=== PATIENT | male | born 1955 | race Caucasian/White ===

== ENCOUNTER 2016-12-20 19:02 | Inpatient (IN) | payer OTHER ==
[2016-12-20] VITALS (9 sets, daily range): BP systolic 129–160; BP diastolic 89–99; PULSE 96–110; RESP 16–18; TEMP 97.8; O2SAT 82–98
[~2016-12-20] VITALS: Ht 172.7 cm; Wt 68.0 kg
[~2016-12-20 19:02] MED LIST: CHLO10 PO; DUONI NEB; FERR324T4 PO; FORM12I INH; IPRAAER IN; NICO21T TD; OMEP20TA39 PO; OXYC5 PO; TEMA15CA PO; THIA100T PO; ZOLP1TAB32 PO
[2016-12-20] MEDS ORDERED: SODIUM CHLORIDE 0.9% FLUSH 5 ML FLUSH IVF PRN (19:30)
[2016-12-20] MEDS ORDERED: methylPREDNISolone SOD SUCC 125 MG/2 ML VIAL IVP ONE (19:30)
[2016-12-20] MEDS: RESP: ALBUTEROL 2.5 MG/IPRATROPIUM 0.5 MG NEB (SCH) INH ×3 (19:43→23:14)
--- NOTE | 2016-12-20 19:52 | PD ---
HPI Chief Complaint: Respiratory Symptoms Time Seen by Provider: 19:16 Travel History International Travel<30 days: No Contact w/Intl Traveler<30days: No Traveled to known affect area: No History of Present Illness HPI 61-year-old male with history of COPD here for evaluation of shortness of breath. The patient has had progressive worsening shortness of breath over the last 2 weeks with cough productive of greenish sputum. No hemoptysis. Coworkers noted that the patient did not look well today and advised that he present to the emergency department for evaluation. He denies chest pain. He does feel clammy with subjective fevers. Dyspnea is at rest, worse with exertion. O2 saturation was noted to be and 60% in triage, and the patient was brought straight back to a room. PFSH Past Medical History Asthma: No Cancer: No Cardiovascular Problems: No Chemotherapy: No COPD: Yes Diminished Hearing: No Endocrine: No Gastrointestinal Disorders: Yes (BLOOD IN STOOL) Genitourinary: No Immune Disorder: No Musculoskeletal: No Neurologic: No Psychiatric: No Reproductive: No Respiratory: Yes Radiation Therapy: No Past Surgical History Abdominal Surgery: No AICD: No Arteriovenous Shunt: No Cardiac Surgery: No Ear Surgery: No Endocrine Surgery: No Eye Surgery: No Genitourinary Surgery: No Gynecologic Surgery: No Insulin Pump: No Joint Replacement: No Oral Surgery: Yes (TONSILLECTOMY) Pacemaker: No Thoracic Surgery: No Tonsillectomy: Yes Other Surgery: Yes Social History Alcohol Use: Yes (SEVERAL BEERS AT NIGHT) Tobacco Use: Yes (> 1 PPD) Substance Use: No Allergies-Medications (Allergen,Severity, Reaction): Coded Allergies: No Known Allergies (Verified , 03/15/15) Reported Meds & Prescriptions Reported Meds & Active Scripts Active Reported Vitamin B-Complex (B-Complex Vitamins) 1 Tab 1 Tab PO DAILY [place] (Hydrocodone-Acetaminophen) 10-325 Mg Tab 1 Tab PO Q6H PRN Multiple Vitamin 1 Tab 1 Tab PO DAILY Omeprazole 20 Mg Tab 20 Mg PO DAILY Nicotine Patch (Nicotine) 21 Mg/24 Hr Patch 21 Mg T-DERMAL DAILY Ferrous Sulfate 325 Mg Tab 325 Mg PO DAILY Combivent Respimat Inh (Ipratropium-Albuterol Inh) 20-100 Detention/Act Aero 1 Puff INH QID Albuterol Neb (Albuterol Sulfate) 2.5 Mg/0.5 Ml Neb 2.5 Mg NEB QID NEB PRN Note: The Albuterol Sulfate Inhalation Solution is concentrated and must be diluted. Read complete instructions carefully before using. Review of Systems Except as stated in HPI: all other systems reviewed are Neg Physical Exam Narrative GENERAL: Well-developed, thin, awake, alert, speaking full sentences, mild respiratory distress. SKIN: Warm and dry. HEAD: Atraumatic. Normocephalic. EYES: Pupils equal and round. No scleral icterus. No injection or drainage. ENT: Mucous membranes pink and moist. NECK: Trachea midline. No JVD. CARDIOVASCULAR: Regular rate and rhythm. No murmur appreciated. RESPIRATORY: No accessory muscle use. Bilateral inspiratory and expiratory wheezes with coarse breath sounds bilaterally. Breath sounds equal bilaterally. GASTROINTESTINAL: Abdomen soft, non-tender, nondistended. MUSCULOSKELETAL: No obvious deformities. No clubbing. No cyanosis. No edema. NEUROLOGICAL: Awake and alert. No obvious cranial nerve deficits. Motor grossly within normal limits. Normal speech. PSYCHIATRIC: Appropriate mood and affect; insight and judgment normal. Data Data Orders Complete Blood Count With Diff (12/20/16 19:22) Comprehensive Metabolic Panel (12/20/16 19:22) B-Type Natriuretic Peptide (12/20/16 19:22) Act Partial Throm Time (Ptt) (12/20/16 19:22) Prothrombin Time / Inr (Pt) (12/20/16 19:22) Ckmb (Isoenzyme) Profile (12/20/16 19:22) Troponin I (12/20/16 19:22) Influenzae A/B Antigen (12/20/16 19:22) Blood Culture (12/20/16 19:22) Iv Access Insert/Monitor (12/20/16 19:22) Electrocardiogram (12/20/16 19:22) Ecg Monitoring (12/20/16 19:22) Oximetry (12/20/16 19:22) Oxygen Administration (12/20/16 19:22) Chest, Single Ap (12/20/16 19:22) Sodium Chloride 0.9% Flush (Ns Flush) (12/20/16 19:30) Methylprednisolone So Succ Inj (Solumedr (12/20/16 19:30) Albuterol-Ipratropium Neb (Duoneb Neb) (12/20/16 19:30) Lactic Acid (2/8/17 19:22) Ceftriaxone Inj (Rocephin Inj) (12/20/16 20:15) Azithromycin Inj (Zithromax Inj) (12/20/16 20:15) Sodium Chlor 0.9% 1000 Ml Inj (Ns 1000 M (12/20/16 20:30) Sodium Polysty Sulfate Liq (Kayexalate L (12/20/16 21:00) Labs Laboratory Tests Test 12/20/16 12/20/16 19:25 19:52 White Blood Count 5.9 TH/MM3 Red Blood Count 4.02 MIL/MM3 Hemoglobin 13.6 GM/DL Hematocrit 41.2 % Mean Corpuscular Volume 102.3 FL Mean Corpuscular Hemoglobin 33.9 PG Mean Corpuscular Hemoglobin 33.1 % Concent Red Cell Distribution Width 13.4 % Platelet Count 139 TH/MM3 Mean Platelet Volume 9.4 FL Neutrophils (%) (Auto) 87.8 % Lymphocytes (%) (Auto) 5.7 % Monocytes (%) (Auto) 5.7 % Eosinophils (%) (Auto) 0.7 % Basophils (%) (Auto) 0.1 % Neutrophils # (Auto) 5.3 TH/MM3 Lymphocytes # (Auto) 0.3 TH/MM3 Monocytes # (Auto) 0.3 TH/MM3 Eosinophils # (Auto) 0.0 TH/MM3 Basophils # (Auto) 0.0 TH/MM3 CBC Comment AUTO DIFF Neutrophils % (Manual) 76 % Band Neutrophils % 12 % Lymphocytes % 8 % Monocytes % 4 % Neutrophils # (Manual) 5.2 TH/MM3 Differential Comment FINAL DIFF MANUAL Platelet Estimate LOW Platelet Morphology Comment NORMAL Prothrombin Time 10.9 SEC Prothromb Time International 1.0 RATIO Ratio Activated Partial 44.1 SEC Thromboplast Time Sodium Level 122 MEQ/L Potassium Level 5.7 MEQ/L Chloride Level 85 MEQ/L Carbon Dioxide Level 30.8 MEQ/L Anion Gap 6 MEQ/L Blood Urea Nitrogen 29 MG/DL Creatinine 1.60 MG/DL Estimat Glomerular Filtration 44 ML/MIN Rate Random Glucose 88 MG/DL Calcium Level 8.6 MG/DL Total Bilirubin 0.7 MG/DL Aspartate Amino Transf 27 U/L (AST/SGOT) Alanine Aminotransferase 24 U/L (ALT/SGPT) Alkaline Phosphatase 138 U/L Total Creatine Kinase 61 U/L Troponin I 0.06 NG/ML B-Type Natriuretic Peptide 1535 PG/ML Total Protein 7.2 GM/DL Albumin 3.2 GM/DL Lactic Acid Level 2.2 mmol/L MDM Medical Decision Making Medical Screen Exam Complete: Yes Emergency Medical Condition: Yes Medical Record Reviewed: Yes Interpretation(s) EKG: Sinus, rate 101, rightward axis, normal intervals, no acute ischemic abnormality. Differential Diagnosis COPD exacerbation, pneumonia, pulmonary edema, CHF, pleural effusion, PE, influenza, ACS Narrative Course Vital signs CBC shows WBC 5.9, hemoglobin 13.6, hematocrit 41.2, platelets 139. Neutrophils 76%, band neutrophils 12%. CMP is remarkable for sodium 122, potassium 5.7, chloride 85, BUN 29, creatinine 1.6, GFR 44. Lactic acid is 2.2. BNP is 1535. Troponin is 0.06. Chest x-ray shows new right basilar airspace disease most characteristic of bronchopneumonia. The patient was given 3 DuoNeb treatments and IV Solu-Medrol and is reporting significant subjective improvement in breathing. He saw his coarse breath sounds bilaterally with end expiratory wheezes bilaterally. O2 saturation is now 78% on room air, 93% on 2 L nasal cannula. Patient was also given IV azithromycin and IV Rocephin. There are no EKG changes for hyperkalemia. The patient was given Kayexalate. A long discussion was had with the patient with his family at the bedside. The patient states he does not wish to stay in the hospital and that he is feeling improved. I continued to reinforce how sick the patient is and that he requires admission to the ICU. It took about 20 minutes to convince patient to be admitted at least for overnight. Case discussed with principal bioinformatics specialist Dr. Williamson. The patient will be admitted to the intensive care service here in [place]. Critical Care Narrative Aggregate critical care time was 45 minutes. Time to perform other separately billable procedures was not included in the critical care time. My time did not include minutes spent treating any other patients simultaneously or on activities that did not directly contribute to the patient's treatment. The services I provided to this patient were to treat and/or prevent clinically significant deterioration that could result in: , permanent disability, septic shock, respiratory failure I provided critical care services requiring my management, as noted below: Chart data review, documentation time, medication orders and management, vital sign assessments/reviewing monitor data, ordering and reviewing lab tests, ordering and interpreting/reviewing x-rays and diagnostic studies, care of the patient and discussion of the patient with the admitting physicians. Diagnosis Primary Impression: Sepsis Qualified Code: A41.9 - Sepsis, due to unspecified organism Additional Impressions: Pneumonia Qualified Code: J18.1 - Pneumonia of right lower lobe due to infectious organism Hyponatremia Hyperkalemia Admitting Information Admitting Physician Requests: Admit Ramana Shook MD Dec 20, 2016 19:52
--- NOTE | 2016-12-20 20:01 | RADHPO ---
EXAM DATE/TIME: 12/20/2016 19:28 [facility] COMPARISON: CHEST SINGLE AP, March 15, 2015, 9:24. INDICATIONS : Shortness of breath. MEDICAL HISTORY : Chronic obstructive pulmonary disease. SURGICAL HISTORY : None. ENCOUNTER: Initial ACUITY: 1 day PAIN SCORE: 3/10 LOCATION: Bilateral chest FINDINGS: Examination reveals ill-defined airspace disease right lung base most characteristic of a bronchopneu monia. Heart size upper limits normal. Parenchymal scarring left suprahilar region with retraction si milar to prior study. Underlying emphysema. CONCLUSION: 1. New right basilar airspace disease most characteristic of bronchopneumonia. Comparison March 2015. Westley Del Cid MD on December 20, 2016 at 19:58 Board Certified Radiologist. This report was verified electronically.
[2016-12-20 20:10] LABS: AUTOMATED NEUTROPHIL # 5.3 TH/MM3 (1.8-7.7); BASOPHIL % 0.1 % (0.0-2.0); EOSINOPHIL % 0.7 % (0.0-4.0); HEMATOCRIT 41.2 % (39.0-51.0); LYMPH % 5.7 % (9.0-44.0); LYMPHOCYTE # 0.3 TH/MM3 (1.0-4.8); MEAN CELL VOLUME 102.3 FL (80.0-100.0); MEAN CORPUSCULAR HEMOGLOBIN 33.9 PG (27.0-34.0); MEAN CORPUSCULAR HGB CONC 33.1 % (32.0-36.0); MONO % 5.7 % (0.0-8.0); NEUT % 87.8 % (16.0-70.0); PLATELET COUNT 139 TH/MM3 (150-450); RED BLOOD COUNT 4.02 MIL/MM3 (4.50-5.90); RED CELL DISTRIBUTION WIDTH 13.4 % (11.6-17.2); WHITE BLOOD COUNT 5.9 TH/MM3 (4.0-11.0)
[2016-12-20 20:13] LABS: HEMO FLAGS AUTO DIFF
[2016-12-20] MEDS ORDERED: cefTRIAXone INJ 1,000 MG in SODIUM CHLORIDE 0.9% INJ 100 ML IV ONE (20:15)
[2016-12-20] MEDS ORDERED: AZITHROMYCIN INJ 500 MG in SODIUM CHLOR 0.9% 250 ML INJ 250 ML IV ONE (20:15)
[2016-12-20 20:22] LABS: ANION GAP 6 MEQ/L (5-15); BICARBONATE 30.8 MEQ/L (21.0-32.0); BLOOD UREA NITROGEN 29 MG/DL (7-18); CHLORIDE 85 MEQ/L (98-107); POTASSIUM 5.7 MEQ/L (3.5-5.1)
[2016-12-20 20:23] LABS: APTT (PATIENT) 44.1 SEC (24.3-30.1); PROTHROMBIN TIME - PATIENT 10.9 SEC (9.8-11.6)
[2016-12-20 20:30] LABS: ALKALINE PHOSPHATASE 138 U/L (45-117); ALT (GPT) 24 U/L (12-78); AST (GOT) 27 U/L (15-37); CREATINE KINASE 61 U/L (39-308); GLOMERULAR FILTRATION RATE 44 ML/MIN (>89); TOTAL BILIRUBIN ADULT 0.7 MG/DL (0.2-1.0)
[2016-12-20] MEDS ORDERED: SODIUM CHLOR 0.9% 1000 ML INJ 1,000 ML IV ONE (20:30)
[2016-12-20 20:32] LABS: SODIUM (NA) 122 MEQ/L (136-145)
[2016-12-20 20:41] LABS: BANDS 12 % (0-6); NEUTROPHIL # MANUAL DIFF 5.2 TH/MM3 (1.8-7.7); PLATELET ESTIMATE SMEAR LOW (NORMAL); PLATELET MORPHOLOGY NORMAL (NORMAL); POLYS (SEG NEUTROPHILS) 76 % (16-70); SCAN/DIFF FINAL DIFF MANUAL
[2016-12-20] MEDS ORDERED: SODIUM POLYSTYRENE SULFONATE SUSP 15 GM/60 ML CUP PO ONE (21:00)
[2016-12-20] MEDS ORDERED: IPRAAER INH (21:07)
[2016-12-20] MEDS ORDERED: ALBU.5I NEB (21:07)
[2016-12-20] MEDS ORDERED: FERR325T PO (21:07)
[2016-12-20] MEDS ORDERED: B-COTAB41 PO (21:12)
[2016-12-20] MEDS ORDERED: OMEP20TA PO (21:12)
[2016-12-20] MEDS ORDERED: MULTTAB67 PO (21:12)
[2016-12-20] MEDS ORDERED: HYDR-3366 PO (21:12)
[2016-12-20] MEDS ORDERED: NICO21DI2 T-DERMAL (21:12)
[2016-12-20] MEDS ORDERED: CEFEPIME INJ 2,000 MG in SODIUM CHLORIDE 0.9% INJ 100 ML IV SCH (21:30)
[2016-12-20] MEDS ORDERED: ACETAMINOPHEN 325 MG TAB PO PRN (21:30)
[2016-12-20] MEDS ORDERED: SENNOSIDES 8.6 MG TAB PO PRN (21:30)
[2016-12-20] MEDS ORDERED: LORazepam 2 MG/ML VIAL IV PUSH PRN ×4 (21:30)
[2016-12-20] MEDS ORDERED: DEXTROSE 50% IN WATER 50 ML VIAL(D50) IV PUSH PRN (21:30)
[2016-12-20] MEDS ORDERED: MISCELLANEOUS NURSING INFORMATION XX SCH (21:30)
[2016-12-20] MEDS ORDERED: GLUCAGON 1 MG/ML VIAL OTHER PRN (21:30)
[2016-12-20] MEDS ORDERED: LORazepam 2 MG TAB PO PRN (21:30)
[2016-12-20] MEDS ORDERED: MORPHINE SULFATE 4 MG/ML INJ IV PRN (21:30)
[2016-12-20] MEDS ORDERED: FLUMAZENIL 0.5 MG/5 ML VIAL IV PUSH PRN (21:30)
[2016-12-20] MEDS ORDERED: ONDANSETRON HCL 4 MG/2 ML VIAL IV PRN (21:30)
[2016-12-20] MEDS ORDERED: CHLORHEXIDINE GLUCONATE 2 % 1 PACK (2 CLOTHS) TOP PRN (21:30)
--- NOTE | 2016-12-20 21:33 | PD.PROCEDR ---
Procedure Note Procedure We are asked to admit Mr. Edin Guzmán by Dr. Shook/ED physician. Patient is currently on 3 L nasal cannula but desaturates easily once nasal cannula removed. History of tobaccoism and EtOH use. According to ED physician, patient is attempting to leave AMA. Request patient be kept in ED overnight in case of respiratory compromise for possible intubation or attempts to leave AMA as I'm unable to travel to [facility] per my contrast with [facility]. They required to stay admitting campus to evaluate patients at this facility. CIWA protocol initiated along with daily vitamin bag. Nicotine patch will be continued. If the patient decompensates and is intubated, we will for request emergency transfer to either [place] ER to [facility] ER or to ICU bed we are not able to travel to [place] to evaluate patients from 6 PM to 6 AM. ICU Physician will be notified in a.m. of admission of this patient to [place]. Ayad Williamson MD Dec 20, 2016 21:33
[2016-12-20] MEDS: SODIUM CHLOR 0.9% 1000 ML INJ 1,000 ML IV SCH (21:42)
[2016-12-20] MEDS: HEPARIN SODIUM - SQ 10,000 UNITS/ML VIAL SQ SCH (21:47)
[2016-12-20] MEDS ORDERED: AZITHROMYCIN INJ 500 MG in SODIUM CHLOR 0.9% 250 ML INJ 250 ML IV SCH (22:00)
[2016-12-20] MEDS: methylPREDNISolone SOD SUCC 40 MG/1 ML VIAL IV PUSH SCH (23:34)
[2016-12-20] MEDS: CEFEPIME INJ 2,000 MG in SODIUM CHLORIDE 0.9% INJ 100 ML IV SCH (23:35)
[2016-12-21] VITALS (25 sets, daily range): BP systolic 128–180; BP diastolic 82–108; PULSE 80–102; RESP 14–25; TEMP 97.8–98.6; O2SAT 94–99
[2016-12-21 00:08] LABS: CORTISOL 93.1 MCG/DL
[2016-12-21] MEDS: RESP: ALBUTEROL 2.5 MG/IPRATROPIUM 0.5 MG NEB (SCH) INH ×6 (03:10→23:11)
[2016-12-21] MEDS: CHLORHEXIDINE GLUCONATE 2 % 1 PACK (2 CLOTHS) TOP SCH (04:00)
--- NOTE | 2016-12-21 04:57 | EKG ---
Date Performed: 12/20/2016 Time Performed: 19:21:42 PTAGE: 61 years EKG: Sinus tachycardia Rightward axis rSr'(V1) - probable normal variant Borderline ECG COMPARED TO PRIOR ELECTROCARDIOGRAM, Rate has increased. PREVIOUS TRACING : 03/15/2015 08.57 DOCTOR: Ryan Devlin Interpretating Date/Time 12/21/2016 04:56:44
[2016-12-21 05:58] LABS: AUTOMATED NEUTROPHIL # 4.1 TH/MM3 (1.8-7.7); BASOPHIL % 0.1 % (0.0-2.0); EOSINOPHIL % 0.1 % (0.0-4.0); HEMATOCRIT 37.1 % (39.0-51.0); LYMPHOCYTE # 0.2 TH/MM3 (1.0-4.8); MEAN CELL VOLUME 101.6 FL (80.0-100.0); MEAN CORPUSCULAR HEMOGLOBIN 34.1 PG (27.0-34.0); MEAN CORPUSCULAR HGB CONC 33.6 % (32.0-36.0); MONO % 4.2 % (0.0-8.0); NEUT % 91.6 % (16.0-70.0); PLATELET COUNT 125 TH/MM3 (150-450); RED BLOOD COUNT 3.65 MIL/MM3 (4.50-5.90); WHITE BLOOD COUNT 4.5 TH/MM3 (4.0-11.0)
[2016-12-21 06:08] LABS: HEMO FLAGS DIFF FINAL
[2016-12-21 06:10] LABS: CHLORIDE 91 MEQ/L (98-107); POTASSIUM 5.2 MEQ/L (3.5-5.1); SODIUM (NA) 128 MEQ/L (136-145)
--- NOTE | 2016-12-21 06:23 | RADHPO ---
EXAM DATE/TIME: 12/21/2016 05:19 [facility] COMPARISON: CT THORAX W/O CONTRAST, March 17, 2015, 20:22. CHEST SINGLE AP, December 20, 2016, 19:28. INDICATIONS : Short of breath. MEDICAL HISTORY : Chronic obstructive pulmonary disease. SURGICAL HISTORY : None. ENCOUNTER: Subsequent ACUITY: 2 days PAIN SCORE: 3/10 LOCATION: Bilateral chest FINDINGS: Right lower lobe consolidation again seen greatest in the right lower lobe. Hyperinflation. Cardiomeg natalie. Left upper lobe 3.7 cm masslike area identified. CT chest suggested. CONCLUSION: Right lower lobe consolidation and abnormal opacity in the left upper lobe suspect for a mass. Jerry Hoskins MD on December 21, 2016 at 6:21 Board Certified Radiologist. This report was verified electronically.
[2016-12-21 06:34] LABS: ALKALINE PHOSPHATASE 123 U/L (45-117); ALT (GPT) 20 U/L (12-78); ANION GAP 7 MEQ/L (5-15); AST (GOT) 20 U/L (15-37); BICARBONATE 29.6 MEQ/L (21.0-32.0); BLOOD UREA NITROGEN 25 MG/DL (7-18); GLOMERULAR FILTRATION RATE 68 ML/MIN (>89); MAGNESIUM 2.2 MG/DL (1.5-2.5); TOTAL BILIRUBIN ADULT 0.5 MG/DL (0.2-1.0)
[2016-12-21] MEDS: methylPREDNISolone SOD SUCC 40 MG/1 ML VIAL IV PUSH SCH ×3 (06:40→21:21)
[2016-12-21] MEDS: INSULIN NovoLIN REGULAR SUPPLEMENTAL SCALE SQ SCH ×3 (06:42→21:00)
[2016-12-21] MEDS: DOCUSATE SODIUM 100 MG CAP PO SCH ×2 (09:00→20:52)
[2016-12-21] MEDS: REMOVE OLD PATCH T-DERMAL SCH (09:00)
[2016-12-21] MEDS: HEPARIN SODIUM - SQ 10,000 UNITS/ML VIAL SQ SCH ×2 (10:18→21:21)
[2016-12-21] MEDS: PANTOPRAZOLE SOD 20 MG DELAYED RELEASE TAB PO SCH (10:18)
[2016-12-21] MEDS: VITAMIN B COMPLEX/VIT C TAB PO SCH (10:18)
[2016-12-21] MEDS: MULTIVITAMIN TAB PO SCH (10:18)
[2016-12-21] MEDS: FERROUS SULFATE 325 MG (65 MG ELEMENTAL IRON) TAB PO SCH (10:19)
[2016-12-21] MEDS: CEFEPIME INJ 2,000 MG in SODIUM CHLORIDE 0.9% INJ 100 ML IV SCH ×2 (10:20→23:22)
[2016-12-21] MEDS: NICOTINE 21 MG/24 HR PATCH T-DERMAL SCH (10:24)
[2016-12-21] MEDS: SODIUM CHLOR 0.9% 1000 ML INJ 1,000 ML IV SCH ×2 (10:29→21:12)
[2016-12-21] MEDS: SODIUM CHLORIDE 0.9% FLUSH 5 ML FLUSH IV FLUSH SCH ×2 (10:29→21:00)
[2016-12-21] MEDS: ACETAMINOPHEN/HYDROcodone 325 MG/10 MG TAB PO PRN ×2 (10:34→21:39)
--- NOTE | 2016-12-21 13:00 | EC ---
Study Study Date:12/21/2016 STUDY CONCLUSIONS SUMMARY - Left ventricle: The cavity size was normal. Wall thickness was normal. Systolic function was normal. The estimated ejection fraction was in the range of 55% to 60%. Wall motion was normal; there were no regional wall motion abnormalities. - Mitral valve: Mild regurgitation. - Tricuspid valve: Mild regurgitation. - Pulmonary arteries: Systolic pressure was moderately to severely increased. PA peak pressure: 64mm Hg (S). If LV function is below 40, please consider prescribing an ACEI or ARB or document rationale for non-use. PROCEDURE DATA STUDY STATUS: Elective. Procedure: Transthoracic echocardiography. Image quality was good. Scanning was performed from the parasternal, apical, and subcostal acoustic windows. Study completion: The patient tolerated the procedure well. Transthoracic echocardiography. M-mode, complete 2D, complete spectral Doppler, and color Doppler. Patient status: Inpatient. CARDIAC ANATOMY LEFT VENTRICLE: The cavity size was normal. Wall thickness was normal. Systolic function was normal. The estimated ejection fraction was in the range of 55% to 60%. Wall motion was normal; there were no regional wall motion abnormalities. AORTIC VALVE: Trileaflet; normal thickness leaflets. Doppler: Transvalvular velocity was within the normal range. There was no stenosis. No regurgitation. AORTA: Aortic root: The aortic root was normal in size. MITRAL VALVE: Structurally normal valve. Doppler: Transvalvular velocity was within the normal range. There was no evidence for stenosis. Mild regurgitation. LEFT ATRIUM: The atrium was normal in size. RIGHT VENTRICLE: The cavity size was normal. Wall thickness was normal. PULMONIC VALVE: Doppler: Transvalvular velocity was within the normal range. There was no evidence for stenosis. No regurgitation. TRICUSPID VALVE: Structurally normal valve. Doppler: Transvalvular velocity was within the normal range. Mild regurgitation. PULMONARY ARTERY: The main pulmonary artery was normal-sized. Systolic pressure was moderately to severely increased. RIGHT ATRIUM: The atrium was normal in size. PERICARDIUM: There was no pericardial effusion. SYSTEMIC VEINS: Inferior vena cava: The vessel was normal in size. BASIC MEASUREMENTS ADULT Normal Left ventricle LV internal dimension, ED, chordal level, *39.9 mm 43-52 PLAX LV internal dimension, ES, chordal level, 30 mm 23-38 PLAX Fractional shortening, chordal level, PLAX *25 % >29 LV posterior wall thickness, ED 10.8 mm IVS/LVPW ratio, ED 1.12 <1.3 Ventricular septum Septal thickness, ED 12.1 mm Aortic valve Leaflet separation 23 mm 15-26 Right ventricle RV internal dimension, ED, PLAX 36.7 mm 19-38 BASIC MEASUREMENTS ADULT Normal Aortic valve Leaflet separation 23 mm 15-26 Aorta Root diameter, ED 36 mm 20-37 Left atrium Anterior-posterior dimension, ES 40 mm 19-40 LA/aortic root ratio 1.11 DOPPLER MEASUREMENTS ADULT Normal Main pulmonary artery Pressure, S *64 mm Hg =30 Tricuspid valve Regurgitant peak velocity 349 cm/s Peak RV-RA gradient, S 49 mm Hg Maximal regurgitant velocity 349 cm/s Systemic veins Estimated CVP 10 mm Hg Right ventricle RV pressure, S *64 mm Hg <30 LEGEND: Mean values are shown as u=mean value. Asterisk (*) hurtado values outside specified normal range. Prepared and signed by Marcellus Rob [id number]
[2016-12-21 13:32] LABS: FREE T3 1.2 PG/ML (2.18-3.98); FREE T4 1.5 NG/DL (0.76-1.46)
--- NOTE | 2016-12-21 14:49 | HHI.HP ---
HPI Service Critical Care Medicine Primary Care Physician [facility] Admission Diagnosis sepsis, pneumonia, hyponatremia, hyperkalemia Diagnosis: Chief Complaint: Shortness of breath Travel History International Travel<30 Days: No Contact w/Intl Traveler <30 Da: No Traveled to Known Affected Are: No History of Present Illness History of Present Illness HPI 61-year-old male with history of COPD here for evaluation of shortness of breath. The patient has had progressive worsening shortness of breath over the last 2 weeks with cough productive of greenish sputum. No hemoptysis. Coworkers noted that the patient did not look well today and advised that he present to the emergency department for evaluation. He denies chest pain. He does feel clammy with subjective fevers. Dyspnea is at rest, worse with exertion. O2 saturation was noted to be and 60% in triage, patient was placed on nasal cannula in the ER and given IV steroids, antibiotics and bronchodilators. ER physician felt patient needed to be admitted to the ICU under the wood turner service as he might need intubation and also for risk of going into alcohol withdrawal. Patient was accepted for admission by critical care medicine service at night. I evaluated the patient this morning in the ER. At the time of my evaluation he was in the ER stretcher on nasal cannula and did not appear to be in acute distress however did have significant expiratory wheezing. History PFSH Past Medical History Asthma: No Cancer: No Cardiovascular Problems: No Chemotherapy: No COPD: Yes Diminished Hearing: No Endocrine: No Gastrointestinal Disorders: Yes (BLOOD IN STOOL) Genitourinary: No Immune Disorder: No Musculoskeletal: No Neurologic: No Psychiatric: No Reproductive: No Respiratory: Yes Radiation Therapy: No Past Surgical History Abdominal Surgery: No AICD: No Arteriovenous Shunt: No Cardiac Surgery: No Ear Surgery: No Endocrine Surgery: No Eye Surgery: No Genitourinary Surgery: No Gynecologic Surgery: No Insulin Pump: No Joint Replacement: No Oral Surgery: Yes (TONSILLECTOMY) Pacemaker: No Thoracic Surgery: No Tonsillectomy: Yes Other Surgery: Yes Social History Alcohol Use: Yes (SEVERAL BEERS AT NIGHT) Tobacco Use: Yes (> 1 PPD) Substance Use: No Allergies-Medications Allergies-Medications (Allergen,Severity, Reaction): Coded Allergies: No Known Allergies (Verified , 03/15/15) Reported Meds & Prescriptions Reported Meds & Active Scripts Active Reported Vitamin B-Complex (B-Complex Vitamins) 1 Tab 1 Tab PO DAILY [place] (Hydrocodone-Acetaminophen) 10-325 Mg Tab 1 Tab PO Q6H PRN Multiple Vitamin 1 Tab 1 Tab PO DAILY Omeprazole 20 Mg Tab 20 Mg PO DAILY Nicotine Patch (Nicotine) 21 Mg/24 Hr Patch 21 Mg T-DERMAL DAILY Ferrous Sulfate 325 Mg Tab 325 Mg PO DAILY Combivent Respimat Inh (Ipratropium-Albuterol Inh) 20-100 Correction/Act Aero 1 Puff INH QID Albuterol Neb (Albuterol Sulfate) 2.5 Mg/0.5 Ml Neb 2.5 Mg NEB QID NEB PRN Note: The Albuterol Sulfate Inhalation Solution is concentrated and must be diluted. Read complete instructions carefully before using. ROS Review of Systems Except as stated in HPI: all other systems reviewed are Neg Physical Exam Vital Signs Vital Signs Date Time Temp Pulse Resp B/P Pulse Ox O2 Delivery O2 Flow Rate FiO2 12/21/16 11:18 100 21 180/98 94 12/21/16 09:15 97.8 94 25 160/99 12/21/16 09:00 97 12/21/16 07:45 94 20 Nasal Cannula 3.00 12/21/16 07:45 20 98 Nasal Cannula 3 12/21/16 07:45 98 Nasal Cannula 3 12/21/16 07:45 97.9 97 20 140/94 98 Nasal Cannula 3 12/21/16 07:41 95 Nasal Cannula 3.00 12/21/16 06:00 91 18 137/88 97 Room Air 12/21/16 06:00 18 99 Room Air 3 12/21/16 05:00 91 18 130/86 99 Nasal Cannula 3 12/21/16 04:00 92 18 130/86 99 Nasal Cannula 3 12/21/16 04:00 99 Nasal Cannula 3 12/21/16 02:40 93 16 139/83 98 Nasal Cannula 3 12/21/16 01:40 95 16 152/87 95 Nasal Cannula 3 12/21/16 01:40 95 18 98 Nasal Cannula 3 12/21/16 00:40 96 16 134/85 98 Nasal Cannula 3 12/20/16 23:40 98 16 145/89 98 Nasal Cannula 3 12/20/16 22:40 100 16 129/89 97 Nasal Cannula 3 12/20/16 22:00 98 18 93 Nasal Cannula 12/20/16 21:40 96 18 144/99 97 Nasal Cannula 3 12/20/16 21:15 100 18 141/93 93 Nasal Cannula 3 12/20/16 20:45 93 Nasal Cannula 2 12/20/16 20:45 18 92 Nasal Cannula 3 12/20/16 20:40 110 18 160/90 82 Room Air 12/20/16 20:40 18 82 Room Air 12/20/16 19:45 94 Nasal Cannula 3.00 12/20/16 19:15 97.8 105 18 131/92 82 Physical Exam Narrative GENERAL: Well-developed, thin, awake, alert, laying in ER stretcher, mild respiratory distress. SKIN: Warm and dry. HEAD: Atraumatic. Normocephalic. EYES: Pupils equal and round. No scleral icterus. No injection or drainage. ENT: Mucous membranes pink and moist. NECK: Trachea midline. No JVD. CARDIOVASCULAR: Regular rate and rhythm. No murmur appreciated. RESPIRATORY: No accessory muscle use. Bilateral expiratory wheezes with coarse breath sounds bilaterally. Breath sounds equal bilaterally. GASTROINTESTINAL: Abdomen soft, non-tender, nondistended. MUSCULOSKELETAL: No obvious deformities. No clubbing. No cyanosis. No edema. NEUROLOGICAL: Awake and alert. No obvious cranial nerve deficits. Motor grossly within normal limits. Normal speech. PSYCHIATRIC: Appropriate mood and affect; insight and judgment normal. Laboratory Laboratory Tests Test 12/20/16 12/20/16 12/20/16 12/21/16 19:25 19:52 21:50 05:40 White Blood Count 5.9 Red Blood Count 4.02 Hemoglobin 13.6 Hematocrit 41.2 Mean Corpuscular Volume 102.3 Mean Corpuscular Hemoglobin 33.9 Mean Corpuscular Hemoglobin 33.1 Concent Red Cell Distribution Width 13.4 Platelet Count 139 Mean Platelet Volume 9.4 Neutrophils (%) (Auto) 87.8 Lymphocytes (%) (Auto) 5.7 Monocytes (%) (Auto) 5.7 Eosinophils (%) (Auto) 0.7 Basophils (%) (Auto) 0.1 Neutrophils # (Auto) 5.3 Lymphocytes # (Auto) 0.3 Monocytes # (Auto) 0.3 Eosinophils # (Auto) 0.0 Basophils # (Auto) 0.0 CBC Comment AUTO DIFF Neutrophils % (Manual) 76 Band Neutrophils % 12 Lymphocytes % 8 Monocytes % 4 Neutrophils # (Manual) 5.2 Differential Comment FINAL DIFF MANUAL Platelet Estimate LOW Platelet Morphology Comment NORMAL Prothrombin Time 10.9 Prothromb Time International 1.0 Ratio Activated Partial 44.1 Thromboplast Time Sodium Level 122 Potassium Level 5.7 Chloride Level 85 Carbon Dioxide Level 30.8 Anion Gap 6 Blood Urea Nitrogen 29 Creatinine 1.60 Estimat Glomerular Filtration 44 Rate Random Glucose 88 Uric Acid 5.5 Calcium Level 8.6 Total Bilirubin 0.7 Aspartate Amino Transf 27 (AST/SGOT) Alanine Aminotransferase 24 (ALT/SGPT) Alkaline Phosphatase 138 Total Creatine Kinase 61 Troponin I 0.06 B-Type Natriuretic Peptide 1535 Total Protein 7.2 Albumin 3.2 Lactic Acid Level 2.2 Serum Osmolality 266 Random Cortisol 93.1 Urine Osmolality 296 Urine Random Sodium 12 Test 12/21/16 05:45 White Blood Count 4.5 Red Blood Count 3.65 Hemoglobin 12.5 Hematocrit 37.1 Mean Corpuscular Volume 101.6 Mean Corpuscular Hemoglobin 34.1 Mean Corpuscular Hemoglobin 33.6 Concent Red Cell Distribution Width 13.0 Platelet Count 125 Mean Platelet Volume 9.4 Neutrophils (%) (Auto) 91.6 Lymphocytes (%) (Auto) 4.0 Monocytes (%) (Auto) 4.2 Eosinophils (%) (Auto) 0.1 Basophils (%) (Auto) 0.1 Neutrophils # (Auto) 4.1 Lymphocytes # (Auto) 0.2 Monocytes # (Auto) 0.2 Eosinophils # (Auto) 0.0 Basophils # (Auto) 0.0 CBC Comment DIFF FINAL Differential Comment Sodium Level 128 Potassium Level 5.2 Chloride Level 91 Carbon Dioxide Level 29.6 Anion Gap 7 Blood Urea Nitrogen 25 Creatinine 1.10 Estimat Glomerular Filtration 68 Rate Random Glucose 119 Calcium Level 7.5 Phosphorus Level 3.6 Magnesium Level 2.2 Total Bilirubin 0.5 Aspartate Amino Transf 20 (AST/SGOT) Alanine Aminotransferase 20 (ALT/SGPT) Alkaline Phosphatase 123 Total Protein 6.0 Albumin 2.5 Free Thyroxine 1.50 Free Triiodothyronine (T3) 1.20 pg/dL Thyroid Stimulating Hormone 0.089 3rd Gen Date/Time Procedure Status Source Growth 12/20/16 20:05 Influenza Types A,B Antigen ([place]) - Final Complete Nasal Washing NEGATIVE FOR FLU A AND B ANTIGEN.... 12/20/16 19:32 Aerobic Blood Culture - Preliminary Resulted Blood Peripheral NO GROWTH IN 1 DAY 12/20/16 19:32 Anaerobic Blood Culture - Preliminary Resulted Blood Peripheral NO GROWTH IN 1 DAY Result Diagram: 12/21/16 0545 12/21/16 0545 Imaging Last 24 hours Impressions Chest X-Ray 12/21/16 0000 Signed Impressions: Service Date/Time: December 05:19 - CONCLUSION: Right lower lobe consolidation and abnormal opacity in the left upper lobe suspect for a mass. Jerry Hoskins MD Chest X-Ray 12/20/161921 Signed Impressions: Service Date/Time: Tuesday, December 20, 2016 19:28 - CONCLUSION: 1. New right basilar airspace disease most characteristic of bronchopneumonia. Comparison March 2015. Westley Del Cid MD Assessment and Plan Assessment and Plan 61-year-old male with: Acute respiratory failure COPD exacerbation Suspected pneumonia History of alcohol abuse Possible hyperthyroidism hyponatremia Plan: Neuro: Follow neuro status. Pain medications as needed. Cardiovascular: Elevated BNP noted. Check 2-D echo. Continue maintenance IV fluid. Pulmonary: Continue supplemental O2. BiPAP as needed. Pulmonary consult for advanced COPD/suspected lung mass GI/liver: Advance by mouth diet if respiratory status permits. Renal/: IV hydration, strict intake output, monitor and replete electro lites , follow BUN/creatinine. Possible SIADH as etiology of hyponatremia. ID: Empiric IV antibiotic coverage with azithromycin, cefepime. Follow-up cultures Endocrine: SSI for glycemic control as needed Heme: Follow CBC Prophylaxis: PPI/SCDs/subcutaneous Lovenox Estiven Hutson MD Dec 21, 2016 14:49
--- NOTE | 2016-12-21 20:06 | MB ---
cc: CHAY BRYANT MD DATE OF CONSULTATION: 12/21/2016. REASON FOR CONSULTATION: Respiratory failure and pneumonia. REQUESTING PHYSICIAN: Dr. Hutson. HISTORY OF PRESENT ILLNESS: Mr. Guzmán is a 61-year-old white male with longstanding history of nicotine use and alcohol use. He has not been feeling well for the last two weeks or so. He had cough and congestion, mild discomfort in his chest. He did not have any fevers or chills and no night sweats. He has lot quite a bit of weight over the last year or so. He was evaluated in the emergency room. His chest x-ray shows he has right lower lobe consolidation and abnormal opacity. His WBC count is 4.5, hemoglobin 12.5, hematocrit 37.1, MCV 101, platelet count 125,000. Sodium 120, potassium 5.2, chloride 91, carbon dioxide 29, BUN 25, creatinine 1.0. PAST MEDICAL HISTORY: His past medical history is significant for: 1. History of hypertension. 2. COPD. 3. Nicotine use. 4. Alcohol use. MEDICATIONS: He is currently takin. Zithromax 500 milligrams a day. 2. Labetalol 20 milligrams PRN. 3. Ferrous sulfate 325 milligrams a day. 4. Nicotine patch. 5. Protonix 20 milligrams a day. 6. A multivitamin. 7. Solu-Medrol 40 milligrams q. 8 hours. 8. Cefepime 2 grams q. 12 hours. ALLERGIES: NO KNOWN DRUG ALLERGIES. SOCIAL HISTORY: He is for the last few years or so. He was a long time ago before. He has a long history of smoking which he has cut down to half a pack a day and he used to drink heavily and he has cut down to three to four beers a day. 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 FAMILY HISTORY: Noncontributory. REVIEW OF SYSTEMS: He has lost weight. His appetite is good. No fever or chills. No night sweats. No hemoptysis. No DVT or pulmonary embolism. PHYSICAL EXAMINATION: GENERAL: A well-built and well-nourished mild short of breath. VITAL SIGNS: Blood pressure 180/90, heart rate 102, respirations 21, temperature 97.8. HEAD, EYES, EARS, NOSE, THROAT: Pupils are equal and reactive to light. Oral mucosa and nasal mucosa are normal. NECK: The neck is supple. JVP not raised. CHEST: He has bilateral expiratory rhonchi. CARDIOVASCULAR: S1 and S2 normal. No ABDOMEN: Abdomen benign. EXTREMITIES: No edema. IMPRESSION: 1. COPD exacerbation. 2. Pneumonia. 3. Weight loss. 4. Nicotine use. 5. Alcohol use. PLAN: 1. I discussed with the patient and his we will give him aerosol treatment with albuterol and Atrovent. 2. Continue IV Solu-Medrol. 3. Antibiotics cefepime and Zithromax. 4. I will get a CT scan of the chest. 5. I advised him to quit smoking. 6. We will check his PFT when he gets better. Further treatment will depend on the course in the hospital. Thank you, Dr. Hutson, for this consult. MD TIFFANY Stanton/JCC /7:48 PM /7:56 PM QUINN
[2016-12-21] MEDS ORDERED: TEMA30CA PO (20:55)
[2016-12-21] MEDS: AZITHROMYCIN INJ 500 MG in SODIUM CHLOR 0.9% 250 ML INJ 250 ML IV SCH (21:23)
[2016-12-21] MEDS: MULTIVITAMIN INJ 10 ML, THIAMINE INJ 100 MG, FOLIC ACID INJ 1 MG in SODIUM CHLORID 0.9%... IV SCH (21:33)
[2016-12-21] MEDS: LABETALOL HCL 100 MG/20 ML VIAL IV PRN (21:40)
[2016-12-21] MEDS: TEMAZEPAM 15 MG CAP PO SCH (23:22)
[2016-12-22] VITALS (33 sets, daily range): BP systolic 116–177; BP diastolic 77–115; PULSE 74–86; RESP 10–33; TEMP 97.6–98.4; O2SAT 90–100
[2016-12-22] MEDS: CHLORHEXIDINE GLUCONATE 2 % 1 PACK (2 CLOTHS) TOP SCH (04:00)
[2016-12-22] MEDS: RESP: ALBUTEROL 2.5 MG/IPRATROPIUM 0.5 MG NEB (SCH) INH ×6 (04:19→22:53)
[2016-12-22] MEDS: SODIUM CHLOR 0.9% 1000 ML INJ 1,000 ML IV SCH (05:08)
[2016-12-22] MEDS: methylPREDNISolone SOD SUCC 40 MG/1 ML VIAL IV PUSH SCH ×3 (05:09→22:09)
[2016-12-22] MEDS: INSULIN NovoLIN REGULAR SUPPLEMENTAL SCALE SQ SCH ×4 (08:00→21:00)
[2016-12-22] MEDS: DOCUSATE SODIUM 100 MG CAP PO SCH ×2 (09:00→21:00)
[2016-12-22] MEDS: REMOVE OLD PATCH T-DERMAL SCH (09:00)
[2016-12-22] MEDS: PANTOPRAZOLE SOD 20 MG DELAYED RELEASE TAB PO SCH (09:18)
[2016-12-22] MEDS: VITAMIN B COMPLEX/VIT C TAB PO SCH (09:18)
[2016-12-22] MEDS: FERROUS SULFATE 325 MG (65 MG ELEMENTAL IRON) TAB PO SCH (09:18)
[2016-12-22] MEDS: ACETAMINOPHEN/HYDROcodone 325 MG/10 MG TAB PO PRN ×2 (09:19→16:34)
[2016-12-22] MEDS: HEPARIN SODIUM - SQ 10,000 UNITS/ML VIAL SQ SCH ×2 (09:19→21:39)
[2016-12-22] MEDS: NICOTINE 21 MG/24 HR PATCH T-DERMAL SCH (09:19)
[2016-12-22] MEDS: SODIUM CHLORIDE 0.9% FLUSH 5 ML FLUSH IV FLUSH SCH ×2 (09:20→21:46)
[2016-12-22] MEDS: MULTIVITAMIN TAB PO SCH (09:20)
[2016-12-22] MEDS: CEFEPIME INJ 2,000 MG in SODIUM CHLORIDE 0.9% INJ 100 ML IV SCH ×2 (09:20→22:09)
[2016-12-22] MEDS: MULTIVITAMIN INJ 10 ML, THIAMINE INJ 100 MG, FOLIC ACID INJ 1 MG in SODIUM CHLORID 0.9%... IV SCH (10:15)
--- NOTE | 2016-12-22 10:19 | RADHPO ---
EXAM DATE/TIME: 12/22/2016 08:17 [place] COMPARISON: CT THORAX W/O CONTRAST, March 17, 2015, 20:22. INDICATIONS : Short of breath. Abnormal chest x-ray. Evaluate lung density. RADIATION DOSE: 6.86 CTDIvol (mGy) MEDICAL HISTORY : Hypertension. Chronic obstructive pulmonary disease. Gastroesophageal reflux disease. SURGICAL HISTORY : None. ENCOUNTER: Initial ACUITY: 1 day PAIN SCALE: 0/10 LOCATION: Bilateral chest TECHNIQUE: Volumetric scanning of the chest was performed. Using automated exposure control and adjustment of t he mA and/or kV according to patient size, radiation dose was kept as low as reasonably achievable to obtain optimal diagnostic quality images. FINDINGS: The lungs are marked hyperinflated. Minimal patchy air space disease is present with peribronchial t hickening in both lungs with minimal interstitial and alveolar opacity in the right lower lobe. Small bilateral p leural effusions are noted larger on the right than the left. There is no axillary adenopathy. There is no radiographically significant mediastinal adenopathy. There is no pericardial effusion. CONCLUSION: Hyperinflation with patchy air space disease. Peribronchial thickening is present in both lungs with interstitial alveolar opacity in the right lung suspicious for an inflammatory process. Broderick Mcarthur MD FACR on December 22, 2016 at 9:57 Board Certified Radiologist. This report was verified electronically.
[2016-12-22] MEDS: LABETALOL HCL 100 MG/20 ML VIAL IV PRN (10:20)
[2016-12-22] MEDS: DILTIAZEM HCL 60 MG TAB PO SCH ×4 (12:29→22:05)
[2016-12-22 13:11] LABS: BICARBONATE 27.5 MEQ/L (21.0-32.0); MAGNESIUM 2.3 MG/DL (1.5-2.5); POTASSIUM 4.6 MEQ/L (3.5-5.1)
[2016-12-22 14:14] LABS: AUTOMATED NEUTROPHIL # 3.5 TH/MM3 (1.8-7.7); BASOPHIL % 0.2 % (0.0-2.0); HEMATOCRIT 36.3 % (39.0-51.0); LYMPH % 5.3 % (9.0-44.0); LYMPHOCYTE # 0.2 TH/MM3 (1.0-4.8); MEAN CELL VOLUME 101.8 FL (80.0-100.0); MEAN CORPUSCULAR HEMOGLOBIN 34.1 PG (27.0-34.0); MEAN CORPUSCULAR HGB CONC 33.5 % (32.0-36.0); MONO % 7.1 % (0.0-8.0); NEUT % 87.4 % (16.0-70.0); PLATELET COUNT 167 TH/MM3 (150-450); RED BLOOD COUNT 3.57 MIL/MM3 (4.50-5.90); RED CELL DISTRIBUTION WIDTH 13.2 % (11.6-17.2)
[2016-12-22 14:20] LABS: HEMO FLAGS DIFF FINAL
[2016-12-22] MEDS ORDERED: POTASSIUM CL 40 MEQ/30 ML LIQ UDC PO/TUBE PRN ×2 (16:30)
[2016-12-22] MEDS ORDERED: MAGNESIUM SULFATE INJ 2 GM in SODIUM CHLORIDE 0.9% INJ 96 ML IV PRN (16:30)
[2016-12-22] MEDS ORDERED: POTASSIUM PHOSPHATE MONOBASIC 500 MG TAB PO/TUBE PRN (16:30)
[2016-12-22] MEDS ORDERED: POTASSIUM CHLOR 40 MEQ PREMIX 100 ML IV PRN ×2 (16:30)
[2016-12-22] MEDS ORDERED: POTASSIUM PHOSPHATE INJ 30 MMOL in SODIUM CHLOR 0.9% 250 ML INJ 250 ML IV PRN (16:30)
[2016-12-22] MEDS ORDERED: POTASSIUM CHLOR 20 MEQ PREMIX 100 ML IV PRN ×2 (16:30)
[2016-12-22] MEDS ORDERED: MAGNESIUM OXIDE 400 MG TAB PO PRN (16:30)
[2016-12-22] MEDS ORDERED: MAGNESIUM SULFATE INJ 4 GM in SODIUM CHLORIDE 0.9% INJ 92 ML IV PRN (16:30)
[2016-12-22] MEDS ORDERED: POTASSIUM PHOSPHATE MONOBASIC 500 MG TAB PO PRN (16:30)
[2016-12-22] MEDS ORDERED: SODIUM PHOSPHATE INJ 30 MMOL in SODIUM CHLOR 0.9% 250 ML INJ 240 ML IV PRN (16:30)
--- NOTE | 2016-12-22 16:40 | HHI.CCPN ---
Subjective Remarks/Hospital Course 61-year-old male with history of COPD here for evaluation of shortness of breath. The patient has had progressive worsening shortness of breath over the last 2 weeks with cough productive of greenish sputum. No hemoptysis. Coworkers noted that the patient did not look well today and advised that he present to the emergency department for evaluation. He denies chest pain. He does feel clammy with subjective fevers. Dyspnea is at rest, worse with exertion. O2 saturation was noted to be and 60% in triage, patient was placed on nasal cannula in the ER and given IV steroids, antibiotics and bronchodilators. ER physician felt patient needed to be admitted to the ICU under the clearing house clerk service as he might need intubation and also for risk of going into alcohol withdrawal. Patient was accepted for admission by critical care medicine service at night. I evaluated the patient this morning in the ER. At the time of my evaluation he was in the ER stretcher on nasal cannula and did not appear to be in acute distress however did have significant expiratory wheezing. 12/22 Patient is on 2L oxygen with good sats, afebrile. Objective Vital Signs Date Time Temp Pulse Resp B/P Pulse Ox O2 Delivery O2 Flow Rate FiO2 12/22/16 15:00 78 10 134/79 90 12/22/16 08:00 97.6 12/22/16 07:43 Nasal Cannula 2.00 Intake and Output 12/21/16 12/21/16 12/22/16 08:00 16:00 00:00 Intake Total 1450 ml 720 ml 1740 ml Output Total 450 ml 400 ml Balance 1450 ml 270 ml 1340 ml Result Diagram: 12/22/16 1402 12/22/16 1220 Other Results Laboratory Tests Test 12/22/16 12/22/16 12:20 14:02 Sodium Level 135 MEQ/L Potassium Level 4.6 MEQ/L Chloride Level 99 MEQ/L Carbon Dioxide Level 27.5 MEQ/L Anion Gap 9 MEQ/L Blood Urea Nitrogen 20 MG/DL Creatinine 0.75 MG/DL Estimat Glomerular Filtration 105 ML/MIN Rate Random Glucose 126 MG/DL Calcium Level 8.2 MG/DL Phosphorus Level 2.1 MG/DL Magnesium Level 2.3 MG/DL White Blood Count 4.0 TH/MM3 Red Blood Count 3.57 MIL/MM3 Hemoglobin 12.1 GM/DL Hematocrit 36.3 % Mean Corpuscular Volume 101.8 FL Mean Corpuscular Hemoglobin 34.1 PG Mean Corpuscular Hemoglobin 33.5 % Concent Red Cell Distribution Width 13.2 % Platelet Count 167 TH/MM3 Mean Platelet Volume 8.4 FL Neutrophils (%) (Auto) 87.4 % Lymphocytes (%) (Auto) 5.3 % Monocytes (%) (Auto) 7.1 % Eosinophils (%) (Auto) 0.0 % Basophils (%) (Auto) 0.2 % Neutrophils # (Auto) 3.5 TH/MM3 Lymphocytes # (Auto) 0.2 TH/MM3 Monocytes # (Auto) 0.3 TH/MM3 Eosinophils # (Auto) 0.0 TH/MM3 Basophils # (Auto) 0.0 TH/MM3 CBC Comment DIFF FINAL Differential Comment Imaging Last Impressions Chest X-Ray 12/21/16 0000 Signed Impressions: Service Date/Time: , December 21, 2016 05:19 - CONCLUSION: Right lower lobe consolidation and abnormal opacity in the left upper lobe suspect for a mass. Jerry Hoskins MD Objective Remarks GENERAL: Patient is 61yo lying in bed in NAD SKIN: Warm and dry. HEAD: Normocephalic. EYES: No scleral icterus. No injection or drainage. NECK: Supple, trachea midline. No JVD or lymphadenopathy. CARDIOVASCULAR: Regular rate and rhythm without murmurs, gallops, or rubs. RESPIRATORY: Breath sounds equal bilaterally. Diminished with few scattered wheezing GASTROINTESTINAL: Abdomen soft, non-tender, nondistended. MUSCULOSKELETAL: No cyanosis, or edema. Neuro: A/Ox3 A/P Assessment and Plan 61-year-old male with: Resp Insiff COPD exacerbation Suspected pneumonia History of alcohol abuse Possible hyperthyroidism hyponatremia Plan: Neuro: Monitor neuro status, avoid sedatives., on CIWA protocol. On MVI/Thiamine/Folic acid Pulm: Continue with oxygen keep sat >92% Bronchodilators, place on Symbicort, Solumederol 40mg Q8 NIPPV PRN for resp distress, pulm is following- Dr. Aparicio CV: Place on Cardizem 60mg QID, monitor HR and BP keep MAP>65mmHg Echo showed EF 55-60%, no RWMA, mod pulm HTN with PAP 64mmhg GI/liver: On Po diet Renal/: Monitor renal function, I/O's, electrolytes replacement per protocol. Will need Phos replacement today. d/c IVF ID: Empiric IV antibiotic coverage with azithromycin, cefepime. Monitor for signs of infections ( Fever, WBC) Nasal washing for Influenza negative, follow up on BC Endocrine: SSI for glycemic control as needed Heme: Monitor CBC Prophylaxis: PPI/SCDs/subcutaneous Lovenox Level 3 Marilyn Martinez MD Dec 22, 2016 16:40
--- NOTE | 2016-12-22 18:27 | HHI.PR ---
Subjective Remarks 61 YOWM with COPD, Pn, Nicotine use Breathing better On [place] CT chest hyperinflation, patchy lung infilt No Fever Objective Vital Signs Vital Signs Date Time Temp Pulse Resp B/P Pulse Ox O2 Delivery O2 Flow Rate FiO2 12/22/16 16:00 97.9 82 19 151/87 96 12/22/16 16:00 82 12/22/16 15:00 78 10 134/79 90 12/22/16 14:00 78 10 134/79 90 12/22/16 14:00 86 12/22/16 13:00 84 17 151/90 97 12/22/16 12:00 86 12/22/16 11:02 80 29 177/114 96 12/22/16 11:00 76 25 155/101 97 12/22/16 10:31 74 15 148/85 100 12/22/16 10:16 84 23 170/97 100 12/22/16 10:13 84 19 173/115 100 12/22/16 10:00 82 18 167/97 96 12/22/16 10:00 82 12/22/16 09:01 84 22 158/91 100 12/22/16 09:00 82 12/22/16 08:39 84 11 164/95 97 12/22/16 08:00 97.6 82 13 138/84 91 12/22/16 08:00 82 12/22/16 07:43 95 Nasal Cannula 2.00 12/22/16 07:00 80 15 139/86 98 12/22/16 06:00 78 12/22/16 06:00 78 15 124/85 97 12/22/16 05:00 76 14 137/88 98 12/22/16 04:00 97.6 84 14 160/86 95 12/22/16 04:00 80 12/22/16 03:00 76 15 118/80 95 12/22/16 02:00 76 12/22/16 02:00 76 15 120/80 98 12/22/16 01:00 78 15 116/77 97 12/22/16 00:00 80 12/22/16 00:00 97.7 80 14 121/85 98 12/21/16 23:00 80 14 128/92 96 12/21/16 22:00 80 22 165/108 94 12/21/16 22:00 80 12/21/16 21:00 90 15 162/99 94 12/21/16 20:00 98.6 90 14 158/97 96 12/21/16 20:00 90 12/21/16 19:23 96 Nasal Cannula 3.00 12/21/16 19:00 92 17 157/94 96 I/O 12/21/16 12/21/16 12/21/16 12/22/16 12/22/16 12/22/16 07:00 15:00 23:00 07:00 15:00 23:00 Intake Total 1450 ml 720 ml 1740 ml 950 ml 1559 ml Output Total 450 ml 400 ml 750 ml 975 ml Balance 1450 ml 270 ml 1340 ml 200 ml 584 ml Intake Oral 720 ml 420 ml 100 ml 720 ml IV Total 1450 ml 1320 ml 850 ml 839 ml Output Urine Total 450 ml 400 ml 750 ml 975 ml # Voids 1 1 # Bowel Movements 2 0 0 0 Result Diagram: 12/22/16 1402 12/22/16 1220 Objective Remarks GENERAL: MBMN WM, mild sob SKIN: Warm and dry. HEAD: Normocephalic. EYES: No scleral icterus. No injection or drainage. NECK: Supple, trachea midline. No JVD or lymphadenopathy. CARDIOVASCULAR: Regular rate and rhythm without murmurs, gallops, or rubs. RESPIRATORY: Breath sounds equal bilaterally. No accessory muscle use. Exp rhonchi GASTROINTESTINAL: Abdomen soft, non-tender, nondistended. MUSCULOSKELETAL: No cyanosis, or edema. BACK: Nontender without obvious deformity. No CVA tenderness. A/P Assessment and Plan COPD exac Pneumonia Nicotine use ETOH Use Weight loss PLAN: IV Solumedrol Cont Abx Wean 02 Check cultures Smoking cessation Available prn over weekend. Morgan Aparicio MD Dec 22, 2016 18:27
[2016-12-22] MEDS: AZITHROMYCIN INJ 500 MG in SODIUM CHLOR 0.9% 250 ML INJ 250 ML IV SCH (21:40)
[2016-12-22] MEDS: TEMAZEPAM 15 MG CAP PO SCH (22:09)
[2016-12-22] MEDS: BUDESONIDE-FORMOTEROL 160/4.5 MCG INHALER INH SCH (22:13)
[2016-12-23] VITALS (41 sets, daily range): BP systolic 102–163; BP diastolic 60–90; PULSE 68–98; RESP 14–27; TEMP 97.8–99.1; O2SAT 84–100
[2016-12-23] MEDS: RESP: ALBUTEROL 2.5 MG/IPRATROPIUM 0.5 MG NEB (SCH) INH ×5 (03:27→19:39)
[2016-12-23] MEDS: CHLORHEXIDINE GLUCONATE 2 % 1 PACK (2 CLOTHS) TOP SCH (04:00)
[2016-12-23 06:03] LABS: AUTOMATED NEUTROPHIL # 1.7 TH/MM3 (1.8-7.7); BASOPHIL % 0.7 % (0.0-2.0); HEMATOCRIT 32.9 % (39.0-51.0); LYMPH % 10.1 % (9.0-44.0); LYMPHOCYTE # 0.2 TH/MM3 (1.0-4.8); MEAN CELL VOLUME 101.7 FL (80.0-100.0); MEAN CORPUSCULAR HEMOGLOBIN 33.4 PG (27.0-34.0); MEAN CORPUSCULAR HGB CONC 32.8 % (32.0-36.0); MONO % 8.8 % (0.0-8.0); NEUT % 80.4 % (16.0-70.0); PLATELET COUNT 150 TH/MM3 (150-450); RED BLOOD COUNT 3.24 MIL/MM3 (4.50-5.90); RED CELL DISTRIBUTION WIDTH 13.2 % (11.6-17.2); WHITE BLOOD COUNT 2.1 TH/MM3 (4.0-11.0)
[2016-12-23 06:06] LABS: HEMO FLAGS DIFF FINAL
[2016-12-23 06:13] LABS: POTASSIUM 4.3 MEQ/L (3.5-5.1)
[2016-12-23 06:16] LABS: MAGNESIUM 2.2 MG/DL (1.5-2.5)
[2016-12-23] MEDS: methylPREDNISolone SOD SUCC 40 MG/1 ML VIAL IV PUSH SCH ×3 (06:26→21:30)
[2016-12-23] MEDS: INSULIN NovoLIN REGULAR SUPPLEMENTAL SCALE SQ SCH ×4 (07:00→21:30)
[2016-12-23] MEDS: HEPARIN SODIUM - SQ 10,000 UNITS/ML VIAL SQ SCH ×2 (08:10→21:30)
[2016-12-23] MEDS: BUDESONIDE-FORMOTEROL 160/4.5 MCG INHALER INH SCH ×2 (08:10→21:35)
[2016-12-23] MEDS: PANTOPRAZOLE SOD 20 MG DELAYED RELEASE TAB PO SCH (08:11)
[2016-12-23] MEDS: LORazepam 1 MG TAB PO PRN (08:11)
[2016-12-23] MEDS: FERROUS SULFATE 325 MG (65 MG ELEMENTAL IRON) TAB PO SCH (08:11)
[2016-12-23] MEDS: DILTIAZEM HCL 60 MG TAB PO SCH ×4 (08:11→21:31)
[2016-12-23] MEDS: VITAMIN B COMPLEX/VIT C TAB PO SCH (08:11)
[2016-12-23] MEDS: SODIUM CHLORIDE 0.9% FLUSH 5 ML FLUSH IV FLUSH SCH ×2 (08:11→21:30)
[2016-12-23] MEDS: MULTIVITAMIN TAB PO SCH (08:11)
[2016-12-23] MEDS: DOCUSATE SODIUM 100 MG CAP PO SCH ×2 (08:12→21:00)
[2016-12-23] MEDS: REMOVE OLD PATCH T-DERMAL SCH (08:18)
[2016-12-23] MEDS: NICOTINE 21 MG/24 HR PATCH T-DERMAL SCH (08:18)
[2016-12-23] MEDS: MULTIVITAMIN INJ 10 ML, THIAMINE INJ 100 MG, FOLIC ACID INJ 1 MG in SODIUM CHLORID 0.9%... IV SCH (09:08)
[2016-12-23] MEDS: CEFEPIME INJ 2,000 MG in SODIUM CHLORIDE 0.9% INJ 100 ML IV SCH ×2 (10:41→17:56)
[2016-12-23] MEDS: ACETAMINOPHEN/HYDROcodone 325 MG/10 MG TAB PO PRN ×2 (14:53→23:38)
--- NOTE | 2016-12-23 16:36 | HHI.CCPN ---
Subjective Remarks/Hospital Course 61-year-old male with history of COPD here for evaluation of shortness of breath. The patient has had progressive worsening shortness of breath over the last 2 weeks with cough productive of greenish sputum. No hemoptysis. Coworkers noted that the patient did not look well today and advised that he present to the emergency department for evaluation. He denies chest pain. He does feel clammy with subjective fevers. Dyspnea is at rest, worse with exertion. O2 saturation was noted to be and 60% in triage, patient was placed on nasal cannula in the ER and given IV steroids, antibiotics and bronchodilators. ER physician felt patient needed to be admitted to the ICU under the psychological anthropologist service as he might need intubation and also for risk of going into alcohol withdrawal. Patient was accepted for admission by critical care medicine service at night. I evaluated the patient this morning in the ER. At the time of my evaluation he was in the ER stretcher on nasal cannula and did not appear to be in acute distress however did have significant expiratory wheezing. 12/22 Patient is on 2L oxygen with good sats, afebrile. Objective Vital Signs Date Time Temp Pulse Resp B/P Pulse Ox O2 Delivery O2 Flow Rate FiO2 12/23/16 11:02 78 18 135/78 96 12/23/16 08:02 99.1 12/23/16 08:01 Nasal Cannula 4.00 Intake and Output 12/22/16 12/22/16 12/23/16 08:00 16:00 00:00 Intake Total 950 ml 1559 ml 1275 ml Output Total 750 ml 975 ml 475 ml Balance 200 ml 584 ml 800 ml Result Diagram: 12/23/16 0545 12/23/16 0545 Other Results Microbiology Date/Time Procedure Status Source Growth 12/20/16 20:05 Influenza Types A,B Antigen ([place]) - Final Complete Nasal Washing NEGATIVE FOR FLU A AND B ANTIGEN.... Imaging Last Impressions Chest X-Ray 12/21/16 0000 Signed Impressions: Service Date/Time: December 05:19 - CONCLUSION: Right lower lobe consolidation and abnormal opacity in the left upper lobe suspect for a mass. Jerry Hoskins MD Objective Remarks GENERAL: Patient is 61yo lying in bed in NAD SKIN: Warm and dry. HEAD: Normocephalic. EYES: No scleral icterus. No injection or drainage. NECK: Supple, trachea midline. No JVD or lymphadenopathy. CARDIOVASCULAR: Regular rate and rhythm without murmurs, gallops, or rubs. RESPIRATORY: Breath sounds equal bilaterally. Diminished with few scattered wheezing GASTROINTESTINAL: Abdomen soft, non-tender, nondistended. MUSCULOSKELETAL: No cyanosis, or edema. Neuro: A/Ox3 A/P Assessment and Plan 61-year-old male with: Resp Insiff COPD exacerbation Suspected pneumonia History of alcohol abuse Possible hyperthyroidism hyponatremia Plan: Neuro: Monitor neuro status, avoid sedatives., on CIWA protocol. On MVI/Thiamine/Folic acid No signs of withdrawal Pulm: Continue with oxygen keep sat >92% Bronchodilators, place on Symbicort, Solumederol 40mg Q8 NIPPV PRN for resp distress, pulm is following- Dr. Aparicio CV: Place on Cardizem 60mg QID, monitor HR and BP keep MAP>65mmHg Echo showed EF 55-60%, no RWMA, mod pulm HTN with PAP 64mmhg GI/liver: On Po diet Renal/: Monitor renal function, I/O's, electrolytes replacement per protocol. Will need Phos replacement today. d/c IVF ID: Empiric IV antibiotic coverage with azithromycin, cefepime. Monitor for signs of infections ( Fever, WBC) Nasal washing for Influenza negative, follow up on BC Endocrine: SSI for glycemic control as needed Heme: Monitor CBC Prophylaxis: PPI/SCDs/subcutaneous Lovenox Level 3 Toby Nicole MD Dec 23, 2016 16:36
[2016-12-23] MEDS: AZITHROMYCIN INJ 500 MG in SODIUM CHLOR 0.9% 250 ML INJ 250 ML IV SCH (21:27)
[2016-12-23] MEDS: TEMAZEPAM 15 MG CAP PO SCH (21:31)
[2016-12-24] VITALS (34 sets, daily range): BP systolic 108–163; BP diastolic 63–101; PULSE 70–92; RESP 12–28; TEMP 97.5–98.7; O2SAT 89–100
[2016-12-24] MEDS: RESP: ALBUTEROL 2.5 MG/IPRATROPIUM 0.5 MG NEB (SCH) INH ×7 (00:30→22:55)
[2016-12-24] MEDS: CEFEPIME INJ 2,000 MG in SODIUM CHLORIDE 0.9% INJ 100 ML IV SCH ×3 (01:15→18:07)
[2016-12-24] MEDS: CHLORHEXIDINE GLUCONATE 2 % 1 PACK (2 CLOTHS) TOP SCH (04:00)
[2016-12-24] MEDS: INSULIN NovoLIN REGULAR SUPPLEMENTAL SCALE SQ SCH ×4 (05:38→20:39)
[2016-12-24] MEDS: methylPREDNISolone SOD SUCC 40 MG/1 ML VIAL IV PUSH SCH ×3 (05:40→20:30)
[2016-12-24 06:01] LABS: BLOOD GAS BASE EXCESS 3.7 mmol/L (-2-2); BLOOD GAS HCO3 30 mmol/L (22-26); BLOOD GAS METHEMOGLOBIN 0.5 % (0-2); BLOOD GAS O2 HGB SATURATION 93 % (90-100); BLOOD GAS OXYGEN CONTENT 14.1 Vol % (12.0-20.0); BLOOD GAS PCO2 67 mmHg (38-42); BLOOD GAS PO2 78 mmHg (61-120); BLOOD GAS TOTAL HGB 10.7 G/DL (12.0-16.0); CRITICAL VALUE YES; DRAW SITE RT BRACHIAL; LITER FLOW 2 L/M; NUMBER OF ARTERIAL PUNCTURES 1; OXYGEN DEVICE NASAL CANNULA; STAT NO
[2016-12-24 06:25] LABS: AUTOMATED NEUTROPHIL # 2.1 TH/MM3 (1.8-7.7); BASOPHIL % 0.1 % (0.0-2.0); EOSINOPHIL % 0.1 % (0.0-4.0); HEMATOCRIT 33.1 % (39.0-51.0); LYMPH % 9.3 % (9.0-44.0); LYMPHOCYTE # 0.2 TH/MM3 (1.0-4.8); MEAN CELL VOLUME 103.1 FL (80.0-100.0); MEAN CORPUSCULAR HEMOGLOBIN 33.5 PG (27.0-34.0); MEAN CORPUSCULAR HGB CONC 32.5 % (32.0-36.0); MONO % 8.5 % (0.0-8.0); PLATELET COUNT 147 TH/MM3 (150-450); RED BLOOD COUNT 3.21 MIL/MM3 (4.50-5.90); RED CELL DISTRIBUTION WIDTH 13.3 % (11.6-17.2); WHITE BLOOD COUNT 2.5 TH/MM3 (4.0-11.0)
[2016-12-24 06:32] LABS: HEMO FLAGS AUTO DIFF
[2016-12-24 06:37] LABS: POTASSIUM 4.2 MEQ/L (3.5-5.1)
[2016-12-24 06:40] LABS: BICARBONATE 30.2 MEQ/L (21.0-32.0); MAGNESIUM 2.1 MG/DL (1.5-2.5)
--- NOTE | 2016-12-24 06:41 | RADHPO ---
EXAM DATE/TIME: 12/24/2016 06:12 [facility] COMPARISON: CT THORAX W/O CONTRAST, December 22, 2016, 8:17. CHEST SINGLE AP, December 21, 2016, 5:19. INDICATIONS : Shortness of breath. MEDICAL HISTORY : Hypertension. Chronic obstructive pulmonary disease. Gastroesophageal reflux disease. SURGICAL HISTORY : None. ENCOUNTER: Subsequent ACUITY: 3 days PAIN SCORE: 0/10 LOCATION: Bilateral chest FINDINGS: Bibasilar and left perihilar consolidation not significantly changed. Small bilateral pleural effusio ns are present. The pleural effusion on the right appears to be new or increasing. CONCLUSION: Developing right pleural effusion. No significant change bibasilar and left perihilar consolidation. Ed Ramos MD on December 24, 2016 at 6:37 Board Certified Radiologist. This report was verified electronically.
[2016-12-24 07:28] LABS: SCAN/DIFF AUTO DIFF CONFIRMED
[2016-12-24] MEDS: FERROUS SULFATE 325 MG (65 MG ELEMENTAL IRON) TAB PO SCH (08:32)
[2016-12-24] MEDS: LORazepam 1 MG TAB PO PRN (08:32)
[2016-12-24] MEDS: MULTIVITAMIN TAB PO SCH (08:32)
[2016-12-24] MEDS: DILTIAZEM HCL 60 MG TAB PO SCH ×4 (08:32→20:30)
[2016-12-24] MEDS: PANTOPRAZOLE SOD 20 MG DELAYED RELEASE TAB PO SCH (08:32)
[2016-12-24] MEDS: DOCUSATE SODIUM 100 MG CAP PO SCH ×2 (08:32→20:31)
[2016-12-24] MEDS: VITAMIN B COMPLEX/VIT C TAB PO SCH (08:32)
[2016-12-24] MEDS: NICOTINE 21 MG/24 HR PATCH T-DERMAL SCH (08:32)
[2016-12-24] MEDS: REMOVE OLD PATCH T-DERMAL SCH (08:33)
[2016-12-24] MEDS: HEPARIN SODIUM - SQ 10,000 UNITS/ML VIAL SQ SCH ×2 (08:33→20:30)
[2016-12-24] MEDS: MULTIVITAMIN INJ 10 ML, THIAMINE INJ 100 MG, FOLIC ACID INJ 1 MG in SODIUM CHLORID 0.9%... IV SCH (10:56)
[2016-12-24] MEDS: SODIUM CHLORIDE 0.9% FLUSH 5 ML FLUSH IV FLUSH SCH ×2 (10:56→20:31)
[2016-12-24] MEDS: BUDESONIDE-FORMOTEROL 160/4.5 MCG INHALER INH SCH ×2 (10:57→20:31)
--- NOTE | 2016-12-24 17:51 | HHI.CCPN ---
Subjective Remarks/Hospital Course 61-year-old male with history of COPD here for evaluation of shortness of breath. The patient has had progressive worsening shortness of breath over the last 2 weeks with cough productive of greenish sputum. No hemoptysis. Coworkers noted that the patient did not look well today and advised that he present to the emergency department for evaluation. He denies chest pain. He does feel clammy with subjective fevers. Dyspnea is at rest, worse with exertion. O2 saturation was noted to be and 60% in triage, patient was placed on nasal cannula in the ER and given IV steroids, antibiotics and bronchodilators. ER physician felt patient needed to be admitted to the ICU under the straw hat brim cutter operator service as he might need intubation and also for risk of going into alcohol withdrawal. Patient was accepted for admission by critical care medicine service at night. I evaluated the patient this morning in the ER. At the time of my evaluation he was in the ER stretcher on nasal cannula and did not appear to be in acute distress however did have significant expiratory wheezing. 12/22 Patient is on 2L oxygen with good sats, afebrile. Objective Vital Signs Date Time Temp Pulse Resp B/P Pulse Ox O2 Delivery O2 Flow Rate FiO2 12/24/16 13:02 84 17 152/77 95 12/24/16 12:02 98.0 12/24/16 00:30 Nasal Cannula 2.00 Intake and Output 12/23/16 12/23/16 12/24/16 08:00 16:00 00:00 Intake Total 100 ml 1176 ml 860 ml Output Total 1000 ml 350 ml Balance 100 ml 176 ml 510 ml Result Diagram: 12/24/16 0540 12/24/16 0540 Other Results Laboratory Tests Test 12/24/16 05:48 Blood Gas Puncture Site RT BRACHIAL Blood Gas Patient Temperature 37.0 Blood Gas HCO3 30 mmol/L (22-26) Blood Gas Base Excess 3.7 mmol/L (-2-2) Blood Gas Oxygen Saturation 93 % (90-100) Arterial Blood pH 7.28 (7.380-7.420) Arterial Blood Partial 67 mmHg (38-42) Pressure CO2 Arterial Blood Partial 78 mmHg Pressure O2 (61-120) Arterial Blood Oxygen Content 14.1 Vol % (12.0-20.0) Arterial Blood 1.0 % (0-4) Carboxyhemoglobin Arterial Blood Methemoglobin 0.5 % (0-2) Blood Gas Hemoglobin 10.7 G/DL (12.0-16.0) Oxygen Delivery Device NASAL CANNULA Blood Gas Liter Flow 2 L/M Imaging Last Impressions Chest X-Ray 12/21/16 0000 Signed Impressions: Service Date/Time: December 05:19 - CONCLUSION: Right lower lobe consolidation and abnormal opacity in the left upper lobe suspect for a mass. Jerry Hoskins MD Objective Remarks GENERAL: Patient is 61yo lying in bed in NAD SKIN: Warm and dry. HEAD: Normocephalic. EYES: No scleral icterus. No injection or drainage. NECK: Supple, trachea midline. No JVD or lymphadenopathy. CARDIOVASCULAR: Regular rate and rhythm without murmurs, gallops, or rubs. RESPIRATORY: Breath sounds equal bilaterally. Diminished with few scattered wheezing GASTROINTESTINAL: Abdomen soft, non-tender, nondistended. MUSCULOSKELETAL: No cyanosis, or edema. Neuro: A/Ox3 A/P Assessment and Plan 61-year-old male with: Resp Insiff COPD exacerbation Suspected pneumonia History of alcohol abuse Possible hyperthyroidism hyponatremia Plan: Neuro: Monitor neuro status, avoid sedatives., on CIWA protocol. On MVI/Thiamine/Folic acid Pulm: Continue with oxygen keep sat >92% Bronchodilators, place on Symbicort, Solumederol 40mg Q8 NIPPV PRN for resp distress, pulm is following- Dr. Aparicio CV: Place on Cardizem 60mg QID, monitor HR and BP keep MAP>65mmHg Echo showed EF 55-60%, no RWMA, mod pulm HTN with PAP 64mmhg GI/liver: On Po diet Renal/: Monitor renal function, I/O's, electrolytes replacement per protocol. Will need Phos replacement today. d/c IVF ID: Empiric IV antibiotic coverage with azithromycin, cefepime. Monitor for signs of infections ( Fever, WBC) Nasal washing for Influenza negative, follow up on BC Endocrine: SSI for glycemic control as needed Heme: Monitor CBC Prophylaxis: PPI/SCDs/subcutaneous Lovenox Clinicaly improved, CCM no more need to follow Level 3 Toby Nicole MD Dec 24, 2016 17:51
[2016-12-24] MEDS: ACETAMINOPHEN/HYDROcodone 325 MG/10 MG TAB PO PRN ×2 (18:11→23:12)
[2016-12-24] MEDS: AZITHROMYCIN INJ 500 MG in SODIUM CHLOR 0.9% 250 ML INJ 250 ML IV SCH (20:30)
[2016-12-24] MEDS: TEMAZEPAM 15 MG CAP PO SCH (21:31)
[2016-12-25] VITALS (22 sets, daily range): BP systolic 108–176; BP diastolic 65–95; PULSE 68–115; RESP 14–28; TEMP 97.6–98.2; O2SAT 92–100
[2016-12-25] MEDS: CEFEPIME INJ 2,000 MG in SODIUM CHLORIDE 0.9% INJ 100 ML IV SCH ×2 (01:30→08:44)
[2016-12-25] MEDS: CHLORHEXIDINE GLUCONATE 2 % 1 PACK (2 CLOTHS) TOP SCH (01:32)
[2016-12-25] MEDS: RESP: ALBUTEROL 2.5 MG/IPRATROPIUM 0.5 MG NEB (PRN) INH ×4 (04:00→16:18)
[2016-12-25 05:08] LABS: CHLORIDE 104 MEQ/L (98-107); POTASSIUM 3.8 MEQ/L (3.5-5.1); SODIUM (NA) 142 MEQ/L (136-145)
[2016-12-25 05:12] LABS: ANION GAP 5 MEQ/L (5-15); BICARBONATE 33.1 MEQ/L (21.0-32.0); BLOOD UREA NITROGEN 19 MG/DL (7-18)
[2016-12-25 05:15] LABS: ALT (GPT) 33 U/L (12-78); AST (GOT) 14 U/L (15-37); GLOMERULAR FILTRATION RATE 176 ML/MIN (>89)
[2016-12-25 05:17] LABS: TOTAL BILIRUBIN ADULT 0.4 MG/DL (0.2-1.0)
[2016-12-25 05:18] LABS: ALKALINE PHOSPHATASE 71 U/L (45-117)
[2016-12-25 05:22] LABS: AUTOMATED NEUTROPHIL # 2.6 TH/MM3 (1.8-7.7); BASOPHIL % 0.1 % (0.0-2.0); EOSINOPHIL % 0.1 % (0.0-4.0); HEMATOCRIT 33.4 % (39.0-51.0); LYMPH % 7.6 % (9.0-44.0); LYMPHOCYTE # 0.2 TH/MM3 (1.0-4.8); MEAN CELL VOLUME 101.3 FL (80.0-100.0); MEAN CORPUSCULAR HEMOGLOBIN 33.2 PG (27.0-34.0); MEAN CORPUSCULAR HGB CONC 32.7 % (32.0-36.0); MONO % 5.7 % (0.0-8.0); NEUT % 86.5 % (16.0-70.0); PLATELET COUNT 175 TH/MM3 (150-450); RED CELL DISTRIBUTION WIDTH 13.1 % (11.6-17.2); WHITE BLOOD COUNT 3.1 TH/MM3 (4.0-11.0)
[2016-12-25 05:30] LABS: HEMO FLAGS DIFF FINAL
[2016-12-25] MEDS: methylPREDNISolone SOD SUCC 40 MG/1 ML VIAL IV PUSH SCH ×2 (05:47→14:09)
[2016-12-25] MEDS: INSULIN NovoLIN REGULAR SUPPLEMENTAL SCALE SQ SCH ×4 (05:48→21:00)
[2016-12-25] MEDS: BUDESONIDE-FORMOTEROL 160/4.5 MCG INHALER INH SCH ×2 (08:43→21:09)
[2016-12-25] MEDS: DILTIAZEM HCL 60 MG TAB PO SCH ×4 (08:44→21:12)
[2016-12-25] MEDS: FERROUS SULFATE 325 MG (65 MG ELEMENTAL IRON) TAB PO SCH (08:44)
[2016-12-25] MEDS: DOCUSATE SODIUM 100 MG CAP PO SCH ×2 (08:44→21:11)
[2016-12-25] MEDS: VITAMIN B COMPLEX/VIT C TAB PO SCH (08:44)
[2016-12-25] MEDS: SODIUM CHLORIDE 0.9% FLUSH 5 ML FLUSH IV FLUSH SCH ×2 (08:44→21:10)
[2016-12-25] MEDS: HEPARIN SODIUM - SQ 10,000 UNITS/ML VIAL SQ SCH ×2 (08:44→21:13)
[2016-12-25] MEDS: REMOVE OLD PATCH T-DERMAL SCH (09:00)
[2016-12-25] MEDS: NICOTINE 21 MG/24 HR PATCH T-DERMAL SCH (09:12)
[2016-12-25] MEDS: MULTIVITAMIN TAB PO SCH (09:13)
[2016-12-25] MEDS: PANTOPRAZOLE SOD 20 MG DELAYED RELEASE TAB PO SCH (09:13)
[2016-12-25] MEDS: MULTIVITAMIN INJ 10 ML, THIAMINE INJ 100 MG, FOLIC ACID INJ 1 MG in SODIUM CHLORID 0.9%... IV SCH (12:31)
[2016-12-25] MEDS ORDERED: OXYGENTANK NAS.CANULA (15:06)
--- NOTE | 2016-12-25 16:19 | HHI.PR ---
Subjective Remarks Patient denies dyspnea. He got up with physical therapy today and ambulated. Nurse notes that he still has significant wheezing. A shunt denies any alcohol withdrawal symptoms. Patient endorses that he plans to quit smoking tobacco. Objective Vitals Vital Signs Date Time Temp Pulse Resp B/P Pulse Ox O2 Delivery O2 Flow Rate FiO2 12/25/16 14:00 88 23 158/83 96 12/25/16 14:00 88 12/25/16 13:00 92 23 157/84 95 12/25/16 13:00 92 12/25/16 12:00 98.0 90 15 135/67 95 12/25/16 12:00 90 12/25/16 11:00 90 20 153/84 95 12/25/16 10:00 94 27 153/86 92 12/25/16 10:00 94 12/25/16 09:00 84 16 166/95 92 12/25/16 09:00 84 12/25/16 08:32 2.00 12/25/16 08:06 98 Nasal Cannula 2.00 12/25/16 08:00 84 28 150/82 98 12/25/16 08:00 84 12/25/16 07:00 97.6 80 18 150/86 97 12/25/16 06:00 76 16 149/83 97 12/25/16 05:00 76 16 144/81 98 12/25/16 04:00 98.0 70 16 126/72 92 12/25/16 04:00 70 12/25/16 03:00 74 21 138/69 94 12/25/16 02:00 68 12/25/16 02:00 68 15 108/65 100 12/25/16 01:00 70 17 120/75 95 12/25/16 00:00 98.2 74 17 133/77 96 12/25/16 00:00 74 12/24/16 23:18 78 22 136/83 95 12/24/16 22:03 80 25 124/75 94 12/24/16 21:02 90 21 150/88 96 12/24/16 20:02 98.7 86 16 158/87 97 12/24/16 20:00 88 12/24/16 20:00 88 12/24/16 19:24 95 Nasal Cannula 2.00 12/24/16 19:02 88 14 149/73 97 12/24/16 18:02 92 19 158/88 95 12/24/16 17:02 92 21 163/101 92 12/24/16 16:25 78 I/O 12/24/16 12/24/16 12/24/16 12/25/16 12/25/16 12/25/16 07:00 15:00 23:00 07:00 15:00 23:00 Intake Total 250 ml 1170 ml 670 ml 190 ml 905 ml Output Total 450 ml 1050 ml 200 ml 725 ml 550 ml Balance -200 ml 120 ml 470 ml -535 ml 355 ml Intake Oral 100 ml 600 ml 320 ml 60 ml 480 ml IV Total 150 ml 570 ml 350 ml 130 ml 425 ml Output Urine Total 450 ml 1050 ml 200 ml 725 ml 550 ml Stool Total 0 ml # Voids 2 1 0 # Bowel Movements 0 0 0 0 Result Diagram: 12/25/1643112/25/16431 Objective Remarks GENERAL: Well-nourished, well-developed pleasant lean male patient. SKIN: Warm and dry. HEAD: Normocephalic. EYES: No scleral icterus. No injection or drainage. NECK: Supple, trachea midline. No JVD or lymphadenopathy. CARDIOVASCULAR: Regular rate and rhythm without murmurs, gallops, or rubs. RESPIRATORY: Prolonged breath sounds bilaterally with expiratory wheezing. Breath sounds equal bilaterally. No accessory muscle use. GASTROINTESTINAL: Abdomen soft, non-tender, nondistended. EXTREMITIES: No cyanosis, or edema. NEUROLOGICAL: Awake, alert, and oriented x 3. Non-focal. A/P Assessment and Plan -Acute hypoxic and hypercapnic respiratory failure secondary to COPD exacerbation - improving. Continue oxygen via nasal cannula, Solu-Medrol IV, DuoNeb's. Appreciate pulmonology following the patient. Patient will require home oxygen as per walk test today. Tobacco cessation has been encouraged with the patient. I will start him on Spiriva as well. -Severe hyponatremia, resolved. Was likely secondary to alcohol. -Right lung pneumonia. Appears mild on CT. Receive 3 days of cefepime and Zithromax. Will transition to Levaquin. -Hypertension. The patient is on Cardizem by mouth. I will change this to CD version tomorrow morning. -Possible hyperthyroidism - f/u at [facility]. -DVT px - lovenox SQ. [place],Elly Melva MD Dec 25, 2016 16:19
[2016-12-25] MEDS ORDERED: RESP: ALBUTEROL 2.5 MG/IPRATROPIUM 0.5 MG NEB (PRN) NEB (16:30)
--- NOTE | 2016-12-25 16:46 | HHI.PR ---
Subjective Remarks 61 YOWM with COPD, Pn, Nicotine use Breathing better On [place] CT chest hyperinflation, patchy lung infilt No Fever desaturates easily Objective Vital Signs Vital Signs Date Time Temp Pulse Resp B/P Pulse Ox O2 Delivery O2 Flow Rate FiO2 12/25/16 14:00 88 23 158/83 96 12/25/16 14:00 88 12/25/16 13:00 92 23 157/84 95 12/25/16 13:00 92 12/25/16 12:00 98.0 90 15 135/67 95 12/25/16 12:00 90 12/25/16 11:00 90 20 153/84 95 12/25/16 10:00 94 27 153/86 92 12/25/16 10:00 94 12/25/16 09:00 84 16 166/95 92 12/25/16 09:00 84 12/25/16 08:32 2.00 12/25/16 08:06 98 Nasal Cannula 2.00 12/25/16 08:00 84 28 150/82 98 12/25/16 08:00 84 12/25/16 07:00 97.6 80 18 150/86 97 12/25/16 06:00 76 16 149/83 97 12/25/16 05:00 76 16 144/81 98 12/25/16 04:00 98.0 70 16 126/72 92 12/25/16 04:00 70 12/25/16 03:00 74 21 138/69 94 12/25/16 02:00 68 12/25/16 02:00 68 15 108/65 100 12/25/16 01:00 70 17 120/75 95 12/25/16 00:00 98.2 74 17 133/77 96 12/25/16 00:00 74 12/24/16 23:18 78 22 136/83 95 12/24/16 22:03 80 25 124/75 94 12/24/16 21:02 90 21 150/88 96 12/24/16 20:02 98.7 86 16 158/87 97 12/24/16 20:00 88 12/24/16 20:00 88 12/24/16 19:24 95 Nasal Cannula 2.00 12/24/16 19:02 88 14 149/73 97 12/24/16 18:02 92 19 158/88 95 12/24/16 17:02 92 21 163/101 92 I/O 12/24/16 12/24/16 12/24/16 12/25/16 12/25/16 12/25/16 07:00 15:00 23:00 07:00 15:00 23:00 Intake Total 250 ml 1170 ml 670 ml 190 ml 905 ml Output Total 450 ml 1050 ml 200 ml 725 ml 550 ml Balance -200 ml 120 ml 470 ml -535 ml 355 ml Intake Oral 100 ml 600 ml 320 ml 60 ml 480 ml IV Total 150 ml 570 ml 350 ml 130 ml 425 ml Output Urine Total 450 ml 1050 ml 200 ml 725 ml 550 ml Stool Total 0 ml # Voids 2 1 0 # Bowel Movements 0 0 0 0 Result Diagram: 12/25/1643112/25/16431 Objective Remarks GENERAL: MBMN WM, mild sob SKIN: Warm and dry. HEAD: Normocephalic. EYES: No scleral icterus. No injection or drainage. NECK: Supple, trachea midline. No JVD or lymphadenopathy. CARDIOVASCULAR: Regular rate and rhythm without murmurs, gallops, or rubs. RESPIRATORY: Breath sounds equal bilaterally. No accessory muscle use. Exp rhonchi GASTROINTESTINAL: Abdomen soft, non-tender, nondistended. MUSCULOSKELETAL: No cyanosis, or edema. BACK: Nontender without obvious deformity. No CVA tenderness. A/P Assessment and Plan COPD exac Pneumonia Nicotine use ETOH Use Weight loss PLAN: Solumedrol 60 mg q 6 hrs Cont Abx Wean 02 Check cultures Smoking cessation Will need home 02 Morgan Aparicio MD Dec 25, 2016 16:46
[2016-12-25] MEDS ORDERED: NEBULIZER1 MI1 (17:04)
[2016-12-25] MEDS: methylPREDNISolone SOD SUCC 125 MG/2 ML VIAL IV PUSH SCH (18:20)
[2016-12-25] MEDS: ACETAMINOPHEN/HYDROcodone 325 MG/10 MG TAB PO PRN (19:22)
[2016-12-25] MEDS: RESP: ALBUTEROL 2.5 MG/IPRATROPIUM 0.5 MG NEB (SCH) NEB (19:35)
--- NOTE | 2016-12-25 20:38 | HHI.PR ---
Subjective Remarks 61 YOWM with COPD, Pn, Nicotine use Breathing better On [place] CT chest hyperinflation, patchy lung infilt No Fever desaturates easily Did't tolerate walking Objective Vital Signs Vital Signs Date Time Temp Pulse Resp B/P Pulse Ox O2 Delivery O2 Flow Rate FiO2 12/25/16 18:00 90 12/25/16 18:00 90 14 160/84 97 12/25/16 17:00 94 12/25/16 16:00 88 12/25/16 16:00 98.1 88 25 163/83 97 12/25/16 14:00 88 23 158/83 96 12/25/16 14:00 88 12/25/16 13:00 92 23 157/84 95 12/25/16 13:00 92 12/25/16 12:00 98.0 90 15 135/67 95 12/25/16 12:00 90 12/25/16 11:00 90 20 153/84 95 12/25/16 10:00 94 27 153/86 92 12/25/16 10:00 94 12/25/16 09:00 84 16 166/95 92 12/25/16 09:00 84 12/25/16 08:32 2.00 12/25/16 08:06 98 Nasal Cannula 2.00 12/25/16 08:00 84 28 150/82 98 12/25/16 08:00 84 12/25/16 07:00 97.6 80 18 150/86 97 12/25/16 06:00 76 16 149/83 97 12/25/16 05:00 76 16 144/81 98 12/25/16 04:00 98.0 70 16 126/72 92 12/25/16 04:00 70 12/25/16 03:00 74 21 138/69 94 12/25/16 02:00 68 12/25/16 02:00 68 15 108/65 100 12/25/16 01:00 70 17 120/75 95 12/25/16 00:00 98.2 74 17 133/77 96 12/25/16 00:00 74 12/24/16 23:18 78 22 136/83 95 12/24/16 22:03 80 25 124/75 94 12/24/16 21:02 90 21 150/88 96 I/O 2/12/17 2/12/12/24/16 12/25/16 12/25/16 12/25/16 07:00 15:00 23:00 07:00 15:00 23:00 Intake Total 250 ml 1170 ml 670 ml 190 ml 905 ml Output Total 450 ml 1050 ml 200 ml 725 ml 550 ml 450 ml Balance -200 ml 120 ml 470 ml -535 ml 355 ml -450 ml Intake Oral 100 ml 600 ml 320 ml 60 ml 480 ml IV Total 150 ml 570 ml 350 ml 130 ml 425 ml Output Urine Total 450 ml 1050 ml 200 ml 725 ml 550 ml 450 ml Stool Total 0 ml # Voids 2 1 0 # Bowel Movements 0 0 0 0 Result Diagram: 12/25/1643112/25/16431 Objective Remarks GENERAL: MBMN WM, mild sob SKIN: Warm and dry. HEAD: Normocephalic. EYES: No scleral icterus. No injection or drainage. NECK: Supple, trachea midline. No JVD or lymphadenopathy. CARDIOVASCULAR: Regular rate and rhythm without murmurs, gallops, or rubs. RESPIRATORY: Breath sounds equal bilaterally. No accessory muscle use. Exp rhonchi GASTROINTESTINAL: Abdomen soft, non-tender, nondistended. MUSCULOSKELETAL: No cyanosis, or edema. BACK: Nontender without obvious deformity. No CVA tenderness. A/P Assessment and Plan COPD exac Pneumonia Nicotine use ETOH Use Weight loss PLAN: Solumedrol 60 mg q 6 hrs Cont Abx Wean 02 Check cultures Smoking cessation Will need home 02 Morgan Aparicio MD Dec 25, 2016 20:38
[2016-12-25] MEDS: TEMAZEPAM 15 MG CAP PO SCH (21:10)
[2016-12-26] VITALS: BP 157/96; PULSE 80; RESP 20; TEMP 96.9; O2SAT 94
[2016-12-26] MEDS: SODIUM CHLORIDE 0.9% FLUSH 5 ML FLUSH IV FLUSH PRN ×2 (00:23→06:30)
[2016-12-26] MEDS: methylPREDNISolone SOD SUCC 125 MG/2 ML VIAL IV PUSH SCH ×3 (00:23→12:17)
[2016-12-26 04:00] VITALS: BP 146/75; PULSE 83; RESP 20; TEMP 96.9; O2SAT 94
[2016-12-26] MEDS: CHLORHEXIDINE GLUCONATE 2 % 1 PACK (2 CLOTHS) TOP SCH (04:00)
[2016-12-26] MEDS: ACETAMINOPHEN/HYDROcodone 325 MG/10 MG TAB PO PRN ×2 (06:34→12:17)
[2016-12-26] MEDS: INSULIN NovoLIN REGULAR SUPPLEMENTAL SCALE SQ SCH ×2 (06:38→11:00)
[2016-12-26 07:30] VITALS: O2SAT 97
[2016-12-26] MEDS: RESP: ALBUTEROL 2.5 MG/IPRATROPIUM 0.5 MG NEB (SCH) NEB ×3 (07:31→15:29)
[2016-12-26 08:20] VITALS: BP 171/105; PULSE 83; RESP 18; TEMP 96.4; O2SAT 95
[2016-12-26] MEDS: SODIUM CHLORIDE 0.9% FLUSH 5 ML FLUSH IV FLUSH SCH (08:54)
[2016-12-26] MEDS: BUDESONIDE-FORMOTEROL 160/4.5 MCG INHALER INH SCH (08:54)
[2016-12-26] MEDS: VITAMIN B COMPLEX/VIT C TAB PO SCH (08:55)
[2016-12-26] MEDS: MULTIVITAMIN TAB PO SCH (08:55)
[2016-12-26] MEDS: PANTOPRAZOLE SOD 20 MG DELAYED RELEASE TAB PO SCH (08:55)
[2016-12-26] MEDS: DOCUSATE SODIUM 100 MG CAP PO SCH (08:56)
[2016-12-26] MEDS: REMOVE OLD PATCH T-DERMAL SCH (08:56)
[2016-12-26] MEDS: FERROUS SULFATE 325 MG (65 MG ELEMENTAL IRON) TAB PO SCH (08:56)
[2016-12-26] MEDS: NICOTINE 21 MG/24 HR PATCH T-DERMAL SCH (08:56)
[2016-12-26] MEDS: HEPARIN SODIUM - SQ 10,000 UNITS/ML VIAL SQ SCH (08:57)
[2016-12-26] MEDS ORDERED: DILTIAZEM-CD 240 MG CAP ER PO SCH (09:00)
[2016-12-26] MEDS ORDERED: LEVOFLOXACIN 750 MG TAB PO SCH (09:00)
[2016-12-26] MEDS: LABETALOL HCL 100 MG/20 ML VIAL IV PRN (12:18)
[2016-12-26 12:20] VITALS: BP 175/101; PULSE 93; RESP 18; TEMP 97; O2SAT 94
[2016-12-26 13:25] VITALS: BP 186/109
[2016-12-26] MEDS ORDERED: cloNIDine HCL 0.1 MG TAB PO PRN (13:30)
[2016-12-26] MEDS ORDERED: LISINOPRIL 10 MG TAB PO SCH (13:30)
[2016-12-26] MEDS ORDERED: IPRASOL NEB (14:15)
[2016-12-26] MEDS ORDERED: PRED10PA2 PO (14:15)
[2016-12-26] MEDS ORDERED: CARD240C6 PO (14:15)
[2016-12-26] MEDS ORDERED: LISI10TA3 PO (14:15)
[2016-12-26] MEDS ORDERED: SPIRCAP INH (14:15)
[2016-12-26] MEDS ORDERED: LEVA750T PO (14:15)
--- NOTE | 2016-12-26 14:20 | HHI.DS ---
Discharge Summary Admission Date Dec 20, 2016 at 21:22 Discharge Date: Dec 26, 2016 Admitting Diagnosis sepsis, pneumonia, hyponatremia, hyperkalemia (1) Pneumonia ICD Code: J18.9 (2) COPD exacerbation ICD Code: J44.1 (3) Respiratory failure ICD Code: J96.90 (4) Hyponatremia ICD Code: E87.1 (5) Tobacco abuse ICD Code: Z72.0 (6) Alcohol abuse ICD Code: F10.10 Procedures None Brief History - From Admission 61-year-old male with history of COPD who presented to the ER for evaluation of shortness of breath. He had had progressive worsening shortness of breath over the last 2 weeks with cough productive of greenish sputum. No hemoptysis. Coworkers noted that the patient did not look well today and advised that he present to the emergency department for evaluation. O2 saturation was noted to be 60% in triage, patient was placed on nasal cannula in the ER and given IV steroids, antibiotics and bronchodilators. ER physician felt patient needed to be admitted to the ICU under the lime trimmer service as he might need intubation and also for risk of going into alcohol withdrawal. ABG showed acute respiratory acidosis. CBC/BMP: 12/25/16 0432 12/25/16 0432 Significant Findings Laboratory Tests Test 12/24/16 12/24/16 12/25/16 05:40 05:48 04:32 White Blood Count 2.5 TH/MM3 3.1 TH/MM3 (4.0-11.0) (4.0-11.0) Red Blood Count 3.21 MIL/MM3 3.30 MIL/MM3 (4.50-5.90) (4.50-5.90) Hemoglobin 10.8 GM/DL 10.9 GM/DL (13.0-17.0) (13.0-17.0) Hematocrit 33.1 % 33.4 % (39.0-51.0) (39.0-51.0) Mean Corpuscular Volume 103.1 FL 101.3 FL (80.0-100.0) (80.0-100.0) Platelet Count 147 TH/MM3 (150-450) Neutrophils (%) (Auto) 82.0 % 86.5 % (16.0-70.0) (16.0-70.0) Monocytes (%) (Auto) 8.5 % (0.0-8.0) Lymphocytes # (Auto) 0.2 TH/MM3 0.2 TH/MM3 (1.0-4.8) (1.0-4.8) Blood Urea Nitrogen 19 MG/DL (7-18) 19 MG/DL (7-18) Creatinine 0.59 MG/DL 0.48 MG/DL (0.60-1.30) (0.60-1.30) Random Glucose 137 MG/DL 127 MG/DL (74-106) (74-106) Calcium Level 7.7 MG/DL 8.0 MG/DL (8.5-10.1) (8.5-10.1) Blood Gas HCO3 30 mmol/L (22-26) Blood Gas Base Excess 3.7 mmol/L (-2-2) Arterial Blood pH 7.28 (7.380-7.420) Arterial Blood Partial 67 mmHg (38-42) Pressure CO2 Blood Gas Hemoglobin 10.7 G/DL (12.0-16.0) Lymphocytes (%) (Auto) 7.6 % (9.0-44.0) Carbon Dioxide Level 33.1 MEQ/L (21.0-32.0) Aspartate Amino Transf 14 U/L (15-37) (AST/SGOT) Total Protein 5.3 GM/DL (6.4-8.2) Albumin 2.4 GM/DL (3.4-5.0) Imaging Last Impressions Chest X-Ray 12/24/16599 Signed Impressions: Service Date/Time: Saturday, December 24, 2016 06:12 - CONCLUSION: Developing right pleural effusion. No significant change bibasilar and left perihilar consolidation. Ed Ramos MD Chest CT 12/22/16599 Signed Impressions: Service Date/Time: Thursday, December 22, 2016 08:17 - CONCLUSION: Hyperinflation with patchy air space disease. Peribronchial thickening is present in both lungs with interstitial alveolar opacity in the right lung suspicious for an inflammatory process. Broderick Mcarthur MD FACR PE at Discharge GENERAL: Well-nourished, well-developed pleasant lean male patient. SKIN: Warm and dry. HEAD: Normocephalic. EYES: No scleral icterus. No injection or drainage. NECK: Supple, trachea midline. No JVD or lymphadenopathy. CARDIOVASCULAR: Regular rate and rhythm without murmurs, gallops, or rubs. RESPIRATORY: Improved air exchange with no wheezing today. No accessory muscle use. GASTROINTESTINAL: Abdomen soft, non-tender, nondistended. EXTREMITIES: No cyanosis, or edema. NEUROLOGICAL: Awake, alert, and oriented x 3. Non-focal. Hospital Course The patient was admitted to the ICU. He did not require intubation or BiPAP. He did improve with high-dose IV steroids and bronchodilators and oxygen. His hyponatremia resolved with IV fluids. He was placed on the [facility] protocol for alcohol withdrawal which was mild. Pulmonology was consulted. Chest CT did show hyperinflation as well as a right lung alveolar opacity in the interstitium suspicious for inflammatory process. He was treated with antibiotics for this. He did improve. He does require home oxygen. He has high blood pressure and was started on Cardizem and lisinopril. The patient has improved today with no wheezing on exam. He would like to go home today as his is ill. He agrees to follow-up at the [facility] clinic tomorrow. Pt Condition on Discharge: Stable Discharge Disposition: Discharge Home Discharge Time: > 30 minutes Discharge Instructions DIET: Follow Instructions for: As Tolerated, No Restrictions Activities you can perform: Regular-No Restrictions Follow up Referrals: PCP Follow-up - Next Day New Medications: Oxygen tank (Oxygen tank) 1 Ea Tank 2 LITER NASIR.CANULA CONTINUOUS Oxygen Concentrator Portable Gaseous 2 L/min via Nasal Cannula Continuous For 99 months HYPOXEMIA PREVENTION #2 CYLINDER Prednisone (48) 10 mg tab Dose Pack (Prednisone (48) 10 mg tab Dose Pack) 10 Mg Dspk 10 MG PO DIRECTED Take 3 tabs by mouth twice a day 3 days then 2 tabs twice a day 3 days then 1 tab twice a day 3 days then stop. Inflammation #33 Ref 0 TAB Tiotropium Inh (Spiriva Handihaler) 18 Mcg Cap 18 MCG INH DAILY 1 capsule = 18 mcg COPD #30 Ref 0 CAP Diltiazem CD 24 HR (Cardizem CD 24 HR) 240 Mg Caper 240 MG PO DAILY Blood Pressure Management #30 CAP Ipratropium-Albuterol Neb (Duoneb) 0.5-2.5 Mg/3 Ml Neb 1 AMPULE NEB Q4HR WHILE AWAKE NEB Dyspnea #120 ML Levofloxacin (Levaquin) 750 Mg Tab 750 MG PO DAILY Infection #3 TAB Lisinopril (Lisinopril) 10 Mg Tab 10 MG PO DAILY Blood Pressure Management #30 TAB Continued Medications: B-Complex Vitamins (Vitamin B-Complex) 1 Tab 1 TAB PO DAILY Ferrous Sulfate (Ferrous Sulfate) 325 Mg Tab 325 MG PO DAILY Nutritional Supplement #30 Ref 0 TAB Hydrocodone-Acetaminophen (K[place]) 10-325 Mg Tab 1 TAB PO Q6H PRN PAIN Ref 0 TAB Multiple Vitamin (Multiple Vitamin) 1 Tab 1 TAB PO DAILY Nutritional Supplement Ref 0 TAB Nicotine Patch (Nicotine Patch) 21 Mg/24 Hr Patch 21 MG T-DERMAL DAILY Smoking Cessation #30 Ref 0 PATCH Omeprazole (Omeprazole) 20 Mg Tab 20 MG PO DAILY #30 Ref 0 TAB Temazepam (Temazepam) 30 Mg Cap 30 MG PO HS INSOMNIA #30 Ref 0 CAP Discontinued Medications: Albuterol Neb (Albuterol Neb) 2.5 Mg/0.5 Ml Neb 2.5 MG NEB QID NEB Note: The Albuterol Sulfate Inhalation Solution is concentrated and must be diluted. Read complete instructions carefully before using. PRN SOB/WHEEZING #120 Ref 0 NEBULE Ipratropium-Albuterol Inh (Combivent Respimat Inh) 20-100 Chcf/Act Aero 1 PUFF INH QID Asthma Management #1 Ref 0 INHALER Elly Callahan MD Dec 26, 2016 14:20 GENERAL: Well-nourished, well-developed pleasant lean male patient. SKIN: Warm and dry. HEAD: Normocephalic. EYES: No scleral icterus. No injection or drainage. NECK: Supple, trachea midline. No JVD or lymphadenopathy. CARDIOVASCULAR: Regular rate and rhythm without murmurs, gallops, or rubs. RESPIRATORY: Prolonged breath sounds bilaterally with expiratory wheezing. Breath sounds equal bilaterally. No accessory muscle use. GASTROINTESTINAL: Abdomen soft, non-tender, nondistended. EXTREMITIES: No cyanosis, or edema. NEUROLOGICAL: Awake, alert, and oriented x 3. Non-focal. Pt Condition on Discharge: Stable Discharge Disposition: Discharge Home Discharge Time: > 30 minutes Discharge Instructions DIET: Follow Instructions for: As Tolerated, No Restrictions Activities you can perform: Regular-No Restrictions Follow up Referrals: PCP Follow-up - Next Day New Medications: Oxygen tank (Oxygen tank) 1 Ea Tank 2 LITER NASIR.CANULA CONTINUOUS Oxygen Concentrator Portable Gaseous 2 L/min via Nasal Cannula Continuous For 99 months HYPOXEMIA PREVENTION #2 CYLINDER Prednisone (48) 10 mg tab Dose Pack (Prednisone (48) 10 mg tab Dose Pack) 10 Mg Dspk 10 MG PO DIRECTED Take 3 tabs by mouth twice a day 3 days then 2 tabs twice a day 3 days then 1 tab twice a day 3 days then stop. Inflammation #33 Ref 0 TAB Tiotropium Inh (Spiriva Handihaler) 18 Mcg Cap 18 MCG INH DAILY 1 capsule = 18 mcg COPD #30 Ref 0 CAP Diltiazem CD 24 HR (Cardizem CD 24 HR) 240 Mg Caper 240 MG PO DAILY Blood Pressure Management #30 CAP Ipratropium-Albuterol Neb (Duoneb) 0.5-2.5 Mg/3 Ml Neb 1 AMPULE NEB Q4HR WHILE AWAKE NEB Dyspnea #120 ML Levofloxacin (Levaquin) 750 Mg Tab 750 MG PO DAILY Infection #3 TAB Lisinopril (Lisinopril) 10 Mg Tab 10 MG PO DAILY Blood Pressure Management #30 TAB Continued Medications: B-Complex Vitamins (Vitamin B-Complex) 1 Tab 1 TAB PO DAILY Ferrous Sulfate (Ferrous Sulfate) 325 Mg Tab 325 MG PO DAILY Nutritional Supplement #30 Ref 0 TAB Hydrocodone-Acetaminophen (K[place]) 10-325 Mg Tab 1 TAB PO Q6H PRN PAIN Ref 0 TAB Multiple Vitamin (Multiple Vitamin) 1 Tab 1 TAB PO DAILY Nutritional Supplement Ref 0 TAB Nicotine Patch (Nicotine Patch) 21 Mg/24 Hr Patch 21 MG T-DERMAL DAILY Smoking Cessation #30 Ref 0 PATCH Omeprazole (Omeprazole) 20 Mg Tab 20 MG PO DAILY #30 Ref 0 TAB Temazepam (Temazepam) 30 Mg Cap 30 MG PO HS INSOMNIA #30 Ref 0 CAP Discontinued Medications: Albuterol Neb (Albuterol Neb) 2.5 Mg/0.5 Ml Neb 2.5 MG NEB QID NEB Note: The Albuterol Sulfate Inhalation Solution is concentrated and must be diluted. Read complete instructions carefully before using. PRN SOB/WHEEZING #120 Ref 0 NEBULE Ipratropium-Albuterol Inh (Combivent Respimat Inh) 20-100 Chcf/Act Aero 1 PUFF INH QID Asthma Management #1 Ref 0 INHALER Elly Callahan MD Dec 26, 2016 14:20
--- NOTE | 2017-01-04 11:48 | PQ ---
Physician Query Response Document PATIENT: SOHA LOPEZ : 1955 ADMIT DATE: 12/20/2016 9:22 PM DISCH DATE: 12/26/2016 4:13 PM RESPONDING PROVIDER #: [email or web address] QUERY TEXT: Sepsis Query Based on your medical judgement, can you further clarify the folowiing: Depending on your selection above, please indicate one of the below if applicable: - Sepsis was present on Admission - Sepsis developed after admission - Sepsis was NOT present on Admission -Unable to determine - please explain The patient's Clinical Indicators include: TX pneumonia azithromycin, cefepime. lactic acid 2.2 / bands 12/ HEART rate 105 progressive worsening shortness of breath over the last 2 weeks with cough clammy with subjective fev ers O2 saturation was noted to be and 60% in triage, CT chest peribronchial thickening is present in both lungs with interstitial alveolar opacity in righ t lung suspicious for an inflammatory process. given IV steroids, antibiotics and bronchodilators Query created by: Helen Johnson on 01/01/2017 3:20 PM RESPONSE TEXT: Provider disagreed with this CDI query. Electronically signed by: Elly Callahan MD 01/04/2017 11:44 AM
== END 2016-12-26 16:13 | disposition home or self-care (01) | DRG 193 ==
LOC: PHED 19:02 → PHEDA 21:22 → PHEDH 12-21 01:22 → PHICU 12-21 08:50 → PH3A 12-25 19:55
PROVIDERS: ADMIT Family Medicine; ATTEND Family Medicine
PROC: 3E0F7GC Introduction of Other Therapeutic Substance into Respiratory Tract, Via Natural or Artificial Opening (ICD-10-PCS; principal; 2016-12-20)
DX: J18.9 Pneumonia, unspecified organism (principal); J96.01 Acute respiratory failure with hypoxia; J96.02 Acute respiratory failure with hypercapnia; E87.1 Hypo-osmolality and hyponatremia; J44.1 Chronic obstructive pulmonary disease with (acute) exacerbation; E87.2 Acidosis; F10.239 Alcohol dependence with withdrawal, unspecified; I27.2 Other secondary pulmonary hypertension; I10 Essential (primary) hypertension; E87.5 Hyperkalemia; F17.210 Nicotine dependence, cigarettes, uncomplicated; R63.4 Abnormal weight loss; R91.8 Other nonspecific abnormal finding of lung field
CPT/HCPCS: 36600; 71010; 71250; 76937; 80048; 80053; 82533; 82550; 82805; 82948; 83605; 83735; 83880; 83930; 83935; 84100; 84300; 84439; 84443; 84481; 84484; 84550; 85007; 85025; 85027; 85610; 85730; 87040; 87641; 87804; 93005; 93306; 94150; 94620; 94640; 94664; 94667; 94668; 96365; 96375; J0456; J0692; J0696; J1644; J2405; J2920; J2930; J3411; J7030; J7040; J7050

== ENCOUNTER 2017-10-13 06:18 | Inpatient (IN) | payer OTHER ==
[2017-10-13] VITALS (32 sets, daily range): BP systolic 79–149; BP diastolic 56–104; PULSE 73–130; RESP 15–97; TEMP 98–99.2; O2SAT 98–100
[~2017-10-13] VITALS: Ht 177.8 cm; Wt 51.9 kg
[~2017-10-13 06:18] MED LIST changes: +B-COTAB41 PO; +CARD240C6 PO; -CHLO10 PO; -DUONI NEB; -FERR324T4 PO; +FERR325T PO; -FORM12I INH; +HYDR-3366 PO; -IPRAAER IN; +IPRASOL NEB; +LEVA750T PO; +LISI10TA3 PO; +MULTTAB67 PO; +NICO21DI2 T-DERMAL; -NICO21T TD; -OMEP20TA39 PO; +OMEP20TA93 PO; -OXYC5 PO; +OXYGENTANK NAS.CANULA; +PRED10PA2 PO; +SPIRCAP INH; -TEMA15CA PO; +TEMA30CA PO; -THIA100T PO; -ZOLP1TAB32 PO
[2017-10-13] MEDS ORDERED: PROPOFOL 1000 MG/100 ML INJ 100 ML ONE (06:22)
[2017-10-13] MEDS ORDERED: AZITHROMYCIN INJ 500 MG in SODIUM CHLOR 0.9% 250 ML INJ 250 ML IV STA (06:23)
[2017-10-13] MEDS ORDERED: CEFEPIME INJ 2,000 MG in SODIUM CHLORIDE 0.9% INJ 100 ML IV STA (06:23)
[2017-10-13] MEDS ORDERED: methylPREDNISolone SOD SUCC 125 MG/2 ML VIAL IV PUSH ONE (06:30)
[2017-10-13] MEDS ORDERED: MIDAZOLAM HCL 2 MG/2 ML VIAL IV PUSH ONE (06:30)
[2017-10-13] MEDS: PROPOFOL 1000 MG/100 ML INJ 100 ML IV PRN ×3 (06:30→20:21)
[2017-10-13] MEDS ORDERED: SODIUM CHLORID 0.9% 500 ML INJ 500 ML IV ONE (06:30)
--- NOTE | 2017-10-13 06:43 | PD ---
HPI Chief Complaint: respiratory issue Time Seen by Provider: 06:23 Travel History International Travel<30 days: No Contact w/Intl Traveler<30days: No History of Present Illness HPI 62-year-old male presents by ambulance. He was found prone with pulse ox in the 60s on room air when the ambulance team arrived. Report was [facility] Patient was given Ativan and etomidate and on second attempt EMS and intubated the patient. Here patient is moving and intubated and cannot provide any history, end tidal was in the 70s with the ambulance team [facility] Past Medical History Narrative Medical By records Asthma: No Cancer: No Cardiovascular Problems: No Chemotherapy: No COPD: Yes Diminished Hearing: No Endocrine: No Gastrointestinal Disorders: Yes (BLOOD IN STOOL) GERD: Yes Genitourinary: No Immune Disorder: No Musculoskeletal: No Neurologic: No Psychiatric: No Reproductive: No Respiratory: Yes Radiation Therapy: No Past Surgical History Narrative Surgical By records Abdominal Surgery: No AICD: No Arteriovenous Shunt: No Cardiac Surgery: No Ear Surgery: No Endocrine Surgery: No Eye Surgery: No Genitourinary Surgery: No Gynecologic Surgery: No Insulin Pump: No Joint Replacement: No Oral Surgery: Yes (TONSILLECTOMY) Pacemaker: No Thoracic Surgery: No Tonsillectomy: Yes Other Surgery: Yes Social History Narrative Social History By records Alcohol Use: Yes (SEVERAL BEERS AT NIGHT) Tobacco Use: Yes (> 1/2 PPD) Substance Use: No Allergies-Medications (Allergen,Severity, Reaction): Coded Allergies: No Known Allergies (Verified , 03/15/15) Reported Meds & Prescriptions Reported Meds & Active Scripts Active Prednisone (48) 10 mg tab Dose Pack (Prednisone) 10 Mg Dspk 10 Mg PO DIRECTED Take 3 tabs by mouth twice a day 3 days then 2 tabs twice a day 3 days then 1 tab twice a day 3 days then stop. Spiriva Handihaler (Tiotropium Inh) 18 Mcg Cap 18 Mcg INH DAILY 1 capsule = 18 mcg Cardizem CD 24 HR (Diltiazem CD 24 HR) 240 Mg Caper 240 Mg PO DAILY Lisinopril 10 Mg Tab 10 Mg PO DAILY Levaquin (Levofloxacin) 750 Mg Tab 750 Mg PO DAILY Duoneb (Ipratropium-Albuterol Neb) 0.5-2.5 Mg/3 Ml Neb 1 Ampule NEB Q4HR WHILE AWAKE NEB Oxygen tank (Oxygen) 1 Ea Tank 2 Liter NASIR.CANULA CONTINUOUS Oxygen Concentrator Portable Gaseous 2 L/min via Nasal Cannula Continuous For 99 months Reported Temazepam 30 Mg Cap 30 Mg PO HS Vitamin B-Complex (B-Complex Vitamins) 1 Tab 1 Tab PO DAILY [place] (Hydrocodone-Acetaminophen) 10-325 Mg Tab 1 Tab PO Q6H PRN Multiple Vitamin 1 Tab 1 Tab PO DAILY Omeprazole 20 Mg Tab 20 Mg PO DAILY Nicotine Patch (Nicotine) 21 Mg/24 Hr Patch 21 Mg T-DERMAL DAILY Ferrous Sulfate 325 Mg Tab 325 Mg PO DAILY Review of Systems ROS Limitations: Clinical Condition Physical Exam Exam Limitations: Clinical Condition Narrative GENERAL: ill appearing intubated patient. SKIN: Warm and dry. HEAD: Normocephalic and atraumatic. EYES: No injection or drainage. ENT: No nasal drainage noted. NECK: Supple, trachea midline. CARDIOVASCULAR: Regular rate and rhythm RESPIRATORY: decreased aeration with faint wheezing bilaterally. No accessory muscle use. GASTROINTESTINAL: Abdomen nondistended. NEUROLOGICAL: moves extremities, intubated Data Data Last Documented VS Vital Signs Date Time Temp Pulse Resp B/P (MAP) Pulse Ox O2 Delivery O2 Flow Rate FiO2 10/13/17 08:00 120 16 135/104 (114) 100 40 Orders Orders Propofol 1000 Mg/100 Ml Inj (Diprivan 10 (10/13/17 06:22) Sepsis Workup Initiated (10/13/17 ) Electrocardiogram (10/13/17 06:23) Complete Blood Count With Diff (10/13/17 06:23) Comprehensive Metabolic Panel (10/13/17 06:23) Prothrombin Time / Inr (Pt) (10/13/17 06:23) Act Partial Throm Time (Ptt) (10/13/17 06:23) Lactic Acid Sepsis Protocol (10/13/17 06:23) Magnesium (Mg) (10/13/17 06:23) Phosphorus (Po4) (10/13/17 06:23) Ckmb (Isoenzyme) Profile (10/13/17 06:23) Troponin I (10/13/17 06:23) Urinalysis - C+S If Indicated (10/13/17 06:23) Blood Culture (10/13/17 06:23) Chest, Single Ap (10/13/17 06:23) Arterial Blood Gas (Abg) (10/13/17 06:23) Blood Glucose (10/13/17 06:23) Ecg Monitoring (10/13/17 06:23) Iv Access Insert/Monitor (10/13/17 06:23) Oximetry (10/13/17 06:23) Oxygen Administration (10/13/17 06:23) Cefepime Inj (Maxipime Inj) (10/13/17 06:23) Azithromycin Inj (Zithromax Inj) (10/13/17 06:23) Methylprednisolone So Succ Inj (Solumedr (10/13/17 06:30) Albuterol-Ipratropium Neb (Duoneb Neb) (10/13/17 06:30) Sodium Chlorid 0.9% 500 Ml Inj (Ns 500 M (10/13/17 06:30) Propofol 1000 Mg/100 Ml Inj (Diprivan 10 (10/13/17 06:30) RASS (10/13/17 06:30) Neurological Rass Scale JOEL.Q2H (10/13/17 06:30) Midazolam Inj (Versed Inj) (10/13/17 06:30) ^ Infusion (10/13/17 06:30) Neurological Rass Scale Q30MX2,Q2HX4,Q4H (10/13/17 06:53) Fentanyl Drip (Fentanyl Drip) (10/13/17 07:00) Admit Order (Ed Use Only) (10/13/17 08:13) Labs Laboratory Tests Test 10/13/17 06:50 10/13/17 07:15 10/13/17 08:00 White Blood Count 7.0 TH/MM3 Red Blood Count 3.56 MIL/MM3 Hemoglobin 12.3 GM/DL Hematocrit 37.3 % Mean Corpuscular Volume 105.0 FL Mean Corpuscular Hemoglobin 34.5 PG Mean Corpuscular Hemoglobin Concent 32.9 % Red Cell Distribution Width 15.1 % Platelet Count 459 TH/MM3 Mean Platelet Volume 8.0 FL Neutrophils (%) (Auto) 85.6 % Lymphocytes (%) (Auto) 4.9 % Monocytes (%) (Auto) 9.2 % Eosinophils (%) (Auto) 0.2 % Basophils (%) (Auto) 0.1 % Neutrophils # (Auto) 6.0 TH/MM3 Lymphocytes # (Auto) 0.3 TH/MM3 Monocytes # (Auto) 0.7 TH/MM3 Eosinophils # (Auto) 0.0 TH/MM3 Basophils # (Auto) 0.0 TH/MM3 CBC Comment DIFF FINAL Differential Comment Prothrombin Time 11.8 SEC Prothromb Time International Ratio 1.2 RATIO Activated Partial Thromboplast Time 42.2 SEC Blood Urea Nitrogen 11 MG/DL Creatinine 0.89 MG/DL Random Glucose 108 MG/DL Total Protein 7.9 GM/DL Albumin 3.4 GM/DL Calcium Level 9.1 MG/DL Phosphorus Level 3.9 MG/DL Magnesium Level 1.8 MG/DL Alkaline Phosphatase 117 U/L Aspartate Amino Transf (AST/SGOT) 23 U/L Alanine Aminotransferase (ALT/SGPT) 26 U/L Total Bilirubin 0.6 MG/DL Sodium Level 135 MEQ/L Potassium Level 5.1 MEQ/L Chloride Level 95 MEQ/L Carbon Dioxide Level 32.9 MEQ/L Anion Gap 7 MEQ/L Estimat Glomerular Filtration Rate 86 ML/MIN Lactic Acid Level 5.0 mmol/L Total Creatine Kinase 35 U/L Troponin I LESS THAN 0.02 NG/ML Urine Color YELLOW Urine Turbidity HAZY Urine pH 5.5 Urine Specific [place] 1.020 Urine Protein 100 mg/dL Urine Glucose (UA) NEG mg/dL Urine Ketones 10 mg/dL Urine Occult Blood NEG Urine Nitrite NEG Urine Bilirubin NEG Urine Urobilinogen LESS THAN 2.0 MG/DL Urine Leukocyte Esterase NEG Urine RBC LESS THAN 1 /hpf Urine WBC 1 /hpf Urine Squamous Epithelial Cells 2 /hpf Urine Transitional Epithelial Cells <1 /hpf Urine Amorphous Sediment FEW Urine Granular Casts 23 /lpf Urine Mucus FEW /lpf Microscopic Urinalysis Comment CATH-CULT NOT IND Blood Gas Puncture Site LT RADIAL Blood Gas Patient Temperature 37.0 Blood Gas HCO3 28 mmol/L Blood Gas Base Excess 2.4 mmol/L Blood Gas Oxygen Saturation 98 % Arterial Blood pH 7.29 Arterial Blood Partial Pressure CO2 61 mmHg Arterial Blood Partial Pressure O2 228 mmHG Arterial Blood Oxygen Content 16.5 Vol % Arterial Blood Carboxyhemoglobin 1.5 % Arterial Blood Methemoglobin 0.5 % Blood Gas Hemoglobin 11.6 G/DL Oxygen Delivery Device VENTILATOR Blood Gas Ventilator Setting SEE COMMENTS Blood Gas Inspired Oxygen 70 % [facility] Medical Decision Making Medical Screen Exam Complete: Yes Emergency Medical Condition: Yes Medical Record Reviewed: Yes (pmh confirmed) Differential Diagnosis pneumonia, copd, respiratory failure, sepsis Narrative Course will dose with propofol for sedation, while this was being drawn patient given 1mg of versed, will check labs, cxr and dose with solumedrol and duonebs in addition to antibiotics Physician Communication Physician Communication oncoming physician to follow workup and admit Diagnosis Primary Impression: Respiratory failure Qualified Codes: J96.00 - Acute respiratory failure, unspecified whether with hypoxia or hypercapnia Susanne Whittington MD Oct 13, 2017 06:43
[2017-10-13] MEDS: RESP: ALBUTEROL 2.5 MG/IPRATROPIUM 0.5 MG NEB (SCH) INH ×5 (06:56→20:12)
[2017-10-13] MEDS ORDERED: fentaNYL DRIP 250 ML IV PRN (07:00)
--- NOTE | 2017-10-13 07:16 | RADRPT ---
EXAM DATE/TIME: 10/13/2017 06:29 [place] COMPARISON: CHEST SINGLE AP, December 24, 2016, 6:12. INDICATIONS : Post intubation MEDICAL HISTORY : Unknown SURGICAL HISTORY : Unknown ENCOUNTER: Initial ACUITY: 1 day PAIN SCORE: Non-responsive. LOCATION: Bilateral chest FINDINGS: A single view of the chest demonstrates endotracheal tube placement with tip 7 cm above the laura. M inimal left basilar density. Hyperinflation which can be seen with COPD. Patient is rotated to the le ft.. Osseous structures are intact. CONCLUSION: 1. Minimal left basilar infiltrate. 2. Endotracheal tube tip 7 cm above the laura. Artemio Calix MD on October 13, 2017 at 7:13 Board Certified Radiologist. This report was verified electronically.
[2017-10-13 07:35] LABS: BASOPHIL % 0.1 % (0.0-2.0); EOSINOPHIL % 0.2 % (0.0-4.0); HEMATOCRIT 37.3 % (39.0-51.0); HEMO FLAGS DIFF FINAL; LYMPH % 4.9 % (9.0-44.0); LYMPHOCYTE # 0.3 TH/MM3 (1.0-4.8); MEAN CORPUSCULAR HEMOGLOBIN 34.5 PG (27.0-34.0); MEAN CORPUSCULAR HGB CONC 32.9 % (32.0-36.0); MONO % 9.2 % (0.0-8.0); NEUT % 85.6 % (16.0-70.0); PLATELET COUNT 459 TH/MM3 (150-450); RED BLOOD COUNT 3.56 MIL/MM3 (4.50-5.90); RED CELL DISTRIBUTION WIDTH 15.1 % (11.6-17.2)
[2017-10-13 07:53] LABS: APTT (PATIENT) 42.2 SEC (24.3-30.1); INTERNATIONAL NORMALIZED RATIO 1.2 RATIO; PROTHROMBIN TIME - PATIENT 11.8 SEC (9.8-11.6)
[2017-10-13 07:58] LABS: ALT (GPT) 26 U/L (12-78); ANION GAP 7 MEQ/L (5-15); AST (GOT) 23 U/L (15-37); BICARBONATE 32.9 MEQ/L (21.0-32.0); BLOOD UREA NITROGEN 11 MG/DL (7-18); CHLORIDE 95 MEQ/L (98-107); GLOMERULAR FILTRATION RATE 86 ML/MIN (>89); MAGNESIUM 1.8 MG/DL (1.5-2.5); POTASSIUM 5.1 MEQ/L (3.5-5.1); SODIUM (NA) 135 MEQ/L (136-145)
[2017-10-13 08:02] LABS: ALKALINE PHOSPHATASE 117 U/L (45-117); TOTAL BILIRUBIN ADULT 0.6 MG/DL (0.2-1.0)
[2017-10-13 08:07] LABS: BLOOD GAS BASE EXCESS 2.4 mmol/L (-2-2); BLOOD GAS CARBOXYHEMOGLOBIN 1.5 % (0-4); BLOOD GAS HCO3 28 mmol/L (22-26); BLOOD GAS METHEMOGLOBIN 0.5 % (0-2); BLOOD GAS O2 HGB SATURATION 98 % (90-100); BLOOD GAS OXYGEN CONTENT 16.5 Vol % (12.0-20.0); BLOOD GAS PCO2 61 mmHg (38-42); BLOOD GAS PO2 228 mmHG (61-120); BLOOD GAS TOTAL HGB 11.6 G/DL (12.0-16.0)
[2017-10-13 08:09] LABS: CRITICAL VALUE YES; DRAW SITE LT RADIAL; FIO2 70 %; NUMBER OF ARTERIAL PUNCTURES 1; OXYGEN DEVICE VENTILATOR; STAT NO; ULNAR PULSE PRESENT; VENT SETTINGS SEE COMMENTS
[2017-10-13 08:12] LABS: BLOOD, URINE NEG (NEG); COMMENT (UR) CATH-CULT NOT IND; CULTURE IF INDICATED CATH CULTURE NOT IND; GLUCOSE,URINE NEG (NEG); GRANULAR CAST, URINE 23 /lpf; KETONE, URINE 10 mg/dL (NEG); MUCUS URINE FEW /lpf (OCC); NITRITE,URINE NEG (NEG); PH, URINE 5.5 (5.0-8.5); SQUAMOUS EPITHELIAL CELL URINE 2 /hpf (0-5); TRANSITIONAL EPI CELLS, URINE <1 /hpf; URINE COLOR YELLOW (YELLW/STRAW)
[2017-10-13] MEDS ORDERED: BISACODYL 10 MG SUPP RECTAL PRN (08:15)
[2017-10-13] MEDS ORDERED: MAGNESIUM HYDROXIDE SUSP 30 ML CUP PO PRN (08:15)
[2017-10-13] MEDS ORDERED: CHLORHEXIDINE GLUCONATE 2 % 1 PACK (2 CLOTHS) TOP PRN (08:15)
[2017-10-13] MEDS ORDERED: LACTULOSE SYRUP 20 GM/30 ML CUP PO PRN (08:15)
[2017-10-13] MEDS ORDERED: SENNOSIDES 8.6 MG TAB PO PRN (08:15)
[2017-10-13] MEDS ORDERED: MISCELLANEOUS NURSING INFORMATION XX SCH (08:15)
[2017-10-13] MEDS ORDERED: ONDANSETRON HCL 4 MG/2 ML VIAL IV PUSH PRN (08:15)
--- NOTE | 2017-10-13 08:16 | PD ---
Physical Exam Date Seen by Provider: Oct 13, 2017 Time Seen by Provider: 07:00 Narrative Case signed out to me at 7 AM, please see previous notes for further details, here because he was found unresponsive by , hypoxic fast in the 60s according to EMS, intubated by EMS. Awaiting workup, needs admission to ICU. Laboratory Tests Test 10/13/17 06:50 10/13/17 08:00 Red Blood Count 3.56 MIL/MM3 (4.50-5.90) Hemoglobin 12.3 GM/DL (13.0-17.0) Hematocrit 37.3 % (39.0-51.0) Mean Corpuscular Volume 105.0 FL (80.0-100.0) Mean Corpuscular Hemoglobin 34.5 PG (27.0-34.0) Platelet Count 459 TH/MM3 (150-450) Neutrophils (%) (Auto) 85.6 % (16.0-70.0) Lymphocytes (%) (Auto) 4.9 % (9.0-44.0) Monocytes (%) (Auto) 9.2 % (0.0-8.0) Lymphocytes # (Auto) 0.3 TH/MM3 (1.0-4.8) Prothrombin Time 11.8 SEC (9.8-11.6) Activated Partial Thromboplast Time 42.2 SEC (24.3-30.1) Random Glucose 108 MG/DL (74-106) Sodium Level 135 MEQ/L (136-145) Chloride Level 95 MEQ/L (98-107) Carbon Dioxide Level 32.9 MEQ/L (21.0-32.0) Estimat Glomerular Filtration Rate 86 ML/MIN (>89) Lactic Acid Level 5.0 mmol/L (0.4-2.0) Blood Gas HCO3 28 mmol/L (22-26) Blood Gas Base Excess 2.4 mmol/L (-2-2) Arterial Blood pH 7.29 (7.380-7.420) Arterial Blood Partial Pressure CO2 61 mmHg (38-42) Arterial Blood Partial Pressure O2 228 mmHG (61-120) Blood Gas Hemoglobin 11.6 G/DL (12.0-16.0) Last 24 hours Impressions Chest X-Ray 10/13/17 0623 Signed Impressions: Service Date/Time: Saturday, October 13, 2017 06:29 - CONCLUSION: 1. Minimal left basilar infiltrate. 2. Endotracheal tube tip 7 cm above the laura. Artemio Calix MD There is some mild left basilar infiltrate, likely developing pneumonia. ET tube appears to be in place. Patient has already been given IV antibiotics and at this point, lab work returns showing a lactate of 5. Awaiting the rest her workup, my plan would be to admit the patient for further treatment. Case was discussed with Dr. Williamson of critical care for admission. Data Data Last Documented VS Vital Signs Date Time Temp Pulse Resp B/P (MAP) Pulse Ox O2 Delivery O2 Flow Rate FiO2 10/13/17 07:00 120 15 118/75 (89) 100 10/13/17 06:30 99.2 10/13/17 06:30 Bag Valve 10/13/17 06:16 70 Orders Orders Propofol 1000 Mg/100 Ml Inj (Diprivan 10 (10/13/17 06:22) Sepsis Workup Initiated (10/13/17 ) Electrocardiogram (10/13/17 06:23) Complete Blood Count With Diff (10/13/17 06:23) Comprehensive Metabolic Panel (10/13/17 06:23) Prothrombin Time / Inr (Pt) (10/13/17 06:23) Act Partial Throm Time (Ptt) (10/13/17 06:23) Lactic Acid Sepsis Protocol (10/13/17 06:23) Magnesium (Mg) (10/13/17 06:23) Phosphorus (Po4) (10/13/17 06:23) Ckmb (Isoenzyme) Profile (10/13/17 06:23) Troponin I (10/13/17 06:23) Urinalysis - C+S If Indicated (10/13/17 06:23) Influenzae A/B Antigen (10/13/17 06:23) Blood Culture (10/13/17 06:23) Chest, Single Ap (10/13/17 06:23) Arterial Blood Gas (Abg) (10/13/17 06:23) Blood Glucose (10/13/17 06:23) Ecg Monitoring (10/13/17 06:23) Iv Access Insert/Monitor (10/13/17 06:23) Oximetry (10/13/17 06:23) Oxygen Administration (10/13/17 06:23) Cefepime Inj (Maxipime Inj) (10/13/17 06:23) Azithromycin Inj (Zithromax Inj) (10/13/17 06:23) Methylprednisolone So Succ Inj (Solumedr (10/13/17 06:30) Albuterol-Ipratropium Neb (Duoneb Neb) (10/13/17 06:30) Sodium Chlorid 0.9% 500 Ml Inj (Ns 500 M (10/13/17 06:30) Propofol 1000 Mg/100 Ml Inj (Diprivan 10 (10/13/17 06:30) RASS (10/13/17 06:30) Neurological Rass Scale JOEL.Q2H (10/13/17 06:30) Midazolam Inj (Versed Inj) (10/13/17 06:30) ^ Infusion (10/13/17 06:30) Sputum Culture And Gram Stain (10/13/17 06:35) Neurological Rass Scale Q30MX2,Q2HX4,Q4H (10/13/17 06:53) Fentanyl Drip (Fentanyl Drip) (10/13/17 07:00) Admit Order (Ed Use Only) (10/13/17 08:13) Labs Laboratory Tests Test 10/13/17 06:50 10/13/17 08:00 White Blood Count 7.0 TH/MM3 Red Blood Count 3.56 MIL/MM3 Hemoglobin 12.3 GM/DL Hematocrit 37.3 % Mean Corpuscular Volume 105.0 FL Mean Corpuscular Hemoglobin 34.5 PG Mean Corpuscular Hemoglobin Concent 32.9 % Red Cell Distribution Width 15.1 % Platelet Count 459 TH/MM3 Mean Platelet Volume 8.0 FL Neutrophils (%) (Auto) 85.6 % Lymphocytes (%) (Auto) 4.9 % Monocytes (%) (Auto) 9.2 % Eosinophils (%) (Auto) 0.2 % Basophils (%) (Auto) 0.1 % Neutrophils # (Auto) 6.0 TH/MM3 Lymphocytes # (Auto) 0.3 TH/MM3 Monocytes # (Auto) 0.7 TH/MM3 Eosinophils # (Auto) 0.0 TH/MM3 Basophils # (Auto) 0.0 TH/MM3 CBC Comment DIFF FINAL Differential Comment Prothrombin Time 11.8 SEC Prothromb Time International Ratio 1.2 RATIO Activated Partial Thromboplast Time 42.2 SEC Blood Urea Nitrogen 11 MG/DL Creatinine 0.89 MG/DL Random Glucose 108 MG/DL Albumin 3.4 GM/DL Calcium Level 9.1 MG/DL Phosphorus Level 3.9 MG/DL Magnesium Level 1.8 MG/DL Aspartate Amino Transf (AST/SGOT) 23 U/L Alanine Aminotransferase (ALT/SGPT) 26 U/L Sodium Level 135 MEQ/L Potassium Level 5.1 MEQ/L Chloride Level 95 MEQ/L Carbon Dioxide Level 32.9 MEQ/L Anion Gap 7 MEQ/L Estimat Glomerular Filtration Rate 86 ML/MIN Lactic Acid Level 5.0 mmol/L Blood Gas Puncture Site LT RADIAL Blood Gas Patient Temperature 37.0 Blood Gas HCO3 28 mmol/L Blood Gas Base Excess 2.4 mmol/L Blood Gas Oxygen Saturation 98 % Arterial Blood pH 7.29 Arterial Blood Partial Pressure CO2 61 mmHg Arterial Blood Partial Pressure O2 228 mmHG Arterial Blood Oxygen Content 16.5 Vol % Arterial Blood Carboxyhemoglobin 1.5 % Arterial Blood Methemoglobin 0.5 % Blood Gas Hemoglobin 11.6 G/DL Oxygen Delivery Device VENTILATOR Blood Gas Ventilator Setting SEE COMMENTS Blood Gas Inspired Oxygen 70 % [facility] Medical Record Reviewed: Yes Supervised Visit with LADI: No Diagnosis Primary Impression: Respiratory failure Qualified Codes: J96.00 - Acute respiratory failure, unspecified whether with hypoxia or hypercapnia Additional Impressions: Sepsis Endotracheally intubated Admitting Information Admitting Physician Requests: it Dharmesh Srivastava MD Oct 13, 2017 08:16
[2017-10-13 08:24] LABS: CREATINE KINASE 35 U/L (39-308)
[2017-10-13] MEDS ORDERED: DEXTROSE 50% IN WATER 50 ML VIAL(D50) IV PUSH PRN (08:30)
[2017-10-13] MEDS ORDERED: GLUCAGON 1 MG/ML VIAL OTHER PRN (08:30)
[2017-10-13] MEDS ORDERED: ARTIFICIAL TEARS OPTH SOLN 15 ML BTL EACH EYE SCH (09:00)
--- NOTE | 2017-10-13 09:09 | HHI.HP ---
[facility] Service Critical Care Medicine Primary Care Physician [facility] Admission Diagnosis hypoxia/respiratory failure/intubated Diagnosis: (1) Metabolic acidosis with respiratory acidosis Diagnosis: Principal (2) Thrombocytosis Diagnosis: Principal (3) Macrocytic anemia Diagnosis: Principal (4) Lactic acidosis Diagnosis: Principal (5) Gastroesophageal reflux disease Diagnosis: Secondary (6) Hypertension Diagnosis: Secondary (7) COPD, group D, by GOLD 2017 classification Diagnosis: Principal (8) Acute respiratory failure with hypoxia and hypercapnia Diagnosis: Principal (9) Tobacco abuse Diagnosis: Principal (10) Sepsis Diagnosis: Principal (11) Pulmonary hypertension due to COPD Diagnosis: Principal (12) Elevated partial thromboplastin time (PTT) Diagnosis: Principal Chief Complaint: Shortness of breath Travel History International Travel<30 Days: No Contact w/Intl Traveler <30 Da: No Traveled to Known Affected Are: No Sepsis Criteria SIRS Criteria (2 or more): RR > 20 or PaCO2 < 32 Sepsis Criteria (SIRS+source): Infect source susp/known Severe Sepsis (+one): Lactate >2 Septic Shock Criteria: Lactic acid >=4 History of Present Illness This is a 62-year-old male. Date of admission 10/13/2017. Past records includes oxygen-dependent COPD, hypertension, gastroesophageal reflux disease. Patient since his last admission here is had a lung biopsy which resulted pneumothorax at the [place] in [place]. He was recently treated as an outpatient for pneumonia with levofloxacin and a prednisone taper along with scheduled DuoNeb's at home. He presents to [facility] after being orotracheally intubated in the field 7.0 ET tube due to acute hypoxic respiratory failure. EMS was called due to increasing shortness of breath. Saturations were in the 60s at his residence. According to , patient was being treated for pneumonia Hospital workup includes lactic acid of 5.0. White blood cell count within normal limits. Patient received 2 L normal saline in the interim. Hemodynamically stable currently. Sedated on propofol and fentanyl drips. Review of Systems ROS Limitations: Intubated, Altered Mental Status Past Family Social History Allergies: Coded Allergies: No Known Allergies (Verified , 03/15/15) Past Medical History Gastroesophageal reflux disease Hypertension COPD Gold D Pulmonary hypertension class III History of macrocytic anemia Prior History of tobaccoism Prior History of EtOH use Insomnia Past Surgical History Tonsillectomy and adenoidectomy Lung biopsy with resultant pneumothorax Reported Medications Prednisone (48) 10 mg tab Dose Pack (Prednisone) 10 Mg Dspk 10 Mg PO DIRECTED Take 3 tabs by mouth twice a day 3 days then 2 tabs twice a day 3 days then 1 tab twice a day 3 days then stop. Spiriva Handihaler (Tiotropium Inh) 18 Mcg Cap 18 Mcg INH DAILY 1 capsule = 18 mcg Cardizem CD 24 HR (Diltiazem CD 24 HR) 240 Mg Caper 240 Mg PO DAILY Lisinopril 10 Mg Tab 10 Mg PO DAILY Levaquin (Levofloxacin) 750 Mg Tab 750 Mg PO DAILY Duoneb (Ipratropium-Albuterol Neb) 0.5-2.5 Mg/3 Ml Neb 1 Ampule NEB Q4HR WHILE AWAKE NEB Oxygen tank (Oxygen) 1 Ea Tank 2 Liter NASIR.CANULA CONTINUOUS Oxygen Concentrator Portable Gaseous 2 L/min via Nasal Cannula Continuous For 99 months Reported Temazepam 30 Mg Cap 30 Mg PO HS Vitamin B-Complex (B-Complex Vitamins) 1 Tab 1 Tab PO DAILY [place] (Hydrocodone-Acetaminophen) 10-325 Mg Tab 1 Tab PO Q6H PRN Multiple Vitamin 1 Tab 1 Tab PO DAILY Omeprazole 20 Mg Tab 20 Mg PO DAILY Nicotine Patch (Nicotine) 21 Mg/24 Hr Patch 21 Mg T-DERMAL DAILY Ferrous Sulfate 325 Mg Tab 325 Mg PO DAILY Family History Negative. denies any family history of GI bleeding, sudden , hypertension, diabetes Social History Quit tobacco and alcohol within the past month. Previous heavy usage 4-5 beers daily and 1/2-1 pack per day tobacco for "several years". Physical Exam Vital Signs Vital Signs Date Time Temp Pulse Resp B/P (MAP) Pulse Ox O2 Delivery O2 Flow Rate FiO2 10/13/17 07:00 120 15 118/75 (89) 100 10/13/17 07:00 40 10/13/17 06:55 126 24 115/82 (93) 100 10/13/17 06:50 120 20 100/59 (73) 100 10/13/17 06:45 118 22 144/76 (98) 100 10/13/17 06:40 122 22 124/98 (107) 100 10/13/17 06:35 122 26 100 10/13/17 06:30 122 22 141/94 (110) 100 10/13/17 06:30 99.2 124 24 133/91 (105) 100 10/13/17 06:30 100 Bag Valve 10/13/17 06:25 124 24 140/91 (107) 100 10/13/17 06:16 98 70 Physical Exam GENERAL: 62-year-old male, resting in bed orotracheally intubated SKIN: Warm and dry. No rash HEAD: Atraumatic. Normocephalic. EYES: Pupils equal and round about 2 mm bilaterally and reactive. No scleral icterus. No injection or drainage. ENT: No nasal bleeding or discharge. Mucous membranes pink and moist. NECK: Trachea midline. No JVD. CARDIOVASCULAR: Tachycardic, RR. S1, S2. No S4. Without murmur, clicks, gallops or rubs RESPIRATORY: No accessory muscle use. Clear to auscultation. Breath sounds equal bilaterally. GASTROINTESTINAL: Abdomen soft, non-tender, nondistended. Hypoactive bowel sounds are appreciated MUSCULOSKELETAL: Extremities without significant peripheral edema. No obvious deformities. NEUROLOGICAL: Cranial nerves II through XII grossly intact. Withdraws to pain in all 4 extremities. Currently not following commands. Sedated on propofol and fentanyl drips Laboratory Laboratory Tests Test 10/13/17 06:50 10/13/17 07:15 10/13/17 08:00 White Blood Count 7.0 Red Blood Count 3.56 Hemoglobin 12.3 Hematocrit 37.3 Mean Corpuscular Volume 105.0 Mean Corpuscular Hemoglobin 34.5 Mean Corpuscular Hemoglobin Concent 32.9 Red Cell Distribution Width 15.1 Platelet Count 459 Mean Platelet Volume 8.0 Neutrophils (%) (Auto) 85.6 Lymphocytes (%) (Auto) 4.9 Monocytes (%) (Auto) 9.2 Eosinophils (%) (Auto) 0.2 Basophils (%) (Auto) 0.1 Neutrophils # (Auto) 6.0 Lymphocytes # (Auto) 0.3 Monocytes # (Auto) 0.7 Eosinophils # (Auto) 0.0 Basophils # (Auto) 0.0 CBC Comment DIFF FINAL Differential Comment Prothrombin Time 11.8 Prothromb Time International Ratio 1.2 Activated Partial Thromboplast Time 42.2 Blood Urea Nitrogen 11 Creatinine 0.89 Random Glucose 108 Total Protein 7.9 Albumin 3.4 Calcium Level 9.1 Phosphorus Level 3.9 Magnesium Level 1.8 Alkaline Phosphatase 117 Aspartate Amino Transf (AST/SGOT) 23 Alanine Aminotransferase (ALT/SGPT) 26 Total Bilirubin 0.6 Sodium Level 135 Potassium Level 5.1 Chloride Level 95 Carbon Dioxide Level 32.9 Anion Gap 7 Estimat Glomerular Filtration Rate 86 Lactic Acid Level 5.0 Total Creatine Kinase 35 Troponin I LESS THAN 0.02 Urine Color YELLOW Urine Turbidity HAZY Urine pH 5.5 Urine Specific [place] 1.020 Urine Protein 100 Urine Glucose (UA) NEG Urine Ketones 10 Urine Occult Blood NEG Urine Nitrite NEG Urine Bilirubin NEG Urine Urobilinogen LESS THAN 2.0 Urine Leukocyte Esterase NEG Urine RBC LESS THAN 1 Urine WBC 1 Urine Squamous Epithelial Cells 2 Urine Transitional Epithelial Cells <1 Urine Amorphous Sediment FEW Urine Granular Casts 23 Urine Mucus FEW Microscopic Urinalysis Comment CATH-CULT NOT IND Blood Gas Puncture Site LT RADIAL Blood Gas Patient Temperature 37.0 Blood Gas HCO3 28 Blood Gas Base Excess 2.4 Blood Gas Oxygen Saturation 98 Arterial Blood pH 7.29 Arterial Blood Partial Pressure CO2 61 Arterial Blood Partial Pressure O2 228 Arterial Blood Oxygen Content 16.5 Arterial Blood Carboxyhemoglobin 1.5 Arterial Blood Methemoglobin 0.5 Blood Gas Hemoglobin 11.6 Oxygen Delivery Device VENTILATOR Blood Gas Ventilator Setting SEE COMMENTS Blood Gas Inspired Oxygen 70 Date/Time Source Procedure Growth Status 10/13/17 07:15 Blood Peripheral Aerobic Blood Culture Pending Received 10/13/17 07:15 Blood Peripheral Anaerobic Blood Culture Pending Received Result Diagram: 10/13/17 0650 10/13/17 0650 Imaging Last Impressions Chest X-Ray 10/13/1723 Signed Impressions: Service Date/Time: Friday, October 13, 2017 06:29 - CONCLUSION: 1. Minimal left basilar infiltrate. 2. Endotracheal tube tip 7 cm above the laura. Artemio Calix MD Caprini VTE Risk Assessment Caprini VTE Risk Assessment: Mod/High Risk (score >= 2) Caprini Risk Assessment Model Point Value = 1 Point Value = 2 Point Value = 3 Point Value = 5 Age 41-60 Minor surgery BMI > 25 kg/m2 Swollen legs Varicose veins or History of unexplained or recurrent spontaneous Oral contraceptives or hormone replacement Sepsis (< 1 month) Serious lung disease, including pneumonia (< 1 month) Abnormal pulmonary function Acute myocardial infarction Congestive heart failure (< 1 month) History of inflammatory bowel disease Medical patient at bed rest Age 61-74 Arthroscopic surgery Major open surgery (> 45 min) Laparoscopic surgery (> 45 min) Malignancy Confined to bed (> 72 hours) Immobilizing plaster cast Central venous access Age >= 75 History of VTE Family history of VTE Factor V Leiden Prothrombin [id number] Lupus anticoagulant Anticardiolipin antibodies Elevated serum homocysteine Heparin-induced thrombocytopenia Other congenital or acquired thrombophilia Stroke (< 1 month) Elective arthroplasty Hip, pelvis, or leg fracture Acute spinal cord injury (< 1 month) Prophylaxis Regimen Total Risk Factor Score Risk Level Prophylaxis Regimen 0-1 Low Early ambulation 2 Moderate Order ONE of the following: *Sequential Compression Device (SCD) *Heparin 5000 units SQ BID 3-4 Higher Order ONE of the following medications: *Heparin 5000 units SQ TID *Enoxaparin/Lovenox 40 mg SQ daily (WT < 150 kg, CrCl > 30 mL/min) *Enoxaparin/Lovenox 30 mg SQ daily (WT < 150 kg, CrCl > 10-29 mL/min) *Enoxaparin/Lovenox 30 mg SQ BID (WT < 150 kg, CrCl > 30 mL/min) AND/OR *Sequential Compression Device (SCD) 5 or more Highest Order ONE of the following medications: *Heparin 5000 units SQ TID (Preferred with Epidurals) *Enoxaparin/Lovenox 40 mg SQ daily (WT < 150 kg, CrCl > 30 mL/min) *Enoxaparin/Lovenox 30 mg SQ daily (WT < 150 kg, CrCl > 10-29 mL/min) *Enoxaparin/Lovenox 30 mg SQ BID (WT < 150 kg, CrCl > 30 mL/min) AND *Sequential Compression Device (SCD) Assessment and Plan Assessment and Plan Neuro/Psych: History of EtOH use Insomnia Patient is currently on propofol at 20 mics grams per kilogram per minute and fentanyl drip at 50 mcg an hour for sedation/analgesia while intubated RA SS -2 Daily sedation vacation Holding temazepam 30 mg by mouth by home medication for insomnia Continue vitamin along with B complex vitamin CV: Hypertension Pulmonary hypertension secondary to COPD Lactic acidosis Currently on normal saline at 84 cc an hour Holding diltiazem 240 mg daily and lisinopril 10 mg daily with borderline blood pressures Serial lactates until clear 2-D echocardiogram 12/29 revealed ejection fraction 55-60%. Mild MR/TR. Pulmonary arterial pressure 64 mmHg Resp: Acute hypoxic hypercapnic respiratory failure Community acquired pneumonia COPD Gold class D Chronic respiratory failure 2 L oxygen dependent Tobaccoism PRVC 16/500/0.9/5/40 Ventilator bundle Albuterol/ipratropium aerosols every 4 hours with albuterol aerosols every 2 hours. Dyspnea Methylprednisolone 40 mg IV every 8 hours Added budesonide 0.5/2 1 inhalation twice a day Spontaneous breathing trials when clinically indicated Chest x-ray to be reordered in a.m. 10/14 Patient is on albuterol/ipratropium aerosols every 4 hours while awake in tiotropium 18 mg inhaled daily at home. Recently on prednisone taper GI: Gastroesophageal reflux disease OGT to LIWS Famotidine for GI prophylaxis GI. Patient is on omeprazole 20 mg daily for gastroesophageal reflux disease at home. Docusate sodium/senna 1 tablet twice a day for bowel regimen : Mohr catheter has been placed for accurate I's and O's in a critically ill patient Endo: Sliding-scale insulin with Accu-Cheks every 6 hours to maintain euglycemia Novulin R low regimen Renal: Mixed respiratory acidosis and anion gap metabolic acidosis Creatinine currently within normal limits Monitor urine output Accurate I's and O's Status post 2 L normal saline in ED. Currently on normal saline at 84 cc an hour. Recheck lactate in a.m. Heme: Macrocytic anemia Thrombocytosis Elevated PTT Monitor CBC daily. Follow trends. Does not be transfusion thresholds at this time ID: CAP Patient previously treated with levofloxacin as an outpatient Currently on cefepime and azithromycin day #1 On 10/13/Blood cultures 2, urine culture, sputum, influenza, urine Legionella and pneumococcal antigens all ordered MSK: PT evaluate and treat range of motion FEN: Hyponatremia Replace electrolytes as clinically indicated Access - Utilize peripheral IV. Central line if indicated Prophylaxis - GI -famotidine - DVT -SCD/heparin subcutaneous Critical Care: The total critical care time was 35 minutes. Time to perform other separately billable procedures was not included in the critical care time. Code Status Full code Discussed Condition With at bedside. ED physician. Care plan discussed and all questions answered. Problem Qualifiers (1) Gastroesophageal reflux disease: Qualified Codes: K21.9 - Gastro-esophageal reflux disease without esophagitis (2) Hypertension: Qualified Codes: I10 - Essential (primary) hypertension (3) Sepsis: Qualified Codes: A41.9 - Sepsis, unspecified organism Ayad Williamson MD Oct 13, 2017 09:09
[2017-10-13 09:30] LABS: LACTIC ACID GHOST NOT REPORTABLE
[2017-10-13] MEDS ORDERED: SODIUM CHLOR 0.9% 1000 ML INJ 1,000 ML IV ONE ×2 (10:00→14:15)
[2017-10-13] MEDS ORDERED: DEXTROSE 50% IN WATER 50 ML SYRINGE ONE (10:28)
[2017-10-13] MEDS ORDERED: VITAMIN B COMPLEX PO SCH (11:00)
[2017-10-13] MEDS: SODIUM CHLORIDE 0.9% FLUSH 10 ML FLUSH IV FLUSH SCH ×2 (11:42→20:26)
[2017-10-13] MEDS: HEPARIN SODIUM - SQ 10,000 UNITS/ML VIAL SQ SCH ×2 (11:42→20:27)
[2017-10-13] MEDS: FAMOTIDINE 20 MG/2 ML VIAL IV PUSH SCH ×2 (11:42→20:26)
--- NOTE | 2017-10-13 11:43 | RADRPT ---
EXAM DATE/TIME: 10/13/2017 11:09 [facility] COMPARISON: No previous studies available for comparison. INDICATIONS : Bilateral leg edema. MEDICAL HISTORY : COPD. Blood in stool. GERD. SURGICAL HISTORY : Tonsillectomy. Genitourinary ostomy. ENCOUNTER: Initial ACUITY: 1 day PAIN SCORE: Non-responsive LOCATION: Bilateral leg. TECHNIQUE: Venous ultrasound of the left and right leg was performed from the inguinal ligament to the proximal calf. Real-time, color Doppler and spectral tracing, compression and augmentation techniques were us ed. FINDINGS: RIGHT LEG: There is normal compressibility of the deep venous system from the inguinal region to the proximal ca lf. No echogenic clot is seen in the lumen of the common femoral, femoral, popliteal, and posterior tibial veins. There is a normal response of the venous system to proximal and distal augmentation an d respiration. LEFT LEG: There is normal compressibility of the deep venous system from the inguinal region to the proximal ca lf. No echogenic clot is seen in the lumen of the common femoral, femoral, popliteal, and posterior tibial veins. There is a normal response of the venous system to proximal and distal augmentation an d respiration. CONCLUSION: No DVT in either lower extremity. Artemio Calix MD on October 13, 2017 at 11:40 Board Certified Radiologist. This report was verified electronically.
[2017-10-13] MEDS: INSULIN NovoLIN REGULAR SUPPLEMENTAL SCALE SQ SCH ×2 (11:51→18:00)
[2017-10-13] MEDS: methylPREDNISolone SOD SUCC 40 MG/1 ML VIAL IV PUSH SCH ×2 (13:29→22:37)
[2017-10-13] MEDS: SODIUM CHLOR 0.9% 1000 ML INJ 1,000 ML IV SCH (13:30)
[2017-10-13] MEDS: ARTIFICIAL TEARS OPTH SOLN 15 ML BTL EACH EYE SCH (14:00)
[2017-10-13] MEDS: MULTIVITAMIN TAB PO SCH (14:50)
[2017-10-13] MEDS: DOCUSATE SODIUM 50 MG/SENNA 8.6 MG TAB PO SCH ×3 (14:50→20:26)
[2017-10-13] MEDS: CEFEPIME INJ 2,000 MG in SODIUM CHLORIDE 0.9% INJ 100 ML IV SCH (16:02)
[2017-10-13 17:50] LABS: BICARBONATE 25.7 MEQ/L (21.0-32.0); MAGNESIUM 1.6 MG/DL (1.5-2.5); POTASSIUM 4.8 MEQ/L (3.5-5.1)
[2017-10-13] MEDS: fentaNYL DRIP 250 ML IV PRN (19:59)
[2017-10-13] MEDS: RESP: BUDESONIDE 0.5 MG/2 ML NEB NEB SCH (20:12)
[2017-10-13] MEDS: CHLORHEXIDINE 0.12% (ORAL KIT) 15 ML CUP MT SCH (20:26)
[2017-10-13] MEDS: MIDAZOLAM 100 MG/100 ML INJ 100 ML IV PRN (22:00)
[2017-10-14] VITALS (28 sets, daily range): BP systolic 105–153; BP diastolic 72–91; PULSE 61–107; RESP 30–126; TEMP 97.5–98.6; O2SAT 95–100
[2017-10-14] MEDS: RESP: ALBUTEROL 2.5 MG/IPRATROPIUM 0.5 MG NEB (SCH) INH ×7 (00:16→23:38)
[2017-10-14] MEDS: ARTIFICIAL TEARS OPTH SOLN 15 ML BTL EACH EYE SCH ×4 (00:26→21:46)
[2017-10-14] MEDS: CEFEPIME INJ 2,000 MG in SODIUM CHLORIDE 0.9% INJ 100 ML IV SCH ×3 (00:32→15:02)
[2017-10-14] MEDS: PROPOFOL 1000 MG/100 ML INJ 100 ML IV PRN ×3 (01:38→16:34)
[2017-10-14] MEDS: CHLORHEXIDINE GLUCONATE 2 % 1 PACK (2 CLOTHS) TOP SCH (03:55)
[2017-10-14 04:40] LABS: AUTOMATED NEUTROPHIL # 3.7 TH/MM3 (1.8-7.7); BASOPHIL % 0.1 % (0.0-2.0); HEMATOCRIT 26.5 % (39.0-51.0); HEMO FLAGS DIFF FINAL; LYMPH % 8.6 % (9.0-44.0); LYMPHOCYTE # 0.4 TH/MM3 (1.0-4.8); MEAN CORPUSCULAR HEMOGLOBIN 34.9 PG (27.0-34.0); MEAN CORPUSCULAR HGB CONC 33.5 % (32.0-36.0); MONO % 4.8 % (0.0-8.0); NEUT % 86.5 % (16.0-70.0); PLATELET COUNT 289 TH/MM3 (150-450); RED BLOOD COUNT 2.55 MIL/MM3 (4.50-5.90); RED CELL DISTRIBUTION WIDTH 14.8 % (11.6-17.2); WHITE BLOOD COUNT 4.2 TH/MM3 (4.0-11.0)
[2017-10-14 04:59] LABS: APTT (PATIENT) 32.3 SEC (24.3-30.1); PROTHROMBIN TIME - PATIENT 9.9 SEC (9.8-11.6)
[2017-10-14 05:02] LABS: ALT (GPT) 19 U/L (12-78); AST (GOT) 15 U/L (15-37); BLOOD UREA NITROGEN 12 MG/DL (7-18); GLOMERULAR FILTRATION RATE 144 ML/MIN (>89); MAGNESIUM 1.8 MG/DL (1.5-2.5)
[2017-10-14 05:03] LABS: ALKALINE PHOSPHATASE 72 U/L (45-117); ANION GAP 6 MEQ/L (5-15); BICARBONATE 26.2 MEQ/L (21.0-32.0); CHLORIDE 106 MEQ/L (98-107); POTASSIUM 3.8 MEQ/L (3.5-5.1); SODIUM (NA) 138 MEQ/L (136-145); TOTAL BILIRUBIN ADULT 0.3 MG/DL (0.2-1.0)
--- NOTE | 2017-10-14 05:27 | RADRPT ---
EXAM DATE/TIME: 10/14/2017 04:11 [facility] COMPARISON: CT THORAX W/O CONTRAST, December 22, 2016, 8:17. CHEST SINGLE AP, October 13, 2017, 6:29. INDICATIONS : Shortness of breath, possible pulmonary disease. MEDICAL HISTORY : Chronic obstructive pulmonary disease. Hypertension Gastroesophageal reflux disease. SURGICAL HISTORY : None. ENCOUNTER: Subsequent ACUITY: 2 days PAIN SCORE: Non-responsive. LOCATION: Bilateral chest FINDINGS: Portable AP view of the chest demonstrates a normal-sized cardiac silhouette. ETT remains present. Th ere is a stable left hilar opacity and streaky linear opacity at the left lung base. No pneumothorax or definite pleural effusion is identified. CONCLUSION: Stable chest x-ray with left lung/perihilar opacity. Ed Abebe MD on October 14, 2017 at 5:24 Board Certified Radiologist. This report was verified electronically.
[2017-10-14] MEDS: SODIUM CHLOR 0.9% 1000 ML INJ 1,000 ML IV SCH ×4 (05:36→21:43)
[2017-10-14] MEDS: methylPREDNISolone SOD SUCC 40 MG/1 ML VIAL IV PUSH SCH ×3 (05:44→21:46)
[2017-10-14] MEDS: INSULIN NovoLIN REGULAR SUPPLEMENTAL SCALE SQ SCH ×4 (05:52→18:00)
[2017-10-14] MEDS: fentaNYL DRIP 250 ML IV PRN (06:35)
[2017-10-14] MEDS: RESP: BUDESONIDE 0.5 MG/2 ML NEB NEB SCH ×2 (08:33→20:08)
[2017-10-14] MEDS: HEPARIN SODIUM - SQ 10,000 UNITS/ML VIAL SQ SCH ×2 (09:46→20:31)
[2017-10-14] MEDS: FAMOTIDINE 20 MG/2 ML VIAL IV PUSH SCH ×2 (09:47→20:30)
[2017-10-14] MEDS: AZITHROMYCIN INJ 500 MG in SODIUM CHLOR 0.9% 250 ML INJ 250 ML IV SCH (09:47)
[2017-10-14] MEDS: SODIUM CHLORIDE 0.9% FLUSH 10 ML FLUSH IV FLUSH SCH ×2 (09:47→20:30)
[2017-10-14] MEDS: CHLORHEXIDINE 0.12% (ORAL KIT) 15 ML CUP MT SCH ×2 (09:50→19:32)
[2017-10-14] MEDS: DOCUSATE SODIUM 50 MG/SENNA 8.6 MG TAB PO SCH ×3 (17:04→21:00)
[2017-10-14] MEDS: MULTIVITAMIN TAB PO SCH (17:04)
--- NOTE | 2017-10-14 17:45 | HHI.CCPN ---
Subjective Remarks/Hospital Course This is a 62-year-old male. Date of admission 10/13/2017. Past records includes oxygen-dependent COPD, hypertension, gastroesophageal reflux disease. Patient since his last admission here is had a lung biopsy which resulted pneumothorax at the [place] in [place]. He was recently treated as an outpatient for pneumonia with levofloxacin and a prednisone taper along with scheduled DuoNeb's at home. He presents to [facility] after being orotracheally intubated in the field 7.0 ET tube due to acute hypoxic respiratory failure. EMS was called due to increasing shortness of breath. Saturations were in the 60s at his residence. According to , patient was being treated for pneumonia Hospital workup includes lactic acid of 5.0. White blood cell count within normal limits. Patient received 2 L normal saline in the interim. Hemodynamically stable currently. Sedated on propofol and fentanyl drips. Subjective: 10/14: No acute events overnight. Into no infusion discontinued the patient tolerated CPAP trials for approximately 2 hours today. Objective Vital Signs Date Time Temp Pulse Resp B/P (MAP) Pulse Ox O2 Delivery O2 Flow Rate FiO2 10/14/17 16:44 100 40 10/14/17 16:00 98.6 64 75 124/80 (95) 10/13/17 09:58 Ventilator Intake and Output 10/14/17 10/14/17 10/15/17 08:00 16:00 00:00 Intake Total 1607.2 ml 192.2 ml Output Total 425 ml Balance 1182.2 ml 192.2 ml Result Diagram: 10/14/17 0356 10/14/17 0356 Imaging Last Impressions Chest X-Ray 10/13/17 0623 Signed Impressions: Service Date/Time: Friday, October 13, 2017 06:29 - CONCLUSION: 1. Minimal left basilar infiltrate. 2. Endotracheal tube tip 7 cm above the laura. Artemio Calix MD Objective Remarks GENERAL: 62-year-old male, resting in bed orotracheally intubated and sedated SKIN: Warm and dry. No rash HEAD: Atraumatic. Normocephalic. EYES: Pupils equal and round about 2 mm bilaterally and reactive. No scleral icterus. No injection or drainage. ENT: No nasal bleeding or discharge. Mucous membranes pink and moist. NECK: Trachea midline. No JVD. CARDIOVASCULAR: Tachycardic, RR. S1, S2. No S4. Without murmur, clicks, gallops or rubs RESPIRATORY: No accessory muscle use. Clear to auscultation. Breath sounds equal bilaterally. GASTROINTESTINAL: Abdomen soft, non-tender, nondistended. Hypoactive bowel sounds are appreciated MUSCULOSKELETAL: Extremities without significant peripheral edema. No obvious deformities. NEUROLOGICAL: GCS 6T Withdraws to pain in all 4 extremities. Currently not following commands. Sedated on propofol A/P Assessment and Plan Neuro/Psych: History of EtOH use Insomnia Patient is currently on propofol at 20 mics grams per kilogram per minute and fentanyl drip at 50 mcg an hour for sedation/analgesia while intubated RA SS -2 Daily sedation vacation Holding temazepam 30 mg by mouth by home medication for insomnia Continue vitamin along with B complex vitamin CV: Hypertension Pulmonary hypertension secondary to COPD Lactic acidosis Currently on normal saline at 84 cc an hour Holding diltiazem 240 mg daily and lisinopril 10 mg daily with borderline blood pressures Serial lactates until clear 2-D echocardiogram 12/29 revealed ejection fraction 55-60%. Mild MR/TR. Pulmonary arterial pressure 64 mmHg Resp: Acute hypoxic hypercapnic respiratory failure Community acquired pneumonia COPD Gold class D Chronic respiratory failure 2 L oxygen dependent Tobaccoism PRVC 16/500/0.9/5/40 Ventilator bundle Albuterol/ipratropium aerosols every 4 hours with albuterol aerosols every 2 hours. Dyspnea Methylprednisolone 40 mg IV every 8 hours Added budesonide 0.5/2 1 inhalation twice a day Spontaneous breathing trials when clinically indicated Chest x-ray to be reordered in a.m. 10/14 Patient is on albuterol/ipratropium aerosols every 4 hours while awake in tiotropium 18 mg inhaled daily at home. Recently on prednisone taper GI: Gastroesophageal reflux disease OGT to [facility] Famotidine for GI prophylaxis GI. Patient is on omeprazole 20 mg daily for gastroesophageal reflux disease at home. Docusate sodium/senna 1 tablet twice a day for bowel regimen : Mohr catheter has been placed for accurate I's and O's in a critically ill patient Endo: Sliding-scale insulin with Accu-Cheks every 6 hours to maintain euglycemia Novulin R low regimen Renal: Mixed respiratory acidosis and anion gap metabolic acidosis Creatinine currently within normal limits Monitor urine output Accurate I's and O's Status post 2 L normal saline in ED. Currently on normal saline at 84 cc an hour. Recheck lactate in a.m. Heme: Macrocytic anemia Thrombocytosis Elevated PTT Monitor CBC daily. Follow trends. Does not be transfusion thresholds at this time ID: CAP Patient previously treated with levofloxacin as an outpatient Currently on cefepime and azithromycin day #1 On 10/13/Blood cultures 2, urine culture, sputum, influenza, urine Legionella and pneumococcal antigens all ordered MSK: PT evaluate and treat range of motion FEN: Hyponatremia Replace electrolytes as clinically indicated Access - Utilize peripheral IV. Central line if indicated Prophylaxis - GI -famotidine - DVT -SCD/heparin subcutaneous Dispo: Level 3 Discussed with SQUIRREL MAN at bedside Physician Nakia Maldonado MD Oct 14, 2017 17:45
--- NOTE | 2017-10-14 23:01 | EKG ---
Date Performed: 10/13/2017 Time Performed: 06:30:17 PTAGE: 62 years EKG: SINUS TACHYCARDIA ARM LEADS REVERSED ABNORMAL RHYTHM ECG PREVIOUS TRACING : 12/20/2016 19.21 Compared to prior tracing no significant change DOCTOR: Ted Dorsey Interpretating Date/Time 10/14/2017 23:00:48
[2017-10-15] VITALS (22 sets, daily range): BP systolic 137–180; BP diastolic 80–103; PULSE 64–122; RESP 47–104; TEMP 97.5–98.4; O2SAT 100
[2017-10-15] MEDS: CEFEPIME INJ 2,000 MG in SODIUM CHLORIDE 0.9% INJ 100 ML IV SCH ×3 (00:33→16:36)
[2017-10-15] MEDS: hydrALAZINE HCL 20 MG/ML VIAL IV PUSH PRN ×2 (00:33→20:19)
[2017-10-15] MEDS: MIDAZOLAM 100 MG/100 ML INJ 100 ML IV PRN ×2 (01:47→19:51)
[2017-10-15] MEDS: PROPOFOL 1000 MG/100 ML INJ 100 ML IV PRN ×4 (03:07→23:06)
[2017-10-15] MEDS: CHLORHEXIDINE GLUCONATE 2 % 1 PACK (2 CLOTHS) TOP SCH (04:00)
[2017-10-15] MEDS: RESP: ALBUTEROL 2.5 MG/IPRATROPIUM 0.5 MG NEB (SCH) INH ×5 (04:11→19:57)
[2017-10-15] MEDS: ARTIFICIAL TEARS OPTH SOLN 15 ML BTL EACH EYE SCH ×3 (05:11→19:50)
[2017-10-15] MEDS: methylPREDNISolone SOD SUCC 40 MG/1 ML VIAL IV PUSH SCH ×3 (05:11→19:49)
[2017-10-15] MEDS: INSULIN NovoLIN REGULAR SUPPLEMENTAL SCALE SQ SCH ×4 (05:53→17:47)
[2017-10-15] MEDS: FAMOTIDINE 20 MG/2 ML VIAL IV PUSH SCH ×2 (07:49→19:48)
[2017-10-15] MEDS: CHLORHEXIDINE 0.12% (ORAL KIT) 15 ML CUP MT SCH ×2 (07:50→19:47)
[2017-10-15] MEDS: SODIUM CHLORIDE 0.9% FLUSH 10 ML FLUSH IV FLUSH PRN (07:50)
[2017-10-15] MEDS: SODIUM CHLORIDE 0.9% FLUSH 10 ML FLUSH IV FLUSH SCH ×2 (07:50→19:48)
[2017-10-15] MEDS: HEPARIN SODIUM - SQ 10,000 UNITS/ML VIAL SQ SCH ×2 (07:51→19:49)
[2017-10-15] MEDS: AZITHROMYCIN INJ 500 MG in SODIUM CHLOR 0.9% 250 ML INJ 250 ML IV SCH (07:51)
[2017-10-15] MEDS: DOCUSATE SODIUM 50 MG/SENNA 8.6 MG TAB PO SCH ×2 (09:00→19:49)
[2017-10-15] MEDS: MULTIVITAMIN TAB PO SCH (09:00)
[2017-10-15] MEDS: SODIUM CHLOR 0.9% 1000 ML INJ 1,000 ML IV SCH ×2 (10:01→22:39)
[2017-10-15] MEDS: RESP: BUDESONIDE 0.5 MG/2 ML NEB NEB SCH ×2 (10:26→19:57)
--- NOTE | 2017-10-15 16:09 | ECHRPT ---
Indication: heart failure CONCLUSIONS The left ventricular systolic function is normal with an estimated ejection fraction in the range of 55-60%. Normal left ventricular size. Wall thickness is normal. No regional wall motion abnormalities are present. Aortic valve sclerosis is present. There is trace tricuspid valve regurgitation. The estimated pulmonary arterial pressure is 50 mmHg. The pulmonary valve is not well visualized. The inferior vena cava is dilated. BP: 157 / 80 HR: 105 Rhythm: Sinus MEASUREMENTS (Male / Female) Normal Values Technical Quality:Fair 2D ECHO LV Diastolic Diameter PLAX 4.2 cm 4.2 - 5.9 / 3.9 - 5.3 cm LV Systolic Diameter PLAX 3.1 cm IVS Diastolic Thickness 1.0 cm 0.6 - 1.0 / 0.6 - 0.9 cm LVPW Diastolic Thickness 1.0 cm 0.6 - 1.0 / 0.6 - 0.9 cm LV Relative Wall Thickness 0.5 LVOT Diameter 2.0 cm LA Systolic Diameter LX 2.8 cm 3.0 - 4.0 / 2.7 - 3.8 cm LV Ejection Fraction MOD 4C 58.7 % LV Cardiac Index MOD 4C 2715.0 cm/minm LV Ejection Fraction 4C AL 61.8 % LV Cardiac Index 4C AL 2949.4 cm/minm M-MODE Aortic Root Diameter MM 3.0 cm AV Cusp Separation MM 1.8 cm DOPPLER AV Peak Velocity 137.0 cm/s AV Peak Gradient 7.5 mmHg LVOT Peak Velocity 113.0 cm/s LVOT Peak Gradient 5.1 mmHg AV Area Cont Eq pk 2.6 cm MV Area PHT 5.1 cm Mitral E Point Velocity 136.0 cm/s Mitral A Point Velocity 98.2 cm/s Mitral E to A Ratio 1.4 TR Peak Velocity 354.0 cm/s TR Peak Gradient 50.1 mmHg PV Peak Velocity 88.2 cm/s PV Peak Gradient 3.1 mmHg FINDINGS LEFT VENTRICLE The left ventricular systolic function is normal with an estimated ejection fraction in the range of 55-60%. Normal left ventricular size. Wall thickness is normal. No regional wall motion abnormalities are present. RIGHT VENTRICLE Normal right ventricular size and systolic function. LEFT ATRIUM The left atrial size is normal. RIGHT ATRIUM The right atrial size is normal. ATRIAL SEPTUM Normal atrial septal thickness without atrial level shunting by limited color doppler interrogation. AORTA The aortic root and proximal ascending aorta are normal in size on limited imaging. MITRAL VALVE Structurally normal mitral valve. No mitral valve stenosis or regurgitation. AORTIC VALVE Trileaflet aortic valve. No aortic valve stenosis or regurgitation. Aortic valve sclerosis is present. TRICUSPID VALVE Structurally normal tricuspid valve. There is trace tricuspid valve regurgitation. The estimated pulmonary arterial pressure is 50 mmHg. PULMONARY VALVE The pulmonary valve is not well visualized. VESSELS The inferior vena cava is dilated. PERICARDIUM No pericardial effusion. Philippe Hemphill MD (Electronically Signed) Final Date:15 October 2017 16:08
--- NOTE | 2017-10-15 16:27 | RADRPT ---
EXAM DATE/TIME: 10/15/2017 15:45 [facility] COMPARISON: ABDOMEN KUB ONLY, October 15, 2017, 15:58. INDICATIONS : Dobhoff initial placement. MEDICAL HISTORY : Chronic obstructive pulmonary disease. Hypertension Gastroesophageal reflux disease. SURGICAL HISTORY : None. ENCOUNTER: Initial ACUITY: 1 day PAIN SCORE: Non-responsive. LOCATION: Left upper quadrant abdomen FINDINGS: Single oblique view of the abdomen demonstrates feeding tube distal tip in the proximal stomach. Ther e is mild parenchymal opacity at the left lung base. Nonobstructive bowel gas pattern is present. Oth erwise, there is no significant interval change. CONCLUSION: The distal tip of the feeding tube is in the proximal stomach. Ed Abebe MD on October 15, 2017 at 16:24 Board Certified Radiologist. This report was verified electronically.
--- NOTE | 2017-10-15 16:28 | RADRPT ---
EXAM DATE/TIME: 10/15/2017 15:58 [facility] COMPARISON: ABDOMEN SINGLE VIEW, October 15, 2017, 15:45. INDICATIONS : Dobhoff adjustment. MEDICAL HISTORY : Chronic obstructive pulmonary disease. Hypertension Gastroesophageal reflux disease. SURGICAL HISTORY : None. ENCOUNTER: Subsequent ACUITY: 1 day PAIN SCORE: Non-responsive. LOCATION: Left upper quadrant abdomen FINDINGS: Single view of the abdomen demonstrates feeding tube distal tip in the proximal stomach, unchanged fr om the prior study. Otherwise, no significant interval change. CONCLUSION: Stable position of feeding tube in the proximal stomach. Ed Abebe MD on October 15, 2017 at 16:25 Board Certified Radiologist. This report was verified electronically.
[2017-10-15 17:12] LABS: BLOOD GAS BASE EXCESS 3.7 mmol/L (-2-2); BLOOD GAS HCO3 28 mmol/L (22-26); BLOOD GAS O2 HGB SATURATION 96 % (90-100); BLOOD GAS OXYGEN CONTENT 11.4 Vol % (12.0-20.0); BLOOD GAS PCO2 42 mmHg (38-42); BLOOD GAS PO2 102 mmHg (61-120); BLOOD GAS TOTAL HGB 8.3 G/DL (12.0-16.0); CRITICAL VALUE NO; OXYGEN DEVICE VENTILATOR; TEMP CORR TO 98.6
[2017-10-15 17:13] LABS: DRAW SITE LT BRACHIAL; FIO2 40 %; NUMBER OF ARTERIAL PUNCTURES 1; STAT NO; ULNAR PULSE PRESENT
--- NOTE | 2017-10-15 17:17 | HHI.CCPN ---
Subjective Remarks/Hospital Course This is a 62-year-old male. Date of admission 10/13/2017. Past records includes oxygen-dependent COPD, hypertension, gastroesophageal reflux disease. Patient since his last admission here is had a lung biopsy which resulted pneumothorax at the [place] in [place]. He was recently treated as an outpatient for pneumonia with levofloxacin and a prednisone taper along with scheduled DuoNeb's at home. He presents to [facility] after being orotracheally intubated in the field 7.0 ET tube due to acute hypoxic respiratory failure. EMS was called due to increasing shortness of breath. Saturations were in the 60s at his residence. According to , patient was being treated for pneumonia Hospital workup includes lactic acid of 5.0. White blood cell count within normal limits. Patient received 2 L normal saline in the interim. Hemodynamically stable currently. Sedated on propofol and fentanyl drips. Subjective: 10/14: No acute events overnight. Fentanyl infusion discontinued the patient tolerated CPAP trials for approximately 2 hours today. 10/15: Patient tolerated CPAP trials for approximately 3 hours today, NG tube dislodge repeat placement of Dobbhoff tube pending. Objective Vital Signs Date Time Temp Pulse Resp B/P (MAP) Pulse Ox O2 Delivery O2 Flow Rate FiO2 10/15/17 16:06 100 40 10/15/17 16:00 98.1 77 63 162/97 (118) 10/13/17 09:58 Ventilator Intake and Output 10/15/17 10/15/17 10/16/17 08:00 16:00 00:00 Intake Total 946.0 ml 856 ml Output Total 950 ml 1000 ml Balance -4.0 ml -144 ml Result Diagram: 10/14/17 0356 10/14/17 0356 Other Results Laboratory Tests Test 10/15/17 17:00 Imaging Last Impressions Chest X-Ray 10/13/17 0613 Signed Impressions: Service Date/Time: Friday, October 13, 2017 06:29 - CONCLUSION: 1. Minimal left basilar infiltrate. 2. Endotracheal tube tip 7 cm above the laura. Artemio Calix MD Objective Remarks GENERAL: 62-year-old male, resting in bed orotracheally intubated and sedated SKIN: Warm and dry. No rash HEAD: Atraumatic. Normocephalic. EYES: Pupils equal and round about 2 mm bilaterally and reactive. No scleral icterus. No injection or drainage. ENT: No nasal bleeding or discharge. Mucous membranes pink and moist. NECK: Trachea midline. No JVD. CARDIOVASCULAR: Tachycardic, RR. S1, S2. No S4. Without murmur, clicks, gallops or rubs RESPIRATORY: No accessory muscle use. Clear to auscultation. Breath sounds equal bilaterally. GASTROINTESTINAL: Abdomen soft, non-tender, nondistended. Hypoactive bowel sounds are appreciated MUSCULOSKELETAL: Extremities without significant peripheral edema. No obvious deformities. NEUROLOGICAL: GCS 6T Withdraws to pain in all 4 extremities. Currently not following commands. Sedated on Propofol and Versed A/P Assessment and Plan Neuro/Psych: History of EtOH use Insomnia Patient is currently on propofol at 50 mcgs grams per kilogram per minute and Versed drip at 8 mg an hour for sedation/analgesia while intubated RASS -2 Daily sedation vacation Holding temazepam 30 mg by mouth by home medication for insomnia Continue vitamin along with B complex vitamin CV: Hypertension Pulmonary hypertension secondary to COPD Lactic acidosis Currently on normal saline at 84 cc an hour Holding diltiazem 240 mg daily and lisinopril 10 mg daily with borderline blood pressures Serial lactates until clear 2-D echocardiogram 12/29 revealed ejection fraction 55-60%. Mild MR/TR. Pulmonary arterial pressure 64 mmHg Resp: Acute hypoxic hypercapnic respiratory failure Community acquired pneumonia COPD Gold class D Chronic respiratory failure 2 L oxygen dependent Tobaccoism PRVC 16/500/0.9/5/40 Ventilator bundle Albuterol/ipratropium aerosols every 4 hours with albuterol aerosols every 2 hours. Dyspnea Methylprednisolone 40 mg IV every 8 hours Added budesonide 0.5/2 1 inhalation twice a day Spontaneous breathing trials when clinically indicated Patient is on albuterol/ipratropium aerosols every 4 hours while awake in tiotropium 18 mg inhaled daily at home. Recently on prednisone taper GI: Gastroesophageal reflux disease Replace Dobhoff tube. F/U KUB to confirm placement Famotidine for GI prophylaxis GI. Patient is on omeprazole 20 mg daily for gastroesophageal reflux disease at home. Docusate sodium/senna 1 tablet twice a day for bowel regimen : Mohr catheter has been placed for accurate I's and O's in a critically ill patient Endo: Sliding-scale insulin with Accu-Cheks every 6 hours to maintain euglycemia Novulin R low regimen Renal: Mixed respiratory acidosis and anion gap metabolic acidosis Creatinine currently within normal limits Monitor urine output Accurate I's and O's Status post 2 L normal saline in ED. Currently on normal saline at 84 cc an hour. Heme: Macrocytic anemia Thrombocytosis Elevated PTT Monitor CBC daily. Follow trends. Does not be transfusion thresholds at this time ID: CAP Patient previously treated with levofloxacin as an outpatient Currently on cefepime and azithromycin day #1 On 10/13/Blood cultures 2, urine culture, sputum, influenza, urine Legionella and pneumococcal antigens all ordered MSK: PT evaluate and treat range of motion FEN: Hyponatremia Replace electrolytes as clinically indicated Access - Utilize peripheral IV. Central line if indicated Prophylaxis - GI -famotidine - DVT -SCD/heparin subcutaneous Dispo: Level 3 Discussed with SOURCING ANALYST at bedside (Ila) Physician Nakia Maldonado MD Oct 15, 2017 17:17
[2017-10-15] MEDS: METOCLOPRAMIDE HCL 10 MG/2 ML VIAL IV SCH (17:44)
[2017-10-16] VITALS (27 sets, daily range): BP systolic 122–175; BP diastolic 68–90; PULSE 66–109; RESP 7–49; TEMP 97.4–97.7; O2SAT 99–100
[2017-10-16] MEDS: CEFEPIME INJ 2,000 MG in SODIUM CHLORIDE 0.9% INJ 100 ML IV SCH ×3 (00:15→16:46)
[2017-10-16] MEDS: RESP: ALBUTEROL 2.5 MG/IPRATROPIUM 0.5 MG NEB (SCH) INH ×7 (00:34→23:37)
[2017-10-16] MEDS: METOCLOPRAMIDE HCL 10 MG/2 ML VIAL IV SCH ×2 (02:08→09:08)
[2017-10-16] MEDS: PROPOFOL 1000 MG/100 ML INJ 100 ML IV PRN ×4 (03:16→21:55)
[2017-10-16] MEDS: CHLORHEXIDINE GLUCONATE 2 % 1 PACK (2 CLOTHS) TOP SCH (04:00)
[2017-10-16] MEDS: INSULIN NovoLIN REGULAR SUPPLEMENTAL SCALE SQ SCH ×4 (06:00→18:00)
--- NOTE | 2017-10-16 06:05 | RADRPT ---
EXAM DATE/TIME: 10/16/2017 04:33 [facility] COMPARISON: CHEST SINGLE AP, December 24, 2016, 6:12. CHEST SINGLE AP, October 13, 2017, 6:29. CHEST SINGLE AP , October 14, 2017, 4:11. INDICATIONS : Respiratory disease. MEDICAL HISTORY : Chronic obstructive pulmonary disease. Hypertension Gastroesophageal reflux disease. SURGICAL HISTORY : None. ENCOUNTER: Subsequent ACUITY: 1 week PAIN SCORE: 0/10 LOCATION: Bilateral chest FINDINGS: A single view of the chest demonstrates the lungs to be symmetrically hyperinflated without evidence of a new mass, infiltrate or effusion. There is cephalization and apparent scarring in the left hilar region. This does not appear significantly changed. The cardiomediastinal contours are unremarkable. Osseous structures are intact. CONCLUSION: Hyperinflation and underlying lung disease with stable apparent scarring in the left perihilar region . Moiz Cheng MD on October 16, 2017 at 6:02 Board Certified Radiologist. This report was verified electronically.
--- NOTE | 2017-10-16 06:09 | RADRPT ---
EXAM DATE/TIME: 10/16/2017 04:29 [facility] COMPARISON: ABDOMEN KUB ONLY, October 15, 2017, 15:58. INDICATIONS : Dobbhoff placement. MEDICAL HISTORY : Chronic obstructive pulmonary disease. Hypertension Gastroesophageal reflux disease. SURGICAL HISTORY : None. ENCOUNTER: Subsequent ACUITY: 1 week PAIN SCORE: 0/10 LOCATION: Bilateral chest FINDINGS: Supine view of the abdomen was performed. The abdominal bowel gas pattern is normal. No abnormal ma sses, calcifications, or organomegaly is seen. The osseous structures are unremarkable. There is bee n interval placement of a Dobbhoff type feeding tube with the tip projected over the proximal stomach . CONCLUSION: Interval placement of Dobbhoff type feeding tube with tip projected over the proximal stomach. Moiz Cheng MD on October 16, 2017 at 6:06 Board Certified Radiologist. This report was verified electronically.
[2017-10-16] MEDS: methylPREDNISolone SOD SUCC 40 MG/1 ML VIAL IV PUSH SCH ×3 (06:19→20:21)
[2017-10-16] MEDS: ARTIFICIAL TEARS OPTH SOLN 15 ML BTL EACH EYE SCH ×3 (06:22→20:21)
[2017-10-16] MEDS: RESP: BUDESONIDE 0.5 MG/2 ML NEB NEB SCH ×2 (07:44→19:58)
[2017-10-16] MEDS: MIDAZOLAM 100 MG/100 ML INJ 100 ML IV PRN (07:51)
[2017-10-16] MEDS: FAMOTIDINE 20 MG/2 ML VIAL IV PUSH SCH ×2 (09:07→20:21)
[2017-10-16] MEDS: SODIUM CHLORIDE 0.9% FLUSH 10 ML FLUSH IV FLUSH PRN (09:07)
[2017-10-16] MEDS: CHLORHEXIDINE 0.12% (ORAL KIT) 15 ML CUP MT SCH ×2 (09:07→20:20)
[2017-10-16] MEDS: DOCUSATE SODIUM 50 MG/SENNA 8.6 MG TAB PO SCH ×2 (09:07→20:21)
[2017-10-16] MEDS: MULTIVITAMIN TAB PO SCH (09:07)
[2017-10-16] MEDS: SODIUM CHLORIDE 0.9% FLUSH 10 ML FLUSH IV FLUSH SCH ×2 (09:07→20:20)
[2017-10-16] MEDS: HEPARIN SODIUM - SQ 10,000 UNITS/ML VIAL SQ SCH ×2 (09:08→20:21)
[2017-10-16] MEDS: SODIUM CHLOR 0.9% 1000 ML INJ 1,000 ML IV SCH ×2 (11:18→20:20)
[2017-10-16] MEDS: AZITHROMYCIN INJ 500 MG in SODIUM CHLOR 0.9% 250 ML INJ 250 ML IV SCH (11:18)
[2017-10-16 13:38] LABS: AUTOMATED NEUTROPHIL # 4.3 TH/MM3 (1.8-7.7); BASOPHIL % 0.3 % (0.0-2.0); EOSINOPHIL % 0.8 % (0.0-4.0); HEMATOCRIT 27.8 % (39.0-51.0); HEMO FLAGS AUTO DIFF; LYMPH % 7.3 % (9.0-44.0); LYMPHOCYTE # 0.4 TH/MM3 (1.0-4.8); MEAN CELL VOLUME 102.6 FL (80.0-100.0); MEAN CORPUSCULAR HEMOGLOBIN 37.3 PG (27.0-34.0); MEAN CORPUSCULAR HGB CONC 36.4 % (32.0-36.0); MONO % 7.7 % (0.0-8.0); NEUT % 83.9 % (16.0-70.0); PLATELET COUNT 285 TH/MM3 (150-450); RED BLOOD COUNT 2.71 MIL/MM3 (4.50-5.90); RED CELL DISTRIBUTION WIDTH 14.8 % (11.6-17.2); WHITE BLOOD COUNT 5.1 TH/MM3 (4.0-11.0)
[2017-10-16 13:59] LABS: BICARBONATE 30.5 MEQ/L (21.0-32.0); MAGNESIUM 1.9 MG/DL (1.5-2.5)
[2017-10-16 14:01] LABS: POTASSIUM 4.7 MEQ/L (3.5-5.1)
[2017-10-16 14:06] LABS: NEUTROPHIL # MANUAL DIFF 4.3 TH/MM3 (1.8-7.7); PLATELET ESTIMATE SMEAR NORMAL (NORMAL); PLATELET MORPHOLOGY NORMAL (NORMAL); POLYS (SEG NEUTROPHILS) 85 % (16-70); SCAN/DIFF FINAL DIFF MANUAL; WBC DIFF SAMPLE 100
--- NOTE | 2017-10-16 17:42 | HHI.CCPN ---
Subjective Remarks/Hospital Course This is a 62-year-old male. Date of admission 10/13/2017. Past records includes oxygen-dependent COPD, hypertension, gastroesophageal reflux disease. Patient since his last admission here is had a lung biopsy which resulted pneumothorax at the [place] in [place]. He was recently treated as an outpatient for pneumonia with levofloxacin and a prednisone taper along with scheduled DuoNeb's at home. He presents to [facility] after being orotracheally intubated in the field 7.0 ET tube due to acute hypoxic respiratory failure. EMS was called due to increasing shortness of breath. Saturations were in the 60s at his residence. According to , patient was being treated for pneumonia Hospital workup includes lactic acid of 5.0. White blood cell count within normal limits. Patient received 2 L normal saline in the interim. Hemodynamically stable currently. Sedated on propofol and fentanyl drips. Subjective: 10/14: No acute events overnight. Fentanyl infusion discontinued the patient tolerated CPAP trials for approximately 2 hours today. 10/15: Patient tolerated CPAP trials for approximately 3 hours today, NG tube dislodge repeat placement of Dobbhoff tube pending. 10/16: Afebrile. Patient tolerated CPAP trials approximately 6 hours today. Dobbhoff tube in place tube feeds initiated. Objective Vital Signs Date Time Temp Pulse Resp B/P (MAP) Pulse Ox O2 Delivery O2 Flow Rate FiO2 10/16/17 16:15 40 10/16/17 16:00 97.4 109 19 167/83 (111) 100 10/13/17 09:58 Ventilator Intake and Output 10/16/17 10/16/17 10/17/17 08:00 16:00 00:00 Intake Total 771.1 ml 417 ml Output Total 1200 ml Balance -428.9 ml 417 ml Result Diagram: 10/16/17 1311 10/16/17 1311 Imaging Last Impressions Chest X-Ray 10/13/17 0644 Signed Impressions: Service Date/Time: Friday, October 13, 2017 06:29 - CONCLUSION: 1. Minimal left basilar infiltrate. 2. Endotracheal tube tip 7 cm above the laura. Artemio Calix MD Objective Remarks GENERAL: 62-year-old male, resting in bed orotracheally intubated and sedated SKIN: Warm and dry. No rash HEAD: Atraumatic. Normocephalic. EYES: Pupils equal and round about 2 mm bilaterally and reactive. No scleral icterus. No injection or drainage. ENT: No nasal bleeding or discharge. Mucous membranes pink and moist. NECK: Trachea midline. No JVD. CARDIOVASCULAR: Tachycardic, RR. S1, S2. No S4. Without murmur, clicks, gallops or rubs RESPIRATORY: No accessory muscle use. Clear to auscultation. Breath sounds equal bilaterally. GASTROINTESTINAL: Abdomen soft, non-tender, nondistended. Hypoactive bowel sounds are appreciated MUSCULOSKELETAL: Extremities without significant peripheral edema. No obvious deformities. NEUROLOGICAL: GCS 6T Withdraws to pain in all 4 extremities. Currently not following commands. Sedated on Propofol infusion A/P Assessment and Plan Neuro/Psych: History of EtOH use Insomnia Patient is currently on propofol at 50 mcgs grams per kilogram per minute for sedation/analgesia while intubated, Versed discontinued Will initiate Precedex infusion for facilitation of CPAP trials RASS -2 Daily sedation vacation Holding temazepam 30 mg by mouth by home medication for insomnia Continue vitamin along with B complex vitamin CV: Hypertension Pulmonary hypertension secondary to COPD Lactic acidosis Currently on normal saline at 84 cc an hour Holding diltiazem 240 mg daily and lisinopril 10 mg daily with borderline blood pressures Serial lactates until clear 2-D echocardiogram 12/29 revealed ejection fraction 55-60%. Mild MR/TR. Pulmonary arterial pressure 64 mmHg Resp: Acute hypoxic hypercapnic respiratory failure Community acquired pneumonia COPD Gold class D Chronic respiratory failure 2 L oxygen dependent Tobaccoism PRVC 16/500/0.9/5/40 Ventilator bundle Albuterol/ipratropium aerosols every 4 hours with albuterol aerosols every 2 hours. Dyspnea Methylprednisolone 40 mg IV every 8 hours Added budesonide 0.5/2 1 inhalation twice a day Spontaneous breathing trials when clinically indicated Continue CPAP trials daily Patient is on albuterol/ipratropium aerosols every 4 hours while awake in tiotropium 18 mg inhaled daily at home. Recently on prednisone taper GI: Gastroesophageal reflux disease 10/15 Dobhoff tube. Tube feeds initiated Jevity 1.510 cc an hour to advanced to goal rate of 55 cc/hour Famotidine for GI prophylaxis GI. Patient is on omeprazole 20 mg daily for gastroesophageal reflux disease at home. Docusate sodium/senna 1 tablet twice a day for bowel regimen : Mohr catheter has been placed for accurate I's and O's in a critically ill patient Endo: Sliding-scale insulin with Accu-Cheks every 6 hours to maintain euglycemia Novulin R low regimen Renal: Mixed respiratory acidosis and anion gap metabolic acidosis Creatinine currently within normal limits Monitor urine output Accurate I's and O's Status post 2 L normal saline in ED. Currently on normal saline at 84 cc an hour. We'll discontinue upon initiation and toleration of tube feeds Heme: Macrocytic anemia Thrombocytosis Elevated PTT Monitor CBC daily. Follow trends. Does not be transfusion thresholds at this time ID: CAP Patient previously treated with levofloxacin as an outpatient Currently on cefepime and azithromycin day #1 On 10/13/Blood cultures 2, urine culture, sputum, influenza, urine Legionella and pneumococcal antigens all ordered MSK: PT evaluate and treat range of motion FEN: Hyponatremia Replace electrolytes as clinically indicated Access - Utilize peripheral IV. Central line if indicated Prophylaxis - GI -famotidine - DVT -SCD/heparin subcutaneous Dispo: Level 3 Discussed with BEAMER HELPER at bedside (Ila) Physician Nakia Maldonado MD Oct 16, 2017 17:42
[2017-10-16] MEDS: DEXMEDETOMIDINE INJ 200 MCG in SODIUM CHLORIDE 0.9% INJ 50 ML IV PRN (21:56)
[2017-10-16] MEDS: hydrALAZINE HCL 20 MG/ML VIAL IV PUSH PRN (22:20)
[2017-10-17] VITALS (19 sets, daily range): BP systolic 139–191; BP diastolic 65–127; PULSE 63–93; RESP 16–24; TEMP 97.3–98.9; O2SAT 98–100
[2017-10-17] MEDS: DEXMEDETOMIDINE INJ 200 MCG in SODIUM CHLORIDE 0.9% INJ 50 ML IV PRN ×5 (01:46→17:32)
[2017-10-17] MEDS: PROPOFOL 1000 MG/100 ML INJ 100 ML IV PRN ×4 (01:46→17:32)
[2017-10-17] MEDS: CEFEPIME INJ 2,000 MG in SODIUM CHLORIDE 0.9% INJ 100 ML IV SCH ×4 (01:47→23:38)
[2017-10-17] MEDS: RESP: ALBUTEROL 2.5 MG/IPRATROPIUM 0.5 MG NEB (SCH) INH ×3 (03:25→11:12)
[2017-10-17] MEDS: CHLORHEXIDINE GLUCONATE 2 % 1 PACK (2 CLOTHS) TOP SCH (03:27)
[2017-10-17] MEDS: hydrALAZINE HCL 20 MG/ML VIAL IV PUSH PRN ×4 (03:32→20:13)
[2017-10-17] MEDS: methylPREDNISolone SOD SUCC 40 MG/1 ML VIAL IV PUSH SCH ×3 (05:04→20:12)
[2017-10-17] MEDS: INSULIN NovoLIN REGULAR SUPPLEMENTAL SCALE SQ SCH ×5 (05:04→23:38)
[2017-10-17] MEDS: ARTIFICIAL TEARS OPTH SOLN 15 ML BTL EACH EYE SCH ×3 (05:04→20:12)
[2017-10-17] MEDS: AZITHROMYCIN INJ 500 MG in SODIUM CHLOR 0.9% 250 ML INJ 250 ML IV SCH (07:21)
[2017-10-17] MEDS: CHLORHEXIDINE 0.12% (ORAL KIT) 15 ML CUP MT SCH ×2 (07:21→20:11)
[2017-10-17] MEDS: RESP: BUDESONIDE 0.5 MG/2 ML NEB NEB SCH ×2 (07:59→21:55)
[2017-10-17] MEDS: MULTIVITAMIN TAB PO SCH (08:29)
[2017-10-17] MEDS: DOCUSATE SODIUM 50 MG/SENNA 8.6 MG TAB PO SCH ×2 (08:29→20:12)
[2017-10-17] MEDS: SODIUM CHLORIDE 0.9% FLUSH 10 ML FLUSH IV FLUSH SCH ×2 (08:29→20:12)
[2017-10-17] MEDS: FAMOTIDINE 20 MG/2 ML VIAL IV PUSH SCH ×2 (08:29→20:12)
[2017-10-17] MEDS: HEPARIN SODIUM - SQ 10,000 UNITS/ML VIAL SQ SCH ×2 (08:29→20:12)
[2017-10-17] MEDS: SODIUM CHLOR 0.9% 1000 ML INJ 1,000 ML IV SCH ×2 (08:30→20:13)
[2017-10-17] MEDS: LABETALOL HCL 100 MG/20 ML VIAL IV PUSH PRN ×2 (10:06→16:06)
--- NOTE | 2017-10-17 14:24 | RADRPT ---
EXAM DATE/TIME: 10/17/2017 13:22 [facility] COMPARISON: ABDOMEN KUB ONLY, October 16, 2017, 4:29. INDICATIONS : Dobhoff placement. MEDICAL HISTORY : Gastroesophageal reflux disease. Chronic obstructive pulmonary disease. Hypertension. SURGICAL HISTORY : None. ENCOUNTER: Subsequent ACUITY: 4 - 6 days PAIN SCORE: Non-responsive. LOCATION: Bilateral abdomen FINDINGS: Dobbhoff catheter demonstrates a single coil in the stomach and then tracks back into the esophagus. CONCLUSION: Malpositioned Dobbhoff catheter as described. Luis Manuel Estevez MD on October 17, 2017 at 14:21 Board Certified Radiologist. This report was verified electronically.
--- NOTE | 2017-10-17 14:47 | RADRPT ---
EXAM DATE/TIME: 10/17/2017 14:11 [facility] COMPARISON: ABDOMEN SINGLE VIEW, October 15, 2017, 15:45. INDICATIONS : Evaluate NG placement. MEDICAL HISTORY : Gastroesophageal reflux disease. Chronic obstructive pulmonary disease. Hypertension. SURGICAL HISTORY : None. ENCOUNTER: Subsequent ACUITY: 1 day PAIN SCORE: Non-responsive. LOCATION: Abdomen, upper quadrant. FINDINGS: Dobbhoff catheter is coiled in the hypopharynx. CONCLUSION: Coiled Dobbhoff catheter within the hypopharynx. Luis Manuel Estevez MD on October 17, 2017 at 14:44 Board Certified Radiologist. This report was verified electronically.
--- NOTE | 2017-10-17 19:18 | HHI.CCPN ---
Subjective Remarks/Hospital Course This is a 62-year-old male. Date of admission 10/13/2017. Past records includes oxygen-dependent COPD, hypertension, gastroesophageal reflux disease. Patient since his last admission here is had a lung biopsy which resulted pneumothorax at the [place] in [place]. He was recently treated as an outpatient for pneumonia with levofloxacin and a prednisone taper along with scheduled DuoNeb's at home. He presents to [facility] after being orotracheally intubated in the field 7.0 ET tube due to acute hypoxic respiratory failure. EMS was called due to increasing shortness of breath. Saturations were in the 60s at his residence. According to , patient was being treated for pneumonia Hospital workup includes lactic acid of 5.0. White blood cell count within normal limits. Patient received 2 L normal saline in the interim. Hemodynamically stable currently. Sedated on propofol and fentanyl drips. Subjective: 10/14: No acute events overnight. Fentanyl infusion discontinued the patient tolerated CPAP trials for approximately 2 hours today. 10/15: Patient tolerated CPAP trials for approximately 3 hours today, NG tube dislodge repeat placement of Dobbhoff tube pending. 10/16: Afebrile. Patient tolerated CPAP trials approximately 6 hours today. Dobbhoff tube in place tube feeds initiated. 10/17: Late entry note. Patient hypertensive last evening and during the day. Antihypertensives reinstituted Cardizem and lisinopril. Placement of Dobbhoff tube today no residuals patient tolerating tube feeding. Objective Vital Signs Date Time Temp Pulse Resp B/P (MAP) Pulse Ox O2 Delivery O2 Flow Rate FiO2 10/17/17 18:00 79 10/17/17 16:19 100 40 10/17/17 16:00 97.5 16 189/104 (132) 10/13/17 09:58 Ventilator Intake and Output 10/17/17 10/17/17 10/18/17 08:00 16:00 00:00 Intake Total 362 ml 402 ml 799 ml Output Total 2000 ml 3000 ml Balance -1638 ml 402 ml -2201 ml Result Diagram: 10/16/17 1311 10/16/17 1311 Imaging Last Impressions Chest X-Ray 10/13/17 4549 Signed Impressions: Service Date/Time: Friday, October 13, 2017 06:29 - CONCLUSION: 1. Minimal left basilar infiltrate. 2. Endotracheal tube tip 7 cm above the laura. Artemio Calix MD Objective Remarks GENERAL: 62-year-old male, resting in bed orotracheally intubated and sedated SKIN: Warm and dry. No rash HEAD: Atraumatic. Normocephalic. EYES: Pupils equal and round about 2 mm bilaterally and reactive. No scleral icterus. No injection or drainage. ENT: No nasal bleeding or discharge. Mucous membranes pink and moist. NECK: Trachea midline. No JVD. CARDIOVASCULAR: Tachycardic, RR. S1, S2. No S4. Without murmur, clicks, gallops or rubs RESPIRATORY: No accessory muscle use. Clear to auscultation. Breath sounds equal bilaterally. GASTROINTESTINAL: Abdomen soft, non-tender, nondistended. Hypoactive bowel sounds are appreciated MUSCULOSKELETAL: Extremities without significant peripheral edema. No obvious deformities. NEUROLOGICAL: GCS 6T Withdraws to pain in all 4 extremities. Currently not following commands. Sedated on Propofol infusion A/P Assessment and Plan Neuro/Psych: History of EtOH use Insomnia Patient is currently on propofol at 50 mcgs grams per kilogram per minute for sedation/analgesia while intubated, Versed discontinued Will initiate Precedex infusion for facilitation of CPAP trials RASS -2 Daily sedation vacation Holding temazepam 30 mg by mouth by home medication for insomnia Continue vitamin along with B complex vitamin CV: Hypertension Pulmonary hypertension secondary to COPD Lactic acidosis Currently on normal saline at 84 cc an hour Holding diltiazem 240 mg daily and lisinopril 10 mg daily with borderline blood pressures Serial lactates until clear 2-D echocardiogram 12/29 revealed ejection fraction 55-60%. Mild MR/TR. Pulmonary arterial pressure 64 mmHg 12/6 Cardizem 30 mg every 6 hours, lisinopril 10 mg daily Resp: Acute hypoxic hypercapnic respiratory failure Community acquired pneumonia COPD Gold class D Chronic respiratory failure 2 L oxygen dependent Tobaccoism PRVC 16/500/0.9/5/40 Ventilator bundle Albuterol/ipratropium aerosols every 4 hours with albuterol aerosols every 2 hours. Dyspnea Methylprednisolone 40 mg IV every 8 hours Added budesonide 0.5/2 1 inhalation twice a day Spontaneous breathing trials when clinically indicated Continue CPAP trials daily Patient is on albuterol/ipratropium aerosols every 4 hours while awake in tiotropium 18 mg inhaled daily at home. Recently on prednisone taper GI: Gastroesophageal reflux disease 10/15 Dobhoff tube. Tube feeds initiated Jevity 1.510 cc an hour to advanced to goal rate of 55 cc/hour Famotidine for GI prophylaxis GI. Patient is on omeprazole 20 mg daily for gastroesophageal reflux disease at home. Docusate sodium/senna 1 tablet twice a day for bowel regimen : Mohr catheter has been placed for accurate I's and O's in a critically ill patient Endo: Sliding-scale insulin with Accu-Cheks every 6 hours to maintain euglycemia Novulin R low regimen Renal: Mixed respiratory acidosis and anion gap metabolic acidosis Creatinine currently within normal limits Monitor urine output Accurate I's and O's Status post 2 L normal saline in ED. Currently on normal saline at 84 cc an hour. We'll discontinue upon initiation and toleration of tube feeds Heme: Macrocytic anemia Thrombocytosis Elevated PTT Monitor CBC daily. Follow trends. Does not be transfusion thresholds at this time ID: CAP Patient previously treated with levofloxacin as an outpatient Currently on cefepime and azithromycin day #2 On 10/13/Blood cultures 2, urine culture, sputum, influenza, urine Legionella and pneumococcal antigens all ordered MSK: PT evaluate and treat range of motion FEN: Hyponatremia Replace electrolytes as clinically indicated Access - Utilize peripheral IV. Central line if indicated Prophylaxis - GI -famotidine - DVT -SCD/heparin subcutaneous Dispo: Level 3 Discussed with SILVERING APPLICATOR at bedside (Ila) Physician Nakia Maldonado MD Oct 17, 2017 19:18
[2017-10-17] MEDS ORDERED: DEXMEDETOMIDINE INJ 1,000 MCG in SODIUM CHLOR 0.9% 250 ML INJ 240 ML IV PRN (22:30)
[2017-10-18] VITALS (23 sets, daily range): BP systolic 129–189; BP diastolic 63–99; PULSE 76–104; RESP 14–107; TEMP 97.6–98.7; O2SAT 94–100
[2017-10-18] MEDS: hydrALAZINE HCL 20 MG/ML VIAL IV PUSH PRN ×2 (02:06→18:05)
[2017-10-18] MEDS: CHLORHEXIDINE GLUCONATE 2 % 1 PACK (2 CLOTHS) TOP SCH (04:00)
[2017-10-18] MEDS: ARTIFICIAL TEARS OPTH SOLN 15 ML BTL EACH EYE SCH ×3 (05:09→21:02)
[2017-10-18] MEDS: methylPREDNISolone SOD SUCC 40 MG/1 ML VIAL IV PUSH SCH ×3 (05:09→21:00)
[2017-10-18] MEDS: INSULIN NovoLIN REGULAR SUPPLEMENTAL SCALE SQ SCH ×3 (05:09→17:14)
--- NOTE | 2017-10-18 05:44 | RADRPT ---
EXAM DATE/TIME: 10/18/2017 04:01 [facility] COMPARISON: CHEST SINGLE AP, October 16, 2017, 4:33. INDICATIONS : Shortness of breath, respiratory disease. MEDICAL HISTORY : Chronic obstructive pulmonary disease. Hypertension Gastroesophageal reflux disease. SURGICAL HISTORY : None. ENCOUNTER: Subsequent ACUITY: 1 week PAIN SCORE: Non-responsive. LOCATION: Bilateral chest FINDINGS: A single view of the chest demonstrates the lungs to be symmetrically hyperinflated without evidence of mass. Mild patchy opacity is now noted at the left lung base. Left costophrenic angle is mildly bl unted. cardiomediastinal contours are unremarkable. Osseous structures are intact. CONCLUSION: 1. Mild patchy opacity is present in the left lung base there is a small left effusion. 2. Lungs remain hyperinflated with underlying emphysema. Moiz Cheng MD on October 18, 2017 at 5:41 Board Certified Radiologist. This report was verified electronically.
[2017-10-18 07:07] LABS: AUTOMATED NEUTROPHIL # 6.4 TH/MM3 (1.8-7.7); BASOPHIL % 0.2 % (0.0-2.0); HEMATOCRIT 31.4 % (39.0-51.0); LYMPH % 7.4 % (9.0-44.0); LYMPHOCYTE # 0.6 TH/MM3 (1.0-4.8); MEAN CELL VOLUME 102.2 FL (80.0-100.0); MEAN CORPUSCULAR HEMOGLOBIN 34.3 PG (27.0-34.0); MEAN CORPUSCULAR HGB CONC 33.5 % (32.0-36.0); MONO % 7.3 % (0.0-8.0); NEUT % 85.1 % (16.0-70.0); PLATELET COUNT 310 TH/MM3 (150-450); RED BLOOD COUNT 3.07 MIL/MM3 (4.50-5.90); RED CELL DISTRIBUTION WIDTH 15.1 % (11.6-17.2); WHITE BLOOD COUNT 7.5 TH/MM3 (4.0-11.0)
[2017-10-18 07:20] LABS: HEMO FLAGS AUTO DIFF
[2017-10-18] MEDS: CHLORHEXIDINE 0.12% (ORAL KIT) 15 ML CUP MT SCH ×2 (07:43→20:00)
[2017-10-18 07:51] LABS: MAGNESIUM 1.7 MG/DL (1.5-2.5)
[2017-10-18] MEDS: RESP: BUDESONIDE 0.5 MG/2 ML NEB NEB SCH ×2 (08:01→20:46)
[2017-10-18 08:07] LABS: POTASSIUM 2.8 MEQ/L (3.5-5.1)
[2017-10-18 08:32] LABS: BANDS 3 % (0-6); BLASTS 1 % (0-0); METAMYELOCYTES 2 % (0-1); NEUTROPHIL # MANUAL DIFF 6.6 TH/MM3 (1.8-7.7); PLATELET ESTIMATE SMEAR NORMAL (NORMAL); PLATELET MORPHOLOGY NORMAL (NORMAL); POLYS (SEG NEUTROPHILS) 83 % (16-70); SCAN/DIFF FINAL DIFF MANUAL; WBC DIFF SAMPLE 100
[2017-10-18] MEDS: MULTIVITAMIN TAB PO SCH (09:00)
[2017-10-18] MEDS: LISINOPRIL 10 MG TAB PO SCH (09:00)
[2017-10-18] MEDS: FAMOTIDINE 20 MG/2 ML VIAL IV PUSH SCH ×2 (09:00→21:00)
[2017-10-18] MEDS: DOCUSATE SODIUM 50 MG/SENNA 8.6 MG TAB PO SCH ×2 (09:00→21:00)
[2017-10-18] MEDS: AZITHROMYCIN INJ 500 MG in SODIUM CHLOR 0.9% 250 ML INJ 250 ML IV SCH (09:01)
[2017-10-18] MEDS: SODIUM CHLOR 0.9% 1000 ML INJ 1,000 ML IV SCH (09:01)
[2017-10-18] MEDS: SODIUM CHLORIDE 0.9% FLUSH 10 ML FLUSH IV FLUSH SCH ×2 (09:01→21:01)
[2017-10-18] MEDS: HEPARIN SODIUM - SQ 10,000 UNITS/ML VIAL SQ SCH ×2 (09:02→21:01)
[2017-10-18] MEDS: CEFEPIME INJ 2,000 MG in SODIUM CHLORIDE 0.9% INJ 100 ML IV SCH ×2 (09:04→16:41)
[2017-10-18] MEDS ORDERED: ICU - MAGNESIUM SULFATE 2 GM/NS 100 ML IV PRN ×2 (10:45)
[2017-10-18] MEDS ORDERED: ICU - SODIUM PHOSPHATE 30 MMOL/NS 250 ML IV PRN ×2 (10:45)
[2017-10-18] MEDS ORDERED: ICU - POTASSIUM CHLORIDE/AQUEOUS SOLN 40 MEQ/100 ML IVPB IV PRN (10:45)
[2017-10-18] MEDS ORDERED: ICU - POTASSIUM PHOSPHATE MONOBASIC 500 MG TAB PO PRN (10:45)
[2017-10-18] MEDS ORDERED: ICU - MAGNESIUM SULFATE 4 GM/NS 100 ML IV PRN ×2 (10:45)
[2017-10-18] MEDS ORDERED: POTASSIUM CHLORIDE 25 MEQ EFFERVESCENT TAB PO PRN (10:45)
[2017-10-18] MEDS ORDERED: ICU - POTASSIUM PHOSPHATE 30 MMOL/NS 250 ML IV PRN ×2 (10:45)
[2017-10-18] MEDS ORDERED: ICU - POTASSIUM CHLORIDE/AQUEOUS SOLN 20 MEQ/100 ML IVPB IV PRN (10:45)
[2017-10-18] MEDS ORDERED: ICU - CALL ORDERING PHYSICIAN PRN (10:45)
[2017-10-18] MEDS ORDERED: ICU - MAGNESIUM OXIDE 400 MG TAB PO PRN (10:45)
[2017-10-18] MEDS ORDERED: ICU - D/C ICU ELECTROLYTE ORDERS PRN (10:45)
[2017-10-18] MEDS: LABETALOL HCL 100 MG/20 ML VIAL IV PUSH PRN ×2 (14:46→21:02)
--- NOTE | 2017-10-18 14:49 | HHI.CCPN ---
Subjective Remarks/Hospital Course This is a 62-year-old male. Date of admission 10/13/2017. Past records includes oxygen-dependent COPD, hypertension, gastroesophageal reflux disease. Patient since his last admission here is had a lung biopsy which resulted pneumothorax at the [place] in [place]. He was recently treated as an outpatient for pneumonia with levofloxacin and a prednisone taper along with scheduled DuoNeb's at home. He presents to [facility] after being orotracheally intubated in the field 7.0 ET tube due to acute hypoxic respiratory failure. EMS was called due to increasing shortness of breath. Saturations were in the 60s at his residence. According to , patient was being treated for pneumonia Hospital workup includes lactic acid of 5.0. White blood cell count within normal limits. Patient received 2 L normal saline in the interim. Hemodynamically stable currently. Sedated on propofol and fentanyl drips. Subjective: 10/14: No acute events overnight. Fentanyl infusion discontinued the patient tolerated CPAP trials for approximately 2 hours today. 10/15: Patient tolerated CPAP trials for approximately 3 hours today, NG tube dislodge repeat placement of Dobbhoff tube pending. 10/16: Afebrile. Patient tolerated CPAP trials approximately 6 hours today. Dobbhoff tube in place tube feeds initiated. 10/17: Late entry note. Patient hypertensive last evening and during the day. Antihypertensives reinstituted Cardizem and lisinopril. Placement of Dobbhoff tube today no residuals patient tolerating tube feeding. 10/18: Afebrile .Tolerated CPAP trials approximately 8 hours, SBT parameters and progress in anticipation of extubation, tube feeds now held. Patient alert responding nodding yes and no to questions. Tentative plan for extubation this afternoon. Objective Vital Signs Date Time Temp Pulse Resp B/P (MAP) Pulse Ox O2 Delivery O2 Flow Rate FiO2 10/18/17 12:15 98 35 10/18/17 10:00 98 22 146/82 (103) 10/18/17 08:00 98.3 Intake and Output 10/18/17 10/18/17 10/19/17 08:00 16:00 00:00 Intake Total 379 ml Output Total 550 ml Balance -171 ml Result Diagram: 10/18/17 0614 10/18/17 0641 Imaging Last Impressions Chest X-Ray 10/13/17 0623 Signed Impressions: Service Date/Time: Friday, October 13, 2017 06:29 - CONCLUSION: 1. Minimal left basilar infiltrate. 2. Endotracheal tube tip 7 cm above the laura. Artemio Calix MD Objective Remarks GENERAL: 62-year-old male, resting in bed orotracheally intubated awake and responsive SKIN: Warm and dry. No rash HEAD: Atraumatic. Normocephalic. EYES: Pupils equal and round about 2 mm bilaterally and reactive. No scleral icterus. No injection or drainage. ENT: No nasal bleeding or discharge. Mucous membranes pink and moist. NECK: Trachea midline. No JVD. CARDIOVASCULAR: Tachycardic, RR. S1, S2. No S4. Without murmur, clicks, gallops or rubs RESPIRATORY: No accessory muscle use. Clear to auscultation. Breath sounds equal bilaterally. GASTROINTESTINAL: Abdomen soft, non-tender, nondistended. Hypoactive bowel sounds are appreciated MUSCULOSKELETAL: Extremities without significant peripheral edema. No obvious deformities. NEUROLOGICAL: GCS 11T . RASS-1 Moving extremities x 4 on command. On low-dose Precedex infusion A/P Assessment and Plan Neuro/Psych: History of EtOH use Insomnia Patient is currently on Precedex infusion for ventilator synchrony in anticipation for SBT Will initiate Precedex infusion for facilitation of CPAP trials RASS -1 Daily sedation vacation Holding temazepam 30 mg by mouth by home medication for insomnia Continue vitamin along with B complex vitamin CV: Hypertension Pulmonary hypertension secondary to COPD Lactic acidosis-resolved Discontinue normal saline at 84 cc an hour Serial lactates until clear 2-D echocardiogram 12/29 revealed ejection fraction 55-60%. Mild MR/TR. Pulmonary arterial pressure 64 mmHg 10/17 Begin Cardizem 30 mg every 6 hours, lisinopril 10 mg daily Resp: Acute hypoxic hypercapnic respiratory failure Community acquired pneumonia COPD Gold class D Chronic respiratory failure 2 L oxygen dependent Tobaccoism PRVC 16/500/0.9/5/40 Ventilator bundle Albuterol/ipratropium aerosols every 4 hours with albuterol aerosols every 2 hours. Dyspnea Methylprednisolone 40 mg IV every 8 hours Added budesonide 0.5/2 1 inhalation twice a day Spontaneous breathing trial obtain parameters Continue CPAP trials daily Patient is on albuterol/ipratropium aerosols every 4 hours while awake in tiotropium 18 mg inhaled daily at home. Recently on prednisone taper GI: Gastroesophageal reflux disease 10/15 Dobhoff tube. Tube feeds initiated Jevity 1.510 cc an hour to advanced to goal rate of 55 cc/hour Famotidine for GI prophylaxis GI. Patient is on omeprazole 20 mg daily for gastroesophageal reflux disease at home. Docusate sodium/senna 1 tablet twice a day for bowel regimen : Mohr catheter has been placed for accurate I's and O's in a critically ill patient Endo: Sliding-scale insulin with Accu-Cheks every 6 hours to maintain euglycemia Novulin R low regimen Renal: Mixed respiratory acidosis and anion gap metabolic acidosis Creatinine currently within normal limits Monitor urine output Accurate I's and O's Status post 2 L normal saline in ED. Currently on normal saline at 84 cc an hour. We'll discontinue upon initiation and toleration of tube feeds Heme: Macrocytic anemia Thrombocytosis Elevated PTT Monitor CBC daily. Follow trends. Does not be transfusion thresholds at this time ID: CAP Patient previously treated with levofloxacin as an outpatient Currently on cefepime and azithromycin day #2 On 10/13 /Blood cultures 2, urine culture, sputum, influenza, urine Legionella and pneumococcal antigens NGTD MSK: PT evaluate and treat range of motion FEN: Hyponatremia Replace electrolytes as clinically indicated Access - Utilize peripheral IV. Central line if indicated Prophylaxis - GI -famotidine - DVT -SCD/heparin subcutaneous Dispo: Level 2 Discussed with SWATCH CHECKER at bedside (Jon) Physician Nakia Maldonado MD Oct 18, 2017 14:49
[2017-10-18] MEDS: RESP: ALBUTEROL 2.5 MG/3 ML NEB (PRN) INH ×2 (15:34→20:46)
[2017-10-18] MEDS: DILTIAZEM HCL 30 MG TAB PO SCH (21:01)
[2017-10-19] VITALS (25 sets, daily range): BP systolic 143–199; BP diastolic 82–120; PULSE 63–129; RESP 14–34; TEMP 98.4–98.6; O2SAT 89–100
[2017-10-19] MEDS: DILTIAZEM HCL 30 MG TAB PO SCH ×4 (01:10→19:58)
[2017-10-19] MEDS: CEFEPIME INJ 2,000 MG in SODIUM CHLORIDE 0.9% INJ 100 ML IV SCH ×4 (01:10→22:57)
[2017-10-19] MEDS: CHLORHEXIDINE GLUCONATE 2 % 1 PACK (2 CLOTHS) TOP SCH (04:00)
[2017-10-19] MEDS: ARTIFICIAL TEARS OPTH SOLN 15 ML BTL EACH EYE SCH ×3 (06:00→20:41)
[2017-10-19] MEDS: INSULIN NovoLIN REGULAR SUPPLEMENTAL SCALE SQ SCH ×5 (06:00→23:05)
[2017-10-19] MEDS: methylPREDNISolone SOD SUCC 40 MG/1 ML VIAL IV PUSH SCH ×3 (06:03→20:41)
[2017-10-19] MEDS: CHLORHEXIDINE 0.12% (ORAL KIT) 15 ML CUP MT SCH ×2 (08:00→20:00)
[2017-10-19] MEDS: RESP: BUDESONIDE 0.5 MG/2 ML NEB NEB SCH ×2 (08:17→19:02)
[2017-10-19] MEDS: DOCUSATE SODIUM 50 MG/SENNA 8.6 MG TAB PO SCH ×2 (08:52→19:58)
[2017-10-19] MEDS: HEPARIN SODIUM - SQ 10,000 UNITS/ML VIAL SQ SCH ×2 (08:52→20:09)
[2017-10-19] MEDS: MULTIVITAMIN TAB PO SCH (08:52)
[2017-10-19] MEDS: SODIUM CHLORIDE 0.9% FLUSH 10 ML FLUSH IV FLUSH SCH ×2 (08:53→19:57)
[2017-10-19] MEDS: LISINOPRIL 10 MG TAB PO SCH (08:53)
[2017-10-19] MEDS: AZITHROMYCIN INJ 500 MG in SODIUM CHLOR 0.9% 250 ML INJ 250 ML IV SCH (08:53)
[2017-10-19] MEDS: FAMOTIDINE 20 MG/2 ML VIAL IV PUSH SCH ×2 (08:56→19:57)
[2017-10-19] MEDS: LABETALOL HCL 100 MG/20 ML VIAL IV PUSH PRN ×3 (09:37→19:12)
[2017-10-19] MEDS ORDERED: METOPROLOL TARTRATE 50 MG TAB PO SCH (10:30)
[2017-10-19 12:36] LABS: HEMATOCRIT 32.7 % (39.0-51.0); MEAN CELL VOLUME 101.3 FL (80.0-100.0); MEAN CORPUSCULAR HEMOGLOBIN 33.4 PG (27.0-34.0); MEAN CORPUSCULAR HGB CONC 32.9 % (32.0-36.0); PLATELET COUNT 330 TH/MM3 (150-450); RED BLOOD COUNT 3.23 MIL/MM3 (4.50-5.90); REVIEW FLAG FINAL; WHITE BLOOD COUNT 11.2 TH/MM3 (4.0-11.0)
[2017-10-19] MEDS: hydrALAZINE HCL 20 MG/ML VIAL IV PUSH PRN ×2 (13:19→17:15)
[2017-10-19 13:21] LABS: ALKALINE PHOSPHATASE 65 U/L (45-117); ALT (GPT) 45 U/L (12-78); ANION GAP 5 MEQ/L (5-15); AST (GOT) 38 U/L (15-37); BICARBONATE 35.2 MEQ/L (21.0-32.0); BLOOD UREA NITROGEN 15 MG/DL (7-18); CHLORIDE 92 MEQ/L (98-107); GLOMERULAR FILTRATION RATE 171 ML/MIN (>89); POTASSIUM 4.5 MEQ/L (3.5-5.1); SODIUM (NA) 132 MEQ/L (136-145); TOTAL BILIRUBIN ADULT 0.7 MG/DL (0.2-1.0)
--- NOTE | 2017-10-19 14:04 | HHI.CCPN ---
Subjective Remarks/Hospital Course This is a 62-year-old male. Date of admission 10/13/2017. Past records includes oxygen-dependent COPD, hypertension, gastroesophageal reflux disease. Patient since his last admission here is had a lung biopsy which resulted pneumothorax at the [place] in [place]. He was recently treated as an outpatient for pneumonia with levofloxacin and a prednisone taper along with scheduled DuoNeb's at home. He presents to [facility] after being orotracheally intubated in the field 7.0 ET tube due to acute hypoxic respiratory failure. EMS was called due to increasing shortness of breath. Saturations were in the 60s at his residence. According to , patient was being treated for pneumonia Hospital workup includes lactic acid of 5.0. White blood cell count within normal limits. Patient received 2 L normal saline in the interim. Hemodynamically stable currently. Sedated on propofol and fentanyl drips. Subjective: 10/14: No acute events overnight. Fentanyl infusion discontinued the patient tolerated CPAP trials for approximately 2 hours today. 10/15: Patient tolerated CPAP trials for approximately 3 hours today, NG tube dislodge repeat placement of Dobbhoff tube pending. 10/16: Afebrile. Patient tolerated CPAP trials approximately 6 hours today. Dobbhoff tube in place tube feeds initiated. 10/17: Late entry note. Patient hypertensive last evening and during the day. Antihypertensives reinstituted Cardizem and lisinopril. Placement of Dobbhoff tube today no residuals patient tolerating tube feeding. 10/18: Afebrile .Tolerated CPAP trials approximately 8 hours, SBT parameters and progress in anticipation of extubation, tube feeds now held. Patient alert responding nodding yes and no to questions. Tentative plan for extubation this afternoon. 10/19: Patient awake and alert no respiratory distress. Continues on O2 2 L nasal cannula O2 sat 97%. Patient tolerating diet in no acute distress. Objective Vital Signs Date Time Temp Pulse Resp B/P (MAP) Pulse Ox O2 Delivery O2 Flow Rate FiO2 10/19/17 11:06 91 10/19/17 09:00 26 199/100 (133) 94 10/19/17 08:17 Nasal Cannula 3.00 10/19/17 08:00 98.5 10/18/17 12:15 35 Intake and Output 10/19/17 10/19/17 10/20/17 08:00 16:00 00:00 Intake Total 100 ml Output Total 1250 ml Balance -1150 ml Result Diagram: 10/19/17 1154 10/19/17 1154 Imaging Last Impressions Chest X-Ray 10/13/17 0623 Signed Impressions: Service Date/Time: Friday, October 13, 2017 06:29 - CONCLUSION: 1. Minimal left basilar infiltrate. 2. Endotracheal tube tip 7 cm above the laura. Artemio Calix MD Objective Remarks GENERAL: 62-year-old male, sitting in chair eating lunch, in no acute distress SKIN: Warm and dry. No rash HEAD: Atraumatic. Normocephalic. EYES: Pupils equal and round about 2 mm bilaterally and reactive. No scleral icterus. No injection or drainage. ENT: No nasal bleeding or discharge. Mucous membranes pink and moist. NECK: Trachea midline. No JVD. CARDIOVASCULAR: Tachycardic, RR. S1, S2. No S4. Without murmur, clicks, gallops or rubs RESPIRATORY: No accessory muscle use. Clear to auscultation. Breath sounds equal bilaterally. GASTROINTESTINAL: Abdomen soft, non-tender, nondistended. Hypoactive bowel sounds are appreciated MUSCULOSKELETAL: Extremities without significant peripheral edema. No obvious deformities. NEUROLOGICAL: GCS 15 . RASS0 Moving extremities x 4 on commands A/P Assessment and Plan Neuro/Psych: History of EtOH use Insomnia RASS 0 Daily sedation vacation Holding temazepam 30 mg by mouth by home medication for insomnia Continue vitamin along with B complex vitamin CV: Hypertension Pulmonary hypertension secondary to COPD Lactic acidosis-resolved Discontinued normal saline at 84 cc an hour 10/18 Serial lactates until clear 2-D echocardiogram 12/29 revealed ejection fraction 55-60%. Mild MR/TR. Pulmonary arterial pressure 64 mmHg 10/17 Begin Cardizem 30 mg every 6 hours, lisinopril 10 mg daily, Toprol increased to 100 mg twice a day Resp: Acute hypoxic hypercapnic respiratory failure Community acquired pneumonia COPD Gold class D Chronic respiratory failure 2 L oxygen dependent Tobaccoism Home O2 dependency currently at 2 L/m Albuterol/ipratropium aerosols every 4 hours with albuterol aerosols every 2 hours. Methylprednisolone 40 mg IV every 8 hours Added budesonide 0.5/2 1 inhalation twice a day Spontaneous breathing trial obtain parameters Patient is on albuterol/ipratropium aerosols every 4 hours while awake in tiotropium 18 mg inhaled daily at home. Recently on prednisone taper GI: Gastroesophageal reflux disease Regular diet Famotidine for GI prophylaxis GI. Patient is on omeprazole 20 mg daily for gastroesophageal reflux disease at home. Docusate sodium/senna 1 tablet twice a day for bowel regimen : Mohr catheter has been placed for accurate I's and O's in a critically ill patient Endo: Sliding-scale insulin with Accu-Cheks every 6 hours to maintain euglycemia Novulin R low regimen Renal: Mixed respiratory acidosis and anion gap metabolic acidosis-resolved Creatinine currently within normal limits Monitor urine output Accurate I's and O's Heme: Macrocytic anemia Thrombocytosis Elevated PTT Monitor CBC daily. Follow trends. Does not be transfusion thresholds at this time ID: CAP Patient previously treated with levofloxacin as an outpatient Currently on cefepime and azithromycin day #3 On 10/13 /Blood cultures 2, urine culture, sputum, influenza, urine Legionella and pneumococcal antigens NGTD MSK: PT evaluate and treat range of motion FEN: Hyponatremia Replace electrolytes as clinically indicated Access - Utilize peripheral IV. Central line if indicated Prophylaxis - GI -famotidine - DVT -SCD/heparin subcutaneous Dispo: Level 2 Discussed with SCRAP BURNER at bedside (Jon). [facility] Patient [facility] floor Physician Nakia Maldonado MD Oct 19, 2017 14:04
[2017-10-19] MEDS: RESP: ALBUTEROL 2.5 MG/3 ML NEB (PRN) INH ×3 (16:00→21:34)
[2017-10-19] MEDS ORDERED: LORazepam 2 MG/ML VIAL ONE (17:54)
[2017-10-19] MEDS: LORazepam 2 MG/ML VIAL IV SCH ×2 (19:00→22:57)
[2017-10-19] MEDS: METOPROLOL TARTRATE 50 MG TAB PO SCH (19:58)
[2017-10-19] MEDS: TEMAZEPAM 15 MG CAP PO PRN (20:40)
[2017-10-20] VITALS (12 sets, daily range): BP systolic 155–197; BP diastolic 82–102; PULSE 82–123; RESP 18–35; TEMP 97.4–98.5; O2SAT 89–100
[2017-10-20] MEDS: LABETALOL HCL 100 MG/20 ML VIAL IV PUSH PRN ×2 (00:06→05:21)
[2017-10-20] MEDS: DILTIAZEM HCL 30 MG TAB PO SCH ×4 (02:19→21:39)
[2017-10-20] MEDS: CHLORHEXIDINE GLUCONATE 2 % 1 PACK (2 CLOTHS) TOP SCH ×2 (04:00→23:59)
[2017-10-20] MEDS: methylPREDNISolone SOD SUCC 40 MG/1 ML VIAL IV PUSH SCH ×3 (05:16→21:34)
[2017-10-20] MEDS: ARTIFICIAL TEARS OPTH SOLN 15 ML BTL EACH EYE SCH ×3 (05:16→21:41)
[2017-10-20] MEDS: INSULIN NovoLIN REGULAR SUPPLEMENTAL SCALE SQ SCH ×2 (05:20→12:00)
[2017-10-20] MEDS: CHLORHEXIDINE 0.12% (ORAL KIT) 15 ML CUP MT SCH ×2 (08:00→20:00)
[2017-10-20] MEDS: SODIUM CHLORIDE 0.9% FLUSH 10 ML FLUSH IV FLUSH SCH ×2 (09:00→21:40)
[2017-10-20] MEDS: HEPARIN SODIUM - SQ 10,000 UNITS/ML VIAL SQ SCH ×2 (09:00→21:35)
[2017-10-20] MEDS: METOPROLOL TARTRATE 50 MG TAB PO SCH (09:04)
[2017-10-20] MEDS: DOCUSATE SODIUM 50 MG/SENNA 8.6 MG TAB PO SCH ×2 (09:04→21:36)
[2017-10-20] MEDS: LISINOPRIL 10 MG TAB PO SCH (09:05)
[2017-10-20] MEDS: MULTIVITAMIN TAB PO SCH (09:05)
[2017-10-20] MEDS: FAMOTIDINE 20 MG/2 ML VIAL IV PUSH SCH ×2 (09:06→21:34)
[2017-10-20] MEDS: AZITHROMYCIN INJ 500 MG in SODIUM CHLOR 0.9% 250 ML INJ 250 ML IV SCH (09:07)
[2017-10-20] MEDS: CEFEPIME INJ 2,000 MG in SODIUM CHLORIDE 0.9% INJ 100 ML IV SCH ×2 (09:07→17:53)
[2017-10-20] MEDS: RESP: ALBUTEROL 2.5 MG/3 ML NEB (PRN) INH ×2 (09:19→19:49)
[2017-10-20] MEDS: RESP: BUDESONIDE 0.5 MG/2 ML NEB NEB SCH ×2 (09:19→19:49)
[2017-10-20] MEDS ORDERED: ACETAMINOPHEN 325 MG TAB PO PRN (11:15)
--- NOTE | 2017-10-20 14:43 | HHI.CCPN ---
Subjective Remarks/Hospital Course This is a 62-year-old male. Date of admission 10/13/2017. Past records includes oxygen-dependent COPD, hypertension, gastroesophageal reflux disease. Patient since his last admission here is had a lung biopsy which resulted pneumothorax at the [facility] in [place]. He was recently treated as an outpatient for pneumonia with levofloxacin and a prednisone taper along with scheduled DuoNeb's at home. He presents to [facility] after being orotracheally intubated in the field 7.0 ET tube due to acute hypoxic respiratory failure. EMS was called due to increasing shortness of breath. Saturations were in the 60s at his residence. According to , patient was being treated for pneumonia Hospital workup includes lactic acid of 5.0. White blood cell count within normal limits. Patient received 2 L normal saline in the interim. Hemodynamically stable currently. Sedated on propofol and fentanyl drips. Subjective: 10/14: No acute events overnight. Fentanyl infusion discontinued the patient tolerated CPAP trials for approximately 2 hours today. 10/15: Patient tolerated CPAP trials for approximately 3 hours today, NG tube dislodge repeat placement of Dobbhoff tube pending. 10/16: Afebrile. Patient tolerated CPAP trials approximately 6 hours today. Dobbhoff tube in place tube feeds initiated. 10/17: Late entry note. Patient hypertensive last evening and during the day. Antihypertensives reinstituted Cardizem and lisinopril. Placement of Dobbhoff tube today no residuals patient tolerating tube feeding. 10/18: Afebrile .Tolerated CPAP trials approximately 8 hours, SBT parameters and progress in anticipation of extubation, tube feeds now held. Patient alert responding nodding yes and no to questions. Tentative plan for extubation this afternoon. 10/19: Patient awake and alert no respiratory distress. Continues on O2 2 L nasal cannula O2 sat 97%. Patient tolerating diet in no acute distress. 10/20: Afebrile. Patient required multiple doses of PRN antihypertensive medications overnight. Antihypertensive medications adjusted. Patient stated no complaints. Patient continues on 2 L nasal cannula Objective Vital Signs Date Time Temp Pulse Resp B/P (MAP) Pulse Ox O2 Delivery O2 Flow Rate FiO2 10/20/17 09:21 98 Nasal Cannula 3.00 10/20/17 06:00 82 10/20/17 04:00 98.5 26 160/101 (120) 12/8/17 21:36 30 Intake and Output 10/20/17 10/20/17 10/21/17 08:00 16:00 00:00 Intake Total 240 ml Output Total 670 ml Balance -430 ml Result Diagram: 10/19/17 1154 10/19/17 1154 Imaging Last Impressions Chest X-Ray 10/18/17 0600 Signed Impressions: Service Date/Time: October 04:01 - CONCLUSION: 1. Mild patchy opacity is present in the left lung base there is a small left effusion. 2. Lungs remain hyperinflated with underlying emphysema. Moiz Cheng MD Abdomen X-Ray 10/17/17 0000 Signed Impressions: Service Date/Time: Tuesday, October 17, 2017 14:11 - CONCLUSION: Coiled Dobbhoff catheter within the hypopharynx. Luis Manuel Estevez MD Lower Extremity Ultrasound 10/13/17 0000 Signed Impressions: Service Date/Time: Friday, October 13, 2017 11:09 - CONCLUSION: No DVT in either lower extremity. Artemio Calix MD Last Impressions Chest X-Ray 10/13/17 0623 Signed Impressions: Service Date/Time: Friday, October 13, 2017 06:29 - CONCLUSION: 1. Minimal left basilar infiltrate. 2. Endotracheal tube tip 7 cm above the laura. Artemio Calix MD Objective Remarks GENERAL: 62-year-old male, sitting in in bed in no acute distress SKIN: Warm and dry. No rash HEAD: Atraumatic. Normocephalic. EYES: Pupils equal and round about 2 mm bilaterally and reactive. No scleral icterus. No injection or drainage. ENT: No nasal bleeding or discharge. Mucous membranes pink and moist. NECK: Trachea midline. No JVD. CARDIOVASCULAR: Tachycardic, RR. S1, S2. No S4. Without murmur, clicks, gallops or rubs. Hypertensive SBP 179 RESPIRATORY: No accessory muscle use. Clear to auscultation. Breath sounds equal bilaterally. O2 via nasal cannula GASTROINTESTINAL: Abdomen soft, non-tender, nondistended. Hypoactive bowel sounds are appreciated MUSCULOSKELETAL: Extremities without significant peripheral edema. No obvious deformities. NEUROLOGICAL: GCS 15 . RASS 0 Moving extremities x 4 on commands A/P Assessment and Plan Neuro/Psych: History of EtOH use Insomnia Anxiety disorder RASS 0 Daily sedation vacation Resumed temazepam 30 mg by mouth by home medication for insomnia Continue vitamin along with B complex vitamin Ativan 0.5 mg IV 1 dose CV: Hypertension Pulmonary hypertension secondary to COPD Lactic acidosis-resolved Discontinued normal saline at 84 cc an hour 10/18 2-D echocardiogram 12/29 revealed ejection fraction 55-60%. Mild MR/TR. Pulmonary arterial pressure 64 mmHg 10/17 Begin Cardizem 30 mg every 6 hours, lisinopril 10 mg daily, Toprol increased to 100 mg twice a day 10/20: Readjustment of antihypertensive medications Toprol changed to Toprol-XL 100 mg/day, hydralazine added 10 mg every 8 hours Resp: Acute hypoxic hypercapnic respiratory failure Community acquired pneumonia COPD Gold class D Chronic respiratory failure 2 L oxygen dependent Tobaccoism Home O2 dependency currently at 2 L/m Albuterol/ipratropium aerosols every 4 hours with albuterol aerosols every 2 hours. Methylprednisolone 40 mg IV every 8 hours. Begin to taper Added budesonide 0.5/2 1 inhalation twice a day Spontaneous breathing trial obtain parameters Patient is on albuterol/ipratropium aerosols every 4 hours while awake in tiotropium 18 mg inhaled daily at home. Recently on prednisone taper GI: Gastroesophageal reflux disease Regular diet Famotidine for GI prophylaxis GI. Patient is on omeprazole 20 mg daily for gastroesophageal reflux disease at home. Docusate sodium/senna 1 tablet twice a day for bowel regimen : Mohr catheter discontinued 10/18 accurate I's and O's in a critically ill patient Endo: Sliding-scale insulin with Accu-Cheks every 6 hours to maintain euglycemia Novulin R low regimen Renal: Mixed respiratory acidosis and anion gap metabolic acidosis-resolved Creatinine currently within normal limits Monitor urine output Accurate I's and O's Heme: Macrocytic anemia Thrombocytosis Elevated PTT-resolved Monitor CBC daily. Follow trends. Does not be transfusion thresholds at this time ID: CAP Patient previously treated with levofloxacin as an outpatient Currently on cefepime and azithromycin day #3 On 10/13 /Blood cultures 2, urine culture, sputum, influenza, urine Legionella and pneumococcal antigens NGTD MSK: PT out of bed to chair FEN: Hyponatremia-resolved Replace electrolytes as clinically indicated Access - Utilize peripheral IV. Central line if indicated Prophylaxis - GI -famotidine - DVT -SCD/heparin subcutaneous Dispo: Level 2 Discussed with RESISTOR TESTER at bedside . [facility] Patient transferred to [facility] upon bed availability Physician Nakia Maldonado MD Oct 20, 2017 14:43
[2017-10-20] MEDS: hydrALAZINE HCL 10 MG TAB PO SCH ×2 (15:00→21:37)
[2017-10-20] MEDS ORDERED: LORazepam 2 MG/ML VIAL IV ONE (18:00)
[2017-10-20] MEDS ORDERED: METOPROLOL TARTRATE 5 MG/5 ML VIAL ONE (18:05)
[2017-10-20] MEDS ORDERED: METOPROLOL TARTRATE 5 MG/5 ML VIAL IV PUSH PRN (19:00)
[2017-10-20] MEDS ORDERED: METOPROLOL TARTRATE 100 MG TAB PO SCH (21:00)
[2017-10-20] MEDS: TEMAZEPAM 15 MG CAP PO PRN (21:48)
[2017-10-21] VITALS (8 sets, daily range): BP systolic 103–182; BP diastolic 54–107; PULSE 82–124; RESP 16–20; TEMP 97.3–100; O2SAT 94–100
[2017-10-21] MEDS: INSULIN NovoLIN REGULAR SUPPLEMENTAL SCALE SQ SCH ×4 (00:38→17:20)
[2017-10-21] MEDS: CEFEPIME INJ 2,000 MG in SODIUM CHLORIDE 0.9% INJ 100 ML IV SCH ×3 (00:38→16:26)
[2017-10-21] MEDS: DILTIAZEM HCL 30 MG TAB PO SCH ×4 (00:56→21:31)
[2017-10-21] MEDS: hydrALAZINE HCL 10 MG TAB PO SCH ×3 (04:59→21:31)
[2017-10-21] MEDS: methylPREDNISolone SOD SUCC 40 MG/1 ML VIAL IV PUSH SCH ×3 (04:59→23:56)
[2017-10-21] MEDS: RESP: BUDESONIDE 0.5 MG/2 ML NEB NEB SCH ×2 (07:43→19:12)
[2017-10-21] MEDS: CHLORHEXIDINE 0.12% (ORAL KIT) 15 ML CUP MT SCH ×2 (08:00→20:00)
[2017-10-21] MEDS: METOPROLOL SUCCINATE 50 MG EXTENDED RELEASE TAB PO SCH (08:13)
[2017-10-21] MEDS: DOCUSATE SODIUM 50 MG/SENNA 8.6 MG TAB PO SCH ×2 (08:14→21:00)
[2017-10-21] MEDS: MULTIVITAMIN TAB PO SCH (08:14)
[2017-10-21] MEDS: LISINOPRIL 10 MG TAB PO SCH (08:14)
[2017-10-21] MEDS: FAMOTIDINE 20 MG/2 ML VIAL IV PUSH SCH ×2 (08:14→21:32)
[2017-10-21] MEDS: HEPARIN SODIUM - SQ 10,000 UNITS/ML VIAL SQ SCH ×2 (08:15→21:32)
[2017-10-21] MEDS: AZITHROMYCIN INJ 500 MG in SODIUM CHLOR 0.9% 250 ML INJ 250 ML IV SCH (08:15)
[2017-10-21] MEDS: SODIUM CHLORIDE 0.9% FLUSH 10 ML FLUSH IV FLUSH SCH ×2 (08:16→23:56)
[2017-10-21] MEDS: hydrALAZINE HCL 20 MG/ML VIAL IV PUSH PRN (12:32)
--- NOTE | 2017-10-21 12:49 | HHI.PR ---
Subjective Remarks Follow-up respiratory failure, pneumonia. The patient states that he feels better today. Denies chest pain, dyspnea, cough. No nausea, vomiting, diarrhea, constipation. States that he is on 2 L of oxygen at home. Objective Vitals Vital Signs Date Time Temp Pulse Resp B/P (MAP) Pulse Ox O2 Delivery O2 Flow Rate FiO2 10/21/17 08:00 90 10/21/17 08:00 97.3 95 20 178/102 (127) 100 10/21/17 07:48 100 Nasal Cannula 3.00 10/21/17 07:00 2.00 10/21/17 04:00 97.6 97 16 125/82 (96) 100 10/21/17 04:00 90 10/21/17 00:00 97.6 87 16 137/64 (88) 99 10/21/17 00:00 104 10/20/17 21:30 Nasal Cannula 3.00 10/20/17 21:30 103 10/20/17 20:00 97.4 101 18 155/98 (117) 100 10/20/17 19:49 91 Nasal Cannula 3.00 10/20/17 18:00 110 10/20/17 18:00 97.9 110 180/102 (128) 96 10/20/17 16:00 123 I/O 10/20/17 10/20/17 10/20/17 10/21/17 10/21/17 10/21/17 07:00 15:00 23:00 07:00 15:00 23:00 Intake Total 340 ml 700 ml Output Total 670 ml 800 ml 400 ml Balance -330 ml -100 ml -400 ml Intake Oral 240 ml 700 ml IV Total 100 ml Output Urine Total 670 ml 800 ml 400 ml # Bowel Movements 0 Result Diagram: 10/19/17 1154 10/19/17 1154 Imaging Last Impressions Chest X-Ray 10/18/17 0600 Signed Impressions: Service Date/Time: October 04:01 - CONCLUSION: 1. Mild patchy opacity is present in the left lung base there is a small left effusion. 2. Lungs remain hyperinflated with underlying emphysema. Moiz Cheng MD Abdomen X-Ray 10/17/17 0000 Signed Impressions: Service Date/Time: Tuesday, October 17, 2017 14:11 - CONCLUSION: Coiled Dobbhoff catheter within the hypopharynx. Luis Manuel Estevez MD Lower Extremity Ultrasound 10/13/17 0000 Signed Impressions: Service Date/Time: Friday, October 13, 2017 11:09 - CONCLUSION: No DVT in either lower extremity. Artemio Calix MD Objective Remarks General: No acute distress. Heart: Regular rate and rhythm. No murmur. Lungs: Scattered wheeze. No rhonchi noted. Breathing is nonlabored. Abdomen: Soft, nontender, nondistended. Extremities: No lower extremity edema. Psych: Alert and oriented. Procedures None Urinary Catheter: No Vascular Central Line Catheter: No A/P Problem List: (1) Metabolic acidosis with respiratory acidosis ICD Code: E87.4 - Mixed disorder of acid-base balance (2) Thrombocytosis ICD Code: D47.3 - Essential (hemorrhagic) thrombocythemia (3) Macrocytic anemia ICD Code: D53.9 - Nutritional anemia, unspecified (4) Lactic acidosis ICD Code: E87.2 - Acidosis (5) Gastroesophageal reflux disease ICD Code: K21.9 - Gastro-esophageal reflux disease without esophagitis (6) Hypertension ICD Code: I10 - Essential (primary) hypertension (7) COPD, group D, by GOLD 2017 classification ICD Code: J44.9 - Chronic obstructive pulmonary disease, unspecified (8) Acute respiratory failure with hypoxia and hypercapnia ICD Code: J96.01 - Acute respiratory failure with hypoxia; J96.02 - Acute respiratory failure with hypercapnia (9) Tobacco abuse ICD Code: Z72.0 - Tobacco abuse Status: Chronic (10) Sepsis ICD Code: A41.9 - Sepsis, unspecified organism Status: Acute (11) Pulmonary hypertension due to COPD ICD Code: I27.23 - Pulmonary hypertension due to lung diseases and hypoxia; J44.9 - Chronic obstructive pulmonary disease, unspecified (12) Elevated partial thromboplastin time (PTT) ICD Code: R79.1 - Abnormal coagulation profile Assessment and Plan 1. Acute hypoxic, hypercapnic respiratory failure: Improving. Continue supplemental oxygen. He is home oxygen dependent at 2 L continuous. Continue DuoNeb, albuterol nebulizers. Taper steroids. 2. Community-acquired pneumonia: Continue antibiotics. 3. COPD with chronic respiratory failure: Patient is oxygen dependent at home. Continue nebulizers, steroids, oxygen. 4. Hypertension: Continue Cardizem, lisinopril, Toprol-XL hydralazine. 5. GERD: Famotidine. 6. Anemia: H&H stable. Monitor labs. 7. Hyponatremia: Resolved. 8. DVT prophylaxis: SCDs, heparin. Discharge Planning Anticipate discharge home soon if patient continues to improve clinically, possibly next 1-2 days. Problem Qualifiers (1) Gastroesophageal reflux disease: Qualified Codes: K21.9 - Gastro-esophageal reflux disease without esophagitis (2) Hypertension: Qualified Codes: I10 - Essential (primary) hypertension (3) Sepsis: Qualified Codes: A41.9 - Sepsis, unspecified organism Cirilo Regalado MD Oct 21, 2017 12:49
[2017-10-21 13:10] LABS: AUTOMATED NEUTROPHIL # 10.2 TH/MM3 (1.8-7.7); BASOPHIL % 0.2 % (0.0-2.0); EOSINOPHIL % 0.1 % (0.0-4.0); HEMATOCRIT 33.2 % (39.0-51.0); HEMO FLAGS DIFF FINAL; LYMPH % 3.9 % (9.0-44.0); LYMPHOCYTE # 0.4 TH/MM3 (1.0-4.8); MEAN CELL VOLUME 101.1 FL (80.0-100.0); MEAN CORPUSCULAR HEMOGLOBIN 34.5 PG (27.0-34.0); MEAN CORPUSCULAR HGB CONC 34.1 % (32.0-36.0); MONO % 5.5 % (0.0-8.0); NEUT % 90.3 % (16.0-70.0); PLATELET COUNT 298 TH/MM3 (150-450); RED BLOOD COUNT 3.29 MIL/MM3 (4.50-5.90); RED CELL DISTRIBUTION WIDTH 14.9 % (11.6-17.2); WHITE BLOOD COUNT 11.3 TH/MM3 (4.0-11.0)
[2017-10-21 13:32] LABS: BICARBONATE 38.3 MEQ/L (21.0-32.0); POTASSIUM 3.5 MEQ/L (3.5-5.1)
[2017-10-21] MEDS: ARTIFICIAL TEARS OPTH SOLN 15 ML BTL EACH EYE SCH ×3 (14:00→22:00)
[2017-10-21] MEDS: ALPRAZolam 0.5 MG TAB PO PRN ×2 (16:25→23:55)
[2017-10-21] MEDS: TEMAZEPAM 15 MG CAP PO PRN (21:31)
[2017-10-22] VITALS (15 sets, daily range): BP systolic 141–166; BP diastolic 82–97; PULSE 58–106; RESP 18–22; TEMP 97.4–98.6; O2SAT 94–99
[2017-10-22] MEDS: CEFEPIME INJ 2,000 MG in SODIUM CHLORIDE 0.9% INJ 100 ML IV SCH ×4 (02:26→23:16)
[2017-10-22] MEDS: DILTIAZEM HCL 30 MG TAB PO SCH ×4 (02:27→21:18)
[2017-10-22] MEDS: CHLORHEXIDINE GLUCONATE 2 % 1 PACK (2 CLOTHS) TOP SCH (04:00)
[2017-10-22] MEDS: ARTIFICIAL TEARS OPTH SOLN 15 ML BTL EACH EYE SCH ×3 (06:00→21:19)
[2017-10-22] MEDS: INSULIN NovoLIN REGULAR SUPPLEMENTAL SCALE SQ SCH ×5 (06:00→23:14)
[2017-10-22] MEDS: hydrALAZINE HCL 10 MG TAB PO SCH ×3 (06:22→21:18)
[2017-10-22] MEDS: methylPREDNISolone SOD SUCC 40 MG/1 ML VIAL IV PUSH SCH ×2 (06:23→21:17)
[2017-10-22 07:26] LABS: AUTOMATED NEUTROPHIL # 11.3 TH/MM3 (1.8-7.7); BASOPHIL % 0.3 % (0.0-2.0); HEMATOCRIT 30.9 % (39.0-51.0); LYMPH % 3.7 % (9.0-44.0); LYMPHOCYTE # 0.5 TH/MM3 (1.0-4.8); MEAN CELL VOLUME 100.7 FL (80.0-100.0); MEAN CORPUSCULAR HEMOGLOBIN 33.8 PG (27.0-34.0); MEAN CORPUSCULAR HGB CONC 33.5 % (32.0-36.0); MONO % 3.8 % (0.0-8.0); NEUT % 92.2 % (16.0-70.0); PLATELET COUNT 269 TH/MM3 (150-450); RED BLOOD COUNT 3.07 MIL/MM3 (4.50-5.90); RED CELL DISTRIBUTION WIDTH 14.7 % (11.6-17.2); WHITE BLOOD COUNT 12.2 TH/MM3 (4.0-11.0)
[2017-10-22 07:33] LABS: HEMO FLAGS AUTO DIFF
[2017-10-22 07:54] LABS: BICARBONATE 37.6 MEQ/L (21.0-32.0); MAGNESIUM 1.8 MG/DL (1.5-2.5); POTASSIUM 3.6 MEQ/L (3.5-5.1)
[2017-10-22] MEDS: CHLORHEXIDINE 0.12% (ORAL KIT) 15 ML CUP MT SCH ×2 (08:00→20:00)
[2017-10-22] MEDS: DOCUSATE SODIUM 50 MG/SENNA 8.6 MG TAB PO SCH ×2 (08:22→21:00)
[2017-10-22] MEDS: LISINOPRIL 10 MG TAB PO SCH (08:25)
[2017-10-22] MEDS: MULTIVITAMIN TAB PO SCH (08:25)
[2017-10-22] MEDS: FAMOTIDINE 20 MG/2 ML VIAL IV PUSH SCH ×2 (08:26→21:17)
[2017-10-22] MEDS: METOPROLOL SUCCINATE 50 MG EXTENDED RELEASE TAB PO SCH (08:26)
[2017-10-22 08:27] LABS: SCAN/DIFF AUTO DIFF CONFIRMED
[2017-10-22] MEDS: HEPARIN SODIUM - SQ 10,000 UNITS/ML VIAL SQ SCH ×2 (08:27→21:17)
[2017-10-22] MEDS: AZITHROMYCIN INJ 500 MG in SODIUM CHLOR 0.9% 250 ML INJ 250 ML IV SCH (08:28)
[2017-10-22] MEDS: SODIUM CHLORIDE 0.9% FLUSH 10 ML FLUSH IV FLUSH SCH ×2 (09:00→21:18)
[2017-10-22] MEDS: RESP: BUDESONIDE 0.5 MG/2 ML NEB NEB SCH ×2 (09:26→19:22)
--- NOTE | 2017-10-22 11:08 | HHI.PR ---
Subjective Remarks Follow up respiratory failure. Patient states that he is feeling better. Occasional cough. No chest pain. Objective Vitals Vital Signs Date Time Temp Pulse Resp B/P (MAP) Pulse Ox O2 Delivery O2 Flow Rate FiO2 10/22/17 10:13 102 10/22/17 08:04 106 10/22/17 08:00 97.4 91 20 159/91 (113) 96 10/22/17 07:41 106 10/22/17 07:40 Nasal Cannula 2.00 30 10/22/17 04:00 98.4 86 20 145/82 (103) 96 10/22/17 00:00 98.5 92 22 141/91 (108) 96 10/21/17 20:00 97.8 109 20 182/107 (132) 96 10/21/17 19:12 94 Nasal Cannula 3.00 10/21/17 16:00 97.5 98 20 147/70 (95) 96 10/21/17 16:00 124 10/21/17 12:00 91 10/21/17 12:00 97.3 82 20 155/92 (113) 100 I/O 10/21/17 10/21/17 10/21/17 10/22/17 10/22/17 10/22/17 07:00 15:00 23:00 07:00 15:00 23:00 Intake Total 1100 ml 220 ml Output Total 400 ml 1450 ml 500 ml Balance -400 ml -350 ml -280 ml Intake Oral 1100 ml 220 ml Output Urine Total 400 ml 1450 ml 500 ml # Bowel Movements 0 0 Result Diagram: 10/22/17 0700 10/22/17 0700 Imaging Last Impressions Chest X-Ray 10/18/17 0600 Signed Impressions: Service Date/Time: October 04:01 - CONCLUSION: 1. Mild patchy opacity is present in the left lung base there is a small left effusion. 2. Lungs remain hyperinflated with underlying emphysema. Moiz Cheng MD Abdomen X-Ray 10/17/17 0000 Signed Impressions: Service Date/Time: Tuesday, October 17, 2017 14:11 - CONCLUSION: Coiled Dobbhoff catheter within the hypopharynx. Luis Manuel Estevez MD Lower Extremity Ultrasound 10/13/17 0000 Signed Impressions: Service Date/Time: Friday, October 13, 2017 11:09 - CONCLUSION: No DVT in either lower extremity. Artemio Calix MD Objective Remarks General: No acute distress. Heart: Regular rate and rhythm. No murmur. Lungs: Scattered wheeze. No rhonchi noted. Breathing is nonlabored. Abdomen: Soft, nontender, nondistended. Extremities: No lower extremity edema. Psych: Alert and oriented. Procedures None Urinary Catheter: No Vascular Central Line Catheter: No A/P Problem List: (1) Metabolic acidosis with respiratory acidosis ICD Code: E87.4 - Mixed disorder of acid-base balance (2) Thrombocytosis ICD Code: D47.3 - Essential (hemorrhagic) thrombocythemia (3) Macrocytic anemia ICD Code: D53.9 - Nutritional anemia, unspecified (4) Lactic acidosis ICD Code: E87.2 - Acidosis (5) Gastroesophageal reflux disease ICD Code: K21.9 - Gastro-esophageal reflux disease without esophagitis (6) Hypertension ICD Code: I10 - Essential (primary) hypertension (7) COPD, group D, by GOLD 2017 classification ICD Code: J44.9 - Chronic obstructive pulmonary disease, unspecified (8) Acute respiratory failure with hypoxia and hypercapnia ICD Code: J96.01 - Acute respiratory failure with hypoxia; J96.02 - Acute respiratory failure with hypercapnia (9) Tobacco abuse ICD Code: Z72.0 - Tobacco abuse Status: Chronic (10) Sepsis ICD Code: A41.9 - Sepsis, unspecified organism Status: Acute (11) Pulmonary hypertension due to COPD ICD Code: I27.23 - Pulmonary hypertension due to lung diseases and hypoxia; J44.9 - Chronic obstructive pulmonary disease, unspecified (12) Elevated partial thromboplastin time (PTT) ICD Code: R79.1 - Abnormal coagulation profile Assessment and Plan 10/22/17 Slight improvement overall. Continue treatment of pneumonia, COPD. Taper steroids. 1. Acute hypoxic, hypercapnic respiratory failure: Improving. Continue supplemental oxygen. He is home oxygen dependent at 2 L continuous. Continue DuoNeb, albuterol nebulizers. Taper steroids. 2. Community-acquired pneumonia: Continue antibiotics. 3. COPD with chronic respiratory failure: Patient is oxygen dependent at home. Continue nebulizers, steroids, oxygen. 4. Hypertension: Continue Cardizem, lisinopril, Toprol-XL hydralazine. 5. GERD: Famotidine. 6. Anemia: H&H stable. Monitor labs. 7. Hyponatremia: Resolved. 8. DVT prophylaxis: SCDs, heparin. Discharge Planning Anticipate discharge home soon if patient continues to improve clinically, possibly next 1-2 days. Problem Qualifiers (1) Gastroesophageal reflux disease: Qualified Codes: K21.9 - Gastro-esophageal reflux disease without esophagitis (2) Hypertension: Qualified Codes: I10 - Essential (primary) hypertension (3) Sepsis: Qualified Codes: A41.9 - Sepsis, unspecified organism Cirilo Regalado MD Oct 22, 2017 11:08
--- NOTE | 2017-10-22 11:20 | HHI.FF ---
Face to Face Verification Diagnosis: (1) COPD exacerbation (2) Acute respiratory failure with hypoxia and hypercapnia (3) Pneumonia Physical Therapy Order: Evaluate and Treat Home Health Nursing Order: Nursing assessment with vital signs I have seen patient Edin Guzmán on 10/22/17. My clinical findings support the need for the requested home health care services because: Patient has SOB Deconditioned w/ increased weakness I certify that my clinical findings support that this patient is homebound because: Hx COPD- exertion dyspnea/weakness Cirilo Regalado MD Oct 22, 2017 11:20
[2017-10-22] MEDS: ALPRAZolam 0.5 MG TAB PO PRN ×2 (14:28→22:06)
[2017-10-22] MEDS: TEMAZEPAM 15 MG CAP PO PRN (23:18)
[2017-10-23] VITALS: BP 144/84; PULSE 72; PULSE 84; RESP 18; TEMP 98; O2SAT 95
[2017-10-23] MEDS: CHLORHEXIDINE GLUCONATE 2 % 1 PACK (2 CLOTHS) TOP SCH (00:56)
[2017-10-23] MEDS: DILTIAZEM HCL 30 MG TAB PO SCH ×2 (02:18→09:06)
[2017-10-23 04:00] VITALS: BP 142/74; PULSE 80; PULSE 88; RESP 16; TEMP 96.1; O2SAT 99
[2017-10-23] MEDS: hydrALAZINE HCL 10 MG TAB PO SCH ×2 (05:37→14:25)
[2017-10-23] MEDS: INSULIN NovoLIN REGULAR SUPPLEMENTAL SCALE SQ SCH ×2 (05:38→12:00)
[2017-10-23] MEDS: ARTIFICIAL TEARS OPTH SOLN 15 ML BTL EACH EYE SCH ×2 (05:42→14:00)
[2017-10-23] MEDS: CEFEPIME INJ 2,000 MG in SODIUM CHLORIDE 0.9% INJ 100 ML IV SCH (07:52)
[2017-10-23 08:00] VITALS: BP 186/85; PULSE 73; PULSE 81; RESP 20; TEMP 97.3; O2SAT 100
[2017-10-23] MEDS: RESP: BUDESONIDE 0.5 MG/2 ML NEB NEB SCH (08:00)
[2017-10-23] MEDS: SODIUM CHLORIDE 0.9% FLUSH 10 ML FLUSH IV FLUSH SCH (09:00)
[2017-10-23] MEDS: HEPARIN SODIUM - SQ 10,000 UNITS/ML VIAL SQ SCH (09:00)
[2017-10-23] MEDS: FAMOTIDINE 20 MG/2 ML VIAL IV PUSH SCH (09:06)
[2017-10-23] MEDS: METOPROLOL SUCCINATE 50 MG EXTENDED RELEASE TAB PO SCH (09:06)
[2017-10-23] MEDS: LISINOPRIL 10 MG TAB PO SCH (09:06)
[2017-10-23] MEDS: MULTIVITAMIN TAB PO SCH (09:06)
[2017-10-23] MEDS: DOCUSATE SODIUM 50 MG/SENNA 8.6 MG TAB PO SCH (09:07)
[2017-10-23] MEDS: AZITHROMYCIN INJ 500 MG in SODIUM CHLOR 0.9% 250 ML INJ 250 ML IV SCH (09:07)
[2017-10-23] MEDS: methylPREDNISolone SOD SUCC 40 MG/1 ML VIAL IV PUSH SCH (09:07)
--- NOTE | 2017-10-23 11:03 | HHI.PR ---
Subjective Remarks Follow up respiratory failure. Patient states that his breathing is back to baseline. No chest pain, nausea, vomiting. Wants to go home. Objective Vitals Vital Signs Date Time Temp Pulse Resp B/P (MAP) Pulse Ox O2 Delivery O2 Flow Rate FiO2 10/23/17 08:00 73 10/23/17 08:00 96 Nasal Cannula 2.00 30 10/23/17 08:00 97.3 81 20 186/85 (118) 100 10/23/17 04:00 96.1 88 16 142/74 (96) 99 10/23/17 04:00 80 10/23/17 00:00 98.0 84 18 144/84 (104) 95 10/23/17 00:00 72 10/22/17 20:00 95 10/22/17 20:00 98.5 58 18 164/94 (117) 94 10/22/17 19:25 97 Nasal Cannula 2.00 10/22/17 18:31 100 10/22/17 16:24 98 10/22/17 16:24 10/22/17 16:00 97.9 98 20 166/92 (116) 95 10/22/17 14:04 88 10/22/17 13:50 10/22/17 12:11 106 10/22/17 12:00 98.6 94 20 154/97 (116) 94 I/O 10/22/17 10/22/17 10/22/17 10/23/17 10/23/17 10/23/17 07:00 15:00 23:00 07:00 15:00 23:00 Intake Total 220 ml 680 ml 100 ml Output Total 500 ml 800 ml Balance -280 ml 680 ml -700 ml Intake Oral 220 ml 480 ml IV Total 200 ml 100 ml Output Urine Total 500 ml 800 ml # Voids 3 # Bowel Movements 0 Result Diagram: 10/22/17 0700 10/22/17 0700 Imaging Last Impressions Chest X-Ray 10/18/17 0600 Signed Impressions: Service Date/Time: October 04:01 - CONCLUSION: 1. Mild patchy opacity is present in the left lung base there is a small left effusion. 2. Lungs remain hyperinflated with underlying emphysema. Moiz Cheng MD Abdomen X-Ray 10/17/17 0000 Signed Impressions: Service Date/Time: Tuesday, October 17, 2017 14:11 - CONCLUSION: Coiled Dobbhoff catheter within the hypopharynx. Luis Manuel Estevez MD Lower Extremity Ultrasound 10/13/17 0000 Signed Impressions: Service Date/Time: Friday, October 13, 2017 11:09 - CONCLUSION: No DVT in either lower extremity. Artemio Calix MD Objective Remarks General: No acute distress. Heart: Regular rate and rhythm. No murmur. Lungs: Scattered wheeze. No rhonchi noted. Breathing is nonlabored. Abdomen: Soft, nontender, nondistended. Extremities: No lower extremity edema. Psych: Alert and oriented. Procedures None Urinary Catheter: No Vascular Central Line Catheter: No A/P Problem List: (1) Metabolic acidosis with respiratory acidosis ICD Code: E87.4 - Mixed disorder of acid-base balance (2) Thrombocytosis ICD Code: D47.3 - Essential (hemorrhagic) thrombocythemia (3) Macrocytic anemia ICD Code: D53.9 - Nutritional anemia, unspecified (4) Lactic acidosis ICD Code: E87.2 - Acidosis (5) Gastroesophageal reflux disease ICD Code: K21.9 - Gastro-esophageal reflux disease without esophagitis (6) Hypertension ICD Code: I10 - Essential (primary) hypertension (7) COPD, group D, by GOLD 2017 classification ICD Code: J44.9 - Chronic obstructive pulmonary disease, unspecified (8) Acute respiratory failure with hypoxia and hypercapnia ICD Code: J96.01 - Acute respiratory failure with hypoxia; J96.02 - Acute respiratory failure with hypercapnia (9) Tobacco abuse ICD Code: Z72.0 - Tobacco abuse Status: Chronic (10) Sepsis ICD Code: A41.9 - Sepsis, unspecified organism Status: Acute (11) Pulmonary hypertension due to COPD ICD Code: I27.23 - Pulmonary hypertension due to lung diseases and hypoxia; J44.9 - Chronic obstructive pulmonary disease, unspecified (12) Elevated partial thromboplastin time (PTT) ICD Code: R79.1 - Abnormal coagulation profile Assessment and Plan 10/23/17 Respiratory status improving. Continue treatment of pneumonia, COPD. Taper steroids. 1. Acute hypoxic, hypercapnic respiratory failure: Improving. Continue supplemental oxygen. He is home oxygen dependent at 2 L continuous. Continue DuoNeb, albuterol nebulizers. Taper steroids. 2. Community-acquired pneumonia: Continue antibiotics. 3. COPD with chronic respiratory failure: Patient is oxygen dependent at home. Continue nebulizers, steroids, oxygen. 4. Hypertension: BP has remained elevated. Continue Cardizem, lisinopril, Toprol -XL. Increase hydralazine. 5. GERD: Famotidine. 6. Anemia: H&H stable. Monitor labs. 7. Hyponatremia: Resolved. 8. DVT prophylaxis: SCDs, heparin. 9. Leukocytosis: Most likely due to steroids. Discharge Planning Plan for discharge home today following PT eval. Problem Qualifiers (1) Gastroesophageal reflux disease: Qualified Codes: K21.9 - Gastro-esophageal reflux disease without esophagitis (2) Hypertension: Qualified Codes: I10 - Essential (primary) hypertension (3) Sepsis: Qualified Codes: A41.9 - Sepsis, unspecified organism Cirilo Regalado MD Oct 23, 2017 11:03
[2017-10-23] MEDS ORDERED: HYDR-3798 PO (11:15)
[2017-10-23] MEDS ORDERED: METO1TAB9 PO (11:15)
[2017-10-23] MEDS ORDERED: PRED10PA2 PO (11:15)
[2017-10-23] MEDS ORDERED: BUDE.5I NEB (11:15)
--- NOTE | 2017-10-23 11:16 | HHI.DCPOC ---
Discharge Care Plan Diagnosis: (1) COPD exacerbation (2) Pneumonia (3) Acute respiratory failure with hypoxia and hypercapnia (4) Hypertension Goals to Promote Your Health * To prevent worsening of your condition and complications * To maintain your health at the optimal level Directions to Meet Your Goals Take your medications as prescribed Follow your dietary instruction Follow activity as directed Keep your appointments as scheduled Take your immunizations and boosters as scheduled If your symptoms worsen call your PCP, if no PCP go to Urgent Care Center or Emergency Room Smoking is Dangerous to Your Health. Avoid second hand smoke Call the 24-hour hour crisis hotline for domestic abuse at Cirilo Regalado MD Oct 23, 2017 11:16
[2017-10-23 12:00] VITALS: BP 153/90; PULSE 85; RESP 20; TEMP 98.1; O2SAT 90
[2017-10-23] MEDS ORDERED: ALPR0.25 PO (12:40)
[2017-10-23] MEDS ORDERED: DILTIAZEM-CD 240 MG CAP ER PO SCH (13:00)
[2017-10-23] MEDS ORDERED: DILTIAZEM HCL 60 MG TAB PO SCH (14:00)
--- NOTE | 2017-10-25 08:31 | PQ ---
Physician Query Response Document PATIENT: SOHA LOPEZ : 1955 ADMIT DATE: 10/13/2017 8:15 AM DISCH DATE: 10/23/2017 7:20 PM RESPONDING PROVIDER #: [email or web address] QUERY TEXT: Documentation Clarification Your help is requested in clarifying the following clinical documentation, if you can please further specify in the medical record and discharge summary. please contact the CDI/Coding hotline with any questions at [email or web address]. [phone] The patient's Clinical Indicators include: Sepsis documented in the " problem list " (number 10) but not documented in the "assessment and plan" Was Sepsis ruled out ? Query created by: Kaur Lindsay on 10/24/2017 6:58 AM RESPONSE TEXT: Clarification of documentation: Patient presented with sepsis secondary to respiratory source. He had tachycardia and elevated serum lactic acid. He was treated with antibiotics and sepsis resolved. Electronically signed by: Cirilo Regalado MD 10/25/2017 8:27 AM
== END 2017-10-23 19:20 | disposition home health service (06) | DRG 870 ==
LOC: NEPC 06:18 → NEDA 08:15 → HIME 10:15 → N04B 10-20 20:39
PROVIDERS: ADMIT Internal Medicine Critical Care Medicine; ATTEND Family Medicine
PROC: 5A1955Z Respiratory Ventilation, Greater than 96 Consecutive Hours (ICD-10-PCS; principal; 2017-10-13)
DX: A41.9 Sepsis, unspecified organism (principal); J96.21 Acute and chronic respiratory failure with hypoxia; J18.9 Pneumonia, unspecified organism; J96.22 Acute and chronic respiratory failure with hypercapnia; E87.4 Mixed disorder of acid-base balance; J44.1 Chronic obstructive pulmonary disease with (acute) exacerbation; E87.1 Hypo-osmolality and hyponatremia; J44.0 Chronic obstructive pulmonary disease with (acute) lower respiratory infection; Z99.81 Dependence on supplemental oxygen; I27.23 Pulmonary hypertension due to lung diseases and hypoxia; D53.9 Nutritional anemia, unspecified; K21.9 Gastro-esophageal reflux disease without esophagitis; I10 Essential (primary) hypertension; R79.1 Abnormal coagulation profile; D72.829 Elevated white blood cell count, unspecified; T38.0X5A Adverse effect of glucocorticoids and synthetic analogues, initial encounter; Z87.891 Personal history of nicotine dependence
CPT/HCPCS: 36600; 71010; 74000; 76937; 80048; 80053; 81001; 82550; 82805; 82948; 83605; 83735; 84100; 84132; 84484; 85007; 85025; 85027; 85610; 85730; 87040; 87086; 87641; 93005; 93306; 93970; 94002; 94003; 94640; 94664; 94667; 96374; 96375; J0360; J0456; J0692; J1644; J2060; J2250; J2765; J2920; J2930; J3010; J3480; J7030; J7040; J7050; J7613; J7626